=== PATIENT | female | born 1955 | race Caucasian/White ===

== ENCOUNTER 2020-01-18 09:20 | Outpatient (REF) | payer OTHER, SELFPAY ==
[2020-01-18 12:29] LABS: Erythrocyte Sedimentation Rate 10 MM/HR (0-20)
== END 2020-01-18 09:21 | disposition home or self-care (01) ==
LOC: HO.LAB 09:20
PROVIDERS: PCP Internal Medicine; Visit Provider Student in an Organized Health Care Education/Training Program
DX: M31.6 Other giant cell arteritis (principal); Z79.52 Long term (current) use of systemic steroids
CPT/HCPCS: 36415; 85652; 86140

== ENCOUNTER → 2020-02-25 08:02 | Outpatient (BNVA) | payer OTHER, SELFPAY | PROVIDERS: PCP Internal Medicine; Referring Provider Internal Medicine; Visit Provider Student in an Organized Health Care Education/Training Program | DX: Z76.89 Persons encountering health services in other specified circumstances (principal) ==

== ENCOUNTER 2020-04-27 12:30 | Outpatient (REF) | payer OTHER, SELFPAY ==
[2020-04-27 14:35] LABS: C Reactive Protein 0.29 mg/dL (< or = 0.50)
[2020-04-27 14:40] LABS: Erythrocyte Sedimentation Rate 8 MM/HR (0-20)
== END 2020-04-27 12:31 | disposition home or self-care (01) ==
LOC: HO.LAB 12:30
PROVIDERS: PCP Internal Medicine; Visit Provider Student in an Organized Health Care Education/Training Program
DX: M35.3 Polymyalgia rheumatica (principal)
CPT/HCPCS: 36415; 85652; 86140

== ENCOUNTER → 2020-05-04 08:18 | Outpatient (BNVA) | payer OTHER, SELFPAY | PROVIDERS: PCP Internal Medicine; Referring Provider Internal Medicine; Visit Provider Student in an Organized Health Care Education/Training Program ==

== ENCOUNTER 2020-06-30 08:06 | Outpatient (REF) | payer OTHER, SELFPAY ==
[2020-06-30 09:31] LABS: C Reactive Protein 0.24 mg/dL (< or = 0.50)
[2020-06-30 10:02] LABS: Erythrocyte Sedimentation Rate 14 MM/HR (0-20)
== END 2020-06-30 08:07 | disposition home or self-care (01) ==
LOC: HO.LAB 08:06
PROVIDERS: PCP Internal Medicine; Visit Provider Student in an Organized Health Care Education/Training Program
DX: M35.3 Polymyalgia rheumatica (principal)
CPT/HCPCS: 36415; 85652; 86140

== ENCOUNTER 2020-07-07 08:40 | Outpatient (REF) | payer OTHER, SELFPAY ==
--- NOTE | ~2020-07-07 | XR_ITS ---
EXAMINATION: XR SHOULDER , BILATERAL CLINICAL INFORMATION: Polymyalgia COMPARISON: Prior study 2019 TECHNIQUE: AP external rotation, Grashey, scapular Y, and axillary views of the shoulder. FINDINGS: BONES: There is no fracture or dislocation, no osteolytic or osteoblastic lesion. JOINTS: Glenohumeral joint is properly positioned. There is mild degenerative osteoarthritis of the acromioclavicular joint. SOFT TISSUE AND INCLUDED LUNG: There are surgical clips in the left axilla. Otherwise unremarkable. XR/XR shoulder LT min 2V IMPRESSION: Mild degenerative osteoarthritic changes of AC joints bilaterally. No fracture or dislocation. No destructive bone lesion. No soft tissue calcifications.
--- NOTE | ~2020-07-07 | XR_ITS ---
EXAMINATION: XR SHOULDER , BILATERAL CLINICAL INFORMATION: Polymyalgia COMPARISON: Prior study 2019 TECHNIQUE: AP external rotation, Grashey, scapular Y, and axillary views of the shoulder. FINDINGS: BONES: There is no fracture or dislocation, no osteolytic or osteoblastic lesion. JOINTS: Glenohumeral joint is properly positioned. There is mild degenerative osteoarthritis of the acromioclavicular joint. SOFT TISSUE AND INCLUDED LUNG: There are surgical clips in the left axilla. Otherwise unremarkable. XR/XR shoulder RT min 2V IMPRESSION: Mild degenerative osteoarthritic changes of AC joints bilaterally. No fracture or dislocation. No destructive bone lesion. No soft tissue calcifications.
== END 2020-07-07 08:41 | disposition home or self-care (01) ==
LOC: HO.XRAY 08:40
PROVIDERS: PCP Internal Medicine; Visit Provider Student in an Organized Health Care Education/Training Program
DX: M35.3 Polymyalgia rheumatica (principal); Z79.52 Long term (current) use of systemic steroids
CPT/HCPCS: 73030

== ENCOUNTER 2020-09-06 09:34 | Outpatient (REF) | payer OTHER, SELFPAY ==
[2020-09-06 10:59] LABS: C Reactive Protein 1.11 mg/dL (< or = 0.50)
[2020-09-06 11:23] LABS: Erythrocyte Sedimentation Rate 27 MM/HR (0-20)
== END 2020-09-06 09:35 | disposition home or self-care (01) ==
LOC: HO.LAB 09:34
PROVIDERS: PCP Internal Medicine; Visit Provider Student in an Organized Health Care Education/Training Program
DX: M35.3 Polymyalgia rheumatica (principal)
CPT/HCPCS: 36415; 85652; 86140

== ENCOUNTER → 2020-09-14 09:41 | Outpatient (BNVA) | payer OTHER, SELFPAY | PROVIDERS: Visit Provider Student in an Organized Health Care Education/Training Program ==

== ENCOUNTER 2020-10-18 10:54 | Outpatient (REF) | payer OTHER, SELFPAY ==
[2020-10-18 13:14] LABS: Alanine Aminotransferase < 6 U/L (0-31); Albumin Level 3.9 g/dL (3.5-5.0); Alkaline Phosphatase 51 U/L (39-117); Anion Gap 11 (12-20); Aspartate Amino Transferase 21 U/L (5-31); Bilirubin Total 0.6 mg/dL (0.0-1.0); Blood Urea Nitrogen 14 mg/dL (9-16); Calcium 9.3 mg/dL (8.4-10.2); Carbon Dioxide 28 mmol/L (22-29); Chloride 105 mmol/L (96-108); Estimated Glomerular Filt Rate > 60; Glucose Random 98 mg/dL (60-115); Potassium 4.6 mmol/L (3.3-5.1); Sodium 139 mmol/L (135-145); Total Protein 6.8 g/dL (6.5-8.0)
[2020-10-18 13:46] LABS: Erythrocyte Sedimentation Rate 14 MM/HR (0-20)
== END 2020-10-18 10:55 | disposition home or self-care (01) ==
LOC: HO.LAB 10:54
PROVIDERS: PCP Internal Medicine; Visit Provider Student in an Organized Health Care Education/Training Program
DX: M35.3 Polymyalgia rheumatica (principal)
CPT/HCPCS: 36415; 80053; 85652; 86140

== ENCOUNTER → 2020-10-27 12:32 | Outpatient (BNVA) | payer OTHER, SELFPAY | PROVIDERS: PCP Internal Medicine; Visit Provider Nurse Practitioner Family ==

== ENCOUNTER 2020-11-30 15:11 | Outpatient (REF) | payer OTHER, SELFPAY ==
[2020-11-30 16:57] LABS: Erythrocyte Sedimentation Rate 14 MM/HR (0-20)
== END 2020-11-30 15:12 | disposition home or self-care (01) ==
LOC: HO.LAB 15:11
PROVIDERS: PCP Internal Medicine; Visit Provider Nurse Practitioner Family
DX: M35.3 Polymyalgia rheumatica (principal)
CPT/HCPCS: 36415; 85652; 86140

== ENCOUNTER → 2020-12-07 08:05 | Outpatient (BNVA) | payer OTHER, SELFPAY | PROVIDERS: PCP Internal Medicine; Visit Provider Nurse Practitioner Family ==

== ENCOUNTER 2020-12-22 10:46 | Outpatient (REF) | payer OTHER, SELFPAY ==
[2020-12-22 11:01] LABS: MANUAL DIFF FLAG NO
[2020-12-22 11:17] LABS: Basophils Percent Auto 0.3 % (0-2); Eosinophils Percent Auto 0.2 % (0-4); Hemoglobin 13.6 g/dl (12.0-16.0); Imm Gran Abs Auto 0.02 X10*3/uL (0.00-0.03); Imm Gran Pct Auto 0.3 % (0.0-0.4); Lymphocytes Absolute Auto 0.9 X10*3/uL (1.2-4.9); Lymphocytes Percent Auto 15.3 % (20-40); Mean Corpuscular HGB Conc 33.2 g/dl (31.0-35.0); Mean Corpuscular Hemoglobin 31.1 pg (27.0-33.0); Mean Corpuscular Volume 93.6 fL (80-98); Mean Platelet Volume 10.3 fL (9.4-12.3); Monocytes Absolute Auto 0.3 X10*3/uL (0.1-1.2); Monocytes Percent Auto 5.5 % (2-11); Neutrophils Absolute Auto 4.7 X10*3/uL (2.0-8.3); Neutrophils Percent Auto 78.4 % (45-73); Platelet Count 238 X10*3/uL (160-400); Red Blood Count 4.38 X10*6/uL (4.20-5.50); Red Cell Distribution Width 13.2 % (11.0-16.0)
[2020-12-22 11:50] LABS: Alanine Aminotransferase 8 U/L (0-31); Alkaline Phosphatase 58 U/L (39-117); Anion Gap 12 (12-20); Aspartate Amino Transferase 23 U/L (5-31); Bilirubin Total 0.7 mg/dL (0.0-1.0); Blood Urea Nitrogen 16 mg/dL (9-16); Calcium 9.7 mg/dL (8.4-10.2); Carbon Dioxide 27 mmol/L (22-29); Chloride 105 mmol/L (96-108); Estimated Glomerular Filt Rate > 60; Glucose Random 104 mg/dL (60-115); Potassium 4.8 mmol/L (3.3-5.1); Sodium 139 mmol/L (135-145); Total Protein 6.9 g/dL (6.5-8.0)
[2020-12-22 12:07] LABS: HBS Num1 0.28 mIU/mL (0-7.99); HBc Num1 0.06 S/CO (0.00-0.79); Hepatitis B Core Antibody Nonreactive (Nonreactive); ~Hepatitis B Surface Antibody NONREACTIVE (Nonreactive); ~Hepatitis C Antibody Nonreactive (Nonreactive)
[2020-12-22 12:28] LABS: HBsAGNum1 0.15 S/CO (0.00-0.99); Hepatitis A Antibody IgM 0.29 Index (0-0.79); Hepatitis B Surface Antigen Negative (Negative); ~Hepatitis A Antibody IgM Nonreactive (Nonreactive)
[2020-12-25 11:46] LABS: TS Negative Control Passed; TS Panel A 0; TS Panel B 0; TS Positive Control Passed; TSpotTB Negative (SeeBelow)
== END 2020-12-22 10:47 | disposition home or self-care (01) ==
LOC: HO.LAB 10:46
PROVIDERS: PCP Internal Medicine; Visit Provider Nurse Practitioner Family
DX: M35.3 Polymyalgia rheumatica (principal)
CPT/HCPCS: 36415; 80053; 85025; 86481; 86704; 86706; 86709; 86803; 87340

== ENCOUNTER 2021-01-17 12:43 | Outpatient (REF) | payer OTHER, SELFPAY ==
[2021-01-17 12:50] LABS: MANUAL DIFF FLAG NO
[2021-01-17 13:35] LABS: Basophils Percent Auto 0.3 % (0-2); Eosinophils Percent Auto 0.2 % (0-4); Hemoglobin 13.8 g/dl (12.0-16.0); Imm Gran Abs Auto 0.03 X10*3/uL (0.00-0.03); Imm Gran Pct Auto 0.5 % (0.0-0.4); Lymphocytes Absolute Auto 1.2 X10*3/uL (1.2-4.9); Lymphocytes Percent Auto 18.1 % (20-40); Mean Corpuscular HGB Conc 32.9 g/dl (31.0-35.0); Mean Corpuscular Volume 94.4 fL (80-98); Mean Platelet Volume 10.9 fL (9.4-12.3); Monocytes Absolute Auto 0.4 X10*3/uL (0.1-1.2); Monocytes Percent Auto 5.6 % (2-11); Neutrophils Percent Auto 75.3 % (45-73); Platelet Count 233 X10*3/uL (160-400); Red Blood Count 4.45 X10*6/uL (4.20-5.50); Red Cell Distribution Width 13.1 % (11.0-16.0); White Blood Count 6.6 X10*3/uL (4.8-10.8)
[2021-01-17 13:58] LABS: Alanine Aminotransferase 6 U/L (0-31); Albumin Level 4.1 g/dL (3.5-5.0); Alkaline Phosphatase 54 U/L (39-117); Anion Gap 14 (12-20); Aspartate Amino Transferase 24 U/L (5-31); Bilirubin Total 0.6 mg/dL (0.0-1.0); Blood Urea Nitrogen 12 mg/dL (9-16); C Reactive Protein 0.25 mg/dL (< or = 0.50); Calcium 9.6 mg/dL (8.4-10.2); Carbon Dioxide 28 mmol/L (22-29); Chloride 103 mmol/L (96-108); Estimated Glomerular Filt Rate > 60; Glucose Random 106 mg/dL (60-115); Potassium 4.9 mmol/L (3.3-5.1); Sodium 140 mmol/L (135-145)
[2021-01-17 14:27] LABS: Erythrocyte Sedimentation Rate 16 MM/HR (0-20)
== END 2021-01-17 12:44 | disposition home or self-care (01) ==
LOC: HO.LAB 12:43
PROVIDERS: PCP Internal Medicine; Visit Provider Nurse Practitioner Family
DX: M35.3 Polymyalgia rheumatica (principal); Z79.52 Long term (current) use of systemic steroids
CPT/HCPCS: 36415; 80053; 85025; 85652; 86140

== ENCOUNTER → 2021-01-18 09:09 | Outpatient (BNVA) | payer OTHER, SELFPAY | PROVIDERS: PCP Internal Medicine; Visit Provider Nurse Practitioner Family ==

== ENCOUNTER 2021-02-26 08:56 | Outpatient (REF) | payer OTHER, SELFPAY ==
[2021-02-26 10:20] LABS: C Reactive Protein 0.19 mg/dL (< or = 0.50)
[2021-02-26 10:47] LABS: Erythrocyte Sedimentation Rate 13 MM/HR (0-20)
== END 2021-02-26 08:57 | disposition home or self-care (01) ==
LOC: HO.LAB 08:56
PROVIDERS: PCP Internal Medicine; Visit Provider Nurse Practitioner Family
DX: M35.3 Polymyalgia rheumatica (principal)
CPT/HCPCS: 36415; 85652; 86140

== ENCOUNTER → 2021-03-02 08:03 | Outpatient (BNVA) | payer OTHER, SELFPAY | PROVIDERS: PCP Internal Medicine; Visit Provider Nurse Practitioner Family ==

== ENCOUNTER 2021-05-08 08:03 | Outpatient (REF) | payer OTHER, SELFPAY ==
[2021-05-08 09:43] LABS: Erythrocyte Sedimentation Rate 25 MM/HR (0-20)
[2021-05-08 10:06] LABS: C Reactive Protein 0.89 mg/dL (< or = 0.50)
== END 2021-05-08 08:04 | disposition home or self-care (01) ==
LOC: HO.LAB 08:03
PROVIDERS: PCP Internal Medicine; Visit Provider Nurse Practitioner Family
DX: M35.3 Polymyalgia rheumatica (principal)
CPT/HCPCS: 36415; 85652; 86140

== ENCOUNTER → 2021-05-09 09:09 | Outpatient (BNVA) | payer OTHER, SELFPAY | PROVIDERS: PCP Internal Medicine; Visit Provider Nurse Practitioner Family ==

== ENCOUNTER 2021-05-24 09:09 | Outpatient (REF) | payer OTHER, SELFPAY ==
[2021-05-24 12:49] LABS: C Reactive Protein 0.44 mg/dL (< or = 0.50)
[2021-05-24 14:42] LABS: Erythrocyte Sedimentation Rate 25 MM/HR (0-20)
== END 2021-05-24 09:10 | disposition home or self-care (01) ==
LOC: HO.LAB 09:09
PROVIDERS: PCP Internal Medicine; Visit Provider Nurse Practitioner Family
DX: M35.3 Polymyalgia rheumatica (principal)
CPT/HCPCS: 36415; 85652; 86140

== ENCOUNTER 2021-07-12 08:50 | Outpatient (REF) | payer OTHER, SELFPAY ==
[2021-07-12 10:07] LABS: C Reactive Protein 0.84 mg/dL (< or = 0.50)
[2021-07-12 11:34] LABS: Erythrocyte Sedimentation Rate 25 MM/HR (0-20)
== END 2021-07-12 08:51 | disposition home or self-care (01) ==
LOC: HO.LAB 08:50
PROVIDERS: PCP Internal Medicine; Visit Provider Nurse Practitioner Family
DX: M35.3 Polymyalgia rheumatica (principal)
CPT/HCPCS: 36415; 85652; 86140

== ENCOUNTER 2021-07-16 08:37 | Outpatient (REF) | payer OTHER, SELFPAY ==
[2021-07-16 09:41] LABS: MANUAL DIFF FLAG NO
[2021-07-16 11:07] LABS: Basophils Percent Auto 0.3 % (0-2); Eosinophils Absolute Auto 0.1 X10*3/uL (0.0-0.4); Eosinophils Percent Auto 0.9 % (0-4); Hematocrit 39.8 % (37.0-47.0); Imm Gran Abs Auto 0.03 X10*3/uL (0.00-0.03); Imm Gran Pct Auto 0.3 % (0.0-0.4); Lymphocytes Absolute Auto 1.4 X10*3/uL (1.2-4.9); Mean Corpuscular HGB Conc 32.7 g/dl (31.0-35.0); Mean Corpuscular Hemoglobin 30.2 pg (27.0-33.0); Mean Corpuscular Volume 92.3 fL (80.0-98.0); Mean Platelet Volume 10.7 fL (9.4-12.3); Monocytes Absolute Auto 0.8 X10*3/uL (0.1-1.2); Neutrophils Absolute Auto 7.1 x10*3/uL (2.0-8.3); Neutrophils Percent Auto 75.5 % (45-73); Platelet Count 286 X10*3/uL (160-400); Red Blood Count 4.31 X10*6/uL (4.20-5.50); Red Cell Distribution Width 13.6 % (11.0-16.0); White Blood Count 9.4 X10*3/uL (4.8-10.8)
[2021-07-16 11:47] LABS: Alanine Aminotransferase 6 U/L (0-31); Albumin Level 3.9 g/dL (3.5-5.0); Alkaline Phosphatase 58 U/L (39-117); Anion Gap 11 (12-20); Aspartate Amino Transferase 22 U/L (5-31); Bilirubin Total 0.7 mg/dL (0.0-1.0); Blood Urea Nitrogen 15 mg/dL (9-16); C Reactive Protein 0.45 mg/dL (< or = 0.50); Calcium 9.7 mg/dL (8.4-10.2); Carbon Dioxide 31 mmol/L (22-29); Chloride 104 mmol/L (96-108); Estimated Glomerular Filt Rate > 60; Glucose Random 79 mg/dL (60-115); Potassium 4.8 mmol/L (3.3-5.1); Sodium 141 mmol/L (135-145); Total Protein 6.8 g/dL (6.5-8.0)
[2021-07-16 12:11] LABS: Erythrocyte Sedimentation Rate 23 MM/HR (0-20)
== END 2021-07-16 08:38 | disposition home or self-care (01) ==
LOC: HO.LAB 08:37
PROVIDERS: PCP Internal Medicine; Visit Provider Nurse Practitioner Family
DX: M35.3 Polymyalgia rheumatica (principal); Z79.52 Long term (current) use of systemic steroids
CPT/HCPCS: 36415; 80053; 85025; 85652; 86140

== ENCOUNTER 2021-09-11 08:04 | Outpatient (REF) | payer OTHER, SELFPAY ==
--- NOTE | ~2021-09-11 | MM_ITS ---
EXAMINATION: BONE DENSITOMETRY CLINICAL INDICATION: Polymyalgia rheumatica. COMPARISON: Baseline BD dated 09/10/2019. TECHNIQUE: Using a [employer] DXA System (software version: 13.1) manufactured by [employer], dual-energy x-ray absorptiometry was performed of the lumbar spine and left hip. The images are of good technical quality. Summary results are attached. FINDINGS: AP SPINE L1-L4: Current: BMD 1.264 g/cm2, Z-score 2.1, T-score 0.7, normal, 3.8% increase from baseline (<5% change is not significant). Baseline: BMD 1.218 g/cm2. LEFT FEMUR, NECK: Current: BMD 0.902 g/cm2, Z-score 0.5, T-score -1.0, normal. Baseline: BMD 0.883 g/cm2. LEFT FEMUR, TOTAL: Current: BMD 1.009 g/cm2, Z-score 1.2, T-score 0.0, normal, 4.3% increase from baseline (<5% change is not significant). Baseline: BMD 0.967 g/cm2. IDENTIFIED RISK FACTORS: Menopause, hysterectomy, bilateral oophorectomy, glucocorticoids (chronic). HISTORY OF FRACTURE: None listed. MEDICATIONS: Calcium supplements or multivitamin, vitamin D, bisphosphonates. MM/XR DEXA axial skeleton IMPRESSION: 1. DIAGNOSIS: Normal bone density based on the lowest T-score value of -1.0 in the femoral neck applying World Health Organization criteria. 2. 10-YEAR FRACTURE RISK PREDICTION, FRAX: According to the guidelines, FRAX calculation should only be performed on patients in the osteopenia bone density category. Therefore, FRAX was not performed on this patient. 3. Treatment Recommendations: NOF guidelines recommend consideration for treatment in postmenopausal women and men age 50 and older presenting with the following: -A hip or vertebral (clinical or morphometric) fracture. -T-score less than or equal to -2.5 at the femoral neck or spine after appropriate evaluation to exclude secondary causes. -Low bone mass at the hip or spine and a 10-year fracture probability by FRAX of greater than or equal to 3% for hip fracture or greater than or equal to 20% for major osteoporotic fracture based on the [place] adapted WHO algorithm. 4. Other Recommendations: All treatment decisions require clinical judgment and consideration of individual patient factors, including patient preferences, comorbidities, previous drug use, risk factors not captured in the FRAX model (e.g. frailty, falls, vitamin D deficiency, increased bone turnover, interval significant decline in bone density) and possible under or overestimation of fracture risk by FRAX. FUTURE SCAN RECOMMENDATION: People with diagnosed cases of osteoporosis or at high risk for fracture should have regular bone mineral density tests. For patients eligible for Medicare, routine testing is allowed once every 2 years. The testing frequency can be increased to one year for patients who have rapidly progressing disease, those who are receiving or discontinuing medical therapy to restore bone mass, or have additional risk factors.
== END 2021-09-11 08:05 | disposition home or self-care (01) ==
LOC: HO.MAMMO 08:04
PROVIDERS: PCP Internal Medicine; Visit Provider Nurse Practitioner Family
DX: Z13.820 Encounter for screening for osteoporosis (principal); M35.3 Polymyalgia rheumatica; Z78.0 Asymptomatic menopausal state
CPT/HCPCS: 77080

== ENCOUNTER 2021-09-11 08:28 | Outpatient (REF) | payer OTHER, SELFPAY ==
[2021-09-11 10:09] LABS: Erythrocyte Sedimentation Rate 20 MM/HR (0-20)
== END 2021-09-11 08:29 | disposition home or self-care (01) ==
LOC: HO.LAB 08:28
PROVIDERS: PCP Internal Medicine; Visit Provider Nurse Practitioner Family
DX: M35.3 Polymyalgia rheumatica (principal)
CPT/HCPCS: 36415; 85652; 86140

== ENCOUNTER 2021-10-03 10:09 | Outpatient (REF) | payer OTHER, SELFPAY ==
[2021-10-03 11:07] LABS: Alanine Aminotransferase 7 U/L (0-31); Alkaline Phosphatase 60 U/L (39-117); Anion Gap 12 (12-20); Aspartate Amino Transferase 23 U/L (5-31); Bilirubin Total 0.5 mg/dL (0.0-1.0); Blood Urea Nitrogen 14 mg/dL (9-16); C Reactive Protein 0.34 mg/dL (< or = 0.50); Calcium 9.2 mg/dL (8.4-10.2); Carbon Dioxide 27 mmol/L (22-29); Chloride 106 mmol/L (96-108); Estimated Glomerular Filt Rate > 60; Glucose Random 98 mg/dL (60-115); Potassium 4.7 mmol/L (3.3-5.1); Sodium 140 mmol/L (135-145); Total Protein 6.9 g/dL (6.5-8.0)
[2021-10-03 11:24] LABS: Erythrocyte Sedimentation Rate 23 MM/HR (0-20)
[2021-10-03 11:54] LABS: MANUAL DIFF FLAG NO
[2021-10-03 11:57] LABS: Basophils Percent Auto 0.5 % (0-2); Eosinophils Percent Auto 0.5 % (0-4); Hematocrit 39.3 % (37.0-47.0); Hemoglobin 13.1 g/dl (12.0-16.0); Imm Gran Abs Auto 0.02 X10*3/uL (0.00-0.03); Imm Gran Pct Auto 0.3 % (0.0-0.4); Lymphocytes Absolute Auto 1.2 X10*3/uL (1.2-4.9); Lymphocytes Percent Auto 17.9 % (20-40); Mean Corpuscular HGB Conc 33.3 g/dl (31.0-35.0); Mean Corpuscular Hemoglobin 30.6 pg (27.0-33.0); Mean Corpuscular Volume 91.8 fL (80.0-98.0); Mean Platelet Volume 11.2 fL (9.4-12.3); Monocytes Absolute Auto 0.5 X10*3/uL (0.1-1.2); Monocytes Percent Auto 8.4 % (2-11); Neutrophils Absolute Auto 4.7 x10*3/uL (2.0-8.3); Neutrophils Percent Auto 72.4 % (45-73); Platelet Count 282 X10*3/uL (160-400); Red Blood Count 4.28 X10*6/uL (4.20-5.50); Red Cell Distribution Width 13.8 % (11.0-16.0); White Blood Count 6.4 X10*3/uL (4.8-10.8)
== END 2021-10-03 10:10 | disposition home or self-care (01) ==
LOC: HO.LAB 10:09
PROVIDERS: PCP Internal Medicine; Visit Provider Nurse Practitioner Family
DX: M35.3 Polymyalgia rheumatica (principal)
CPT/HCPCS: 36415; 80053; 85025; 85652; 86140

== ENCOUNTER 2021-12-06 09:17 | Outpatient (REF) | payer OTHER, SELFPAY ==
[2021-12-06 10:48] LABS: MANUAL DIFF FLAG NO
[2021-12-06 11:02] LABS: Basophils Absolute Auto 0.1 X10*3/uL (0.0-0.2); Basophils Percent Auto 0.9 % (0-2); Eosinophils Absolute Auto 0.1 X10*3/uL (0.0-0.4); Eosinophils Percent Auto 1.8 % (0-4); Hematocrit 39.5 % (37.0-47.0); Hemoglobin 12.9 g/dl (12.0-16.0); Imm Gran Abs Auto 0.01 X10*3/uL (0.00-0.03); Imm Gran Pct Auto 0.2 % (0.0-0.4); Lymphocytes Absolute Auto 1.1 X10*3/uL (1.2-4.9); Lymphocytes Percent Auto 19.6 % (20-40); Mean Corpuscular HGB Conc 32.7 g/dl (31.0-35.0); Mean Corpuscular Hemoglobin 29.8 pg (27.0-33.0); Mean Corpuscular Volume 91.2 fL (80.0-98.0); Mean Platelet Volume 11.5 fL (9.4-12.3); Monocytes Absolute Auto 0.6 X10*3/uL (0.1-1.2); Monocytes Percent Auto 9.8 % (2-11); Neutrophils Absolute Auto 3.9 x10*3/uL (2.0-8.3); Neutrophils Percent Auto 67.7 % (45-73); Platelet Count 283 X10*3/uL (160-400); Red Blood Count 4.33 X10*6/uL (4.20-5.50); Red Cell Distribution Width 13.3 % (11.0-16.0); White Blood Count 5.7 X10*3/uL (4.8-10.8)
[2021-12-06 11:21] LABS: Alanine Aminotransferase 6 U/L (0-31); Aspartate Amino Transferase 20 U/L (5-31); C Reactive Protein 0.77 mg/dL (< or = 0.50); Estimated Glomerular Filt Rate > 60
[2021-12-06 12:56] LABS: Erythrocyte Sedimentation Rate 38 MM/HR (0-20)
== END 2021-12-06 09:18 | disposition home or self-care (01) ==
LOC: HO.10HDL 09:17
PROVIDERS: Visit Provider Nurse Practitioner Family
DX: M35.3 Polymyalgia rheumatica (principal); Z79.899 Other long term (current) drug therapy
CPT/HCPCS: 36415; 82565; 84450; 84460; 85025; 85652; 86140

== ENCOUNTER 2022-01-07 09:03 | Outpatient (REF) | payer OTHER, SELFPAY ==
[2022-01-07 10:49] LABS: Erythrocyte Sedimentation Rate 28 MM/HR (0-20)
[2022-01-07 11:51] LABS: C Reactive Protein 1.12 mg/dL (< or = 0.50)
== END 2022-01-07 09:04 | disposition home or self-care (01) ==
LOC: HO.LAB 09:03
PROVIDERS: PCP Internal Medicine; Visit Provider Nurse Practitioner Family
DX: M35.3 Polymyalgia rheumatica (principal)
CPT/HCPCS: 36415; 85652; 86140

== ENCOUNTER 2022-01-22 14:31 | Outpatient (REF) | payer OTHER, SELFPAY ==
[2022-01-22 15:55] LABS: C Reactive Protein 1.08 mg/dL (< or = 0.50)
[2022-01-22 16:12] LABS: Erythrocyte Sedimentation Rate 40 MM/HR (0-20)
== END 2022-01-22 14:32 | disposition home or self-care (01) ==
LOC: HO.LAB 14:31
PROVIDERS: PCP Nurse Practitioner Family; Visit Provider Internal Medicine
DX: M35.3 Polymyalgia rheumatica (principal)
CPT/HCPCS: 36415; 85652; 86140

== ENCOUNTER 2022-03-15 15:14 | Outpatient (REF) | payer OTHER, SELFPAY ==
[2022-03-15 15:28] LABS: MANUAL DIFF FLAG NO
[2022-03-15 16:01] LABS: Basophils Percent Auto 0.6 % (0-2); Eosinophils Percent Auto 0.2 % (0-4); Hematocrit 42.7 % (37.0-47.0); Hemoglobin 13.8 g/dl (12.0-16.0); Imm Gran Abs Auto 0.01 X10*3/uL (0.00-0.03); Imm Gran Pct Auto 0.2 % (0.0-0.4); Lymphocytes Absolute Auto 1.3 X10*3/uL (1.2-4.9); Lymphocytes Percent Auto 24.4 % (20-40); Mean Corpuscular HGB Conc 32.3 g/dl (31.0-35.0); Mean Corpuscular Volume 89.7 fL (80.0-98.0); Mean Platelet Volume 10.4 fL (9.4-12.3); Monocytes Absolute Auto 0.5 X10*3/uL (0.1-1.2); Monocytes Percent Auto 8.5 % (2-11); Neutrophils Absolute Auto 3.6 x10*3/uL (2.0-8.3); Neutrophils Percent Auto 66.1 % (45-73); Platelet Count 254 X10*3/uL (160-400); Red Blood Count 4.76 X10*6/uL (4.20-5.50); Red Cell Distribution Width 14.6 % (11.0-16.0); White Blood Count 5.4 X10*3/uL (4.8-10.8)
[2022-03-15 16:22] LABS: Alanine Aminotransferase < 6 U/L (0-31); Albumin Level 4.1 g/dL (3.5-5.0); Alkaline Phosphatase 65 U/L (39-117); Anion Gap 12 (12-20); Aspartate Amino Transferase 22 U/L (5-31); Bilirubin Total 0.4 mg/dL (0.0-1.0); Blood Urea Nitrogen 18 mg/dL (9-16); C Reactive Protein < 0.10 mg/dL (< or = 0.50); Calcium 10.1 mg/dL (8.4-10.2); Carbon Dioxide 30 mmol/L (22-29); Chloride 105 mmol/L (96-108); Estimated Glomerular Filt Rate > 60; Glucose Random 105 mg/dL (60-115); Potassium 4.7 mmol/L (3.3-5.1); Sodium 142 mmol/L (135-145)
[2022-03-15 16:39] LABS: Erythrocyte Sedimentation Rate 12 MM/HR (0-20)
== END 2022-03-15 15:15 | disposition home or self-care (01) ==
LOC: HO.LAB 15:14
PROVIDERS: PCP Internal Medicine; Visit Provider Nurse Practitioner Family
DX: M35.3 Polymyalgia rheumatica (principal)
CPT/HCPCS: 36415; 80053; 85025; 85652; 86140

== ENCOUNTER 2022-04-26 08:13 | Outpatient (REF) | payer OTHER, SELFPAY ==
[2022-04-26 08:40] LABS: MANUAL DIFF FLAG NO
[2022-04-26 09:24] LABS: Basophils Percent Auto 0.6 % (0-2); Eosinophils Absolute Auto 0.1 X10*3/uL (0.0-0.4); Eosinophils Percent Auto 1.7 % (0-4); Hematocrit 43.5 % (37.0-47.0); Hemoglobin 14.4 g/dl (12.0-16.0); Imm Gran Abs Auto 0.02 X10*3/uL (0.00-0.03); Imm Gran Pct Auto 0.3 % (0.0-0.4); Lymphocytes Absolute Auto 1.5 X10*3/uL (1.2-4.9); Lymphocytes Percent Auto 22.7 % (20-40); Mean Corpuscular HGB Conc 33.1 g/dl (31.0-35.0); Mean Corpuscular Hemoglobin 30.2 pg (27.0-33.0); Mean Corpuscular Volume 91.2 fL (80.0-98.0); Mean Platelet Volume 10.7 fL (9.4-12.3); Monocytes Absolute Auto 0.5 X10*3/uL (0.1-1.2); Monocytes Percent Auto 8.4 % (2-11); Neutrophils Absolute Auto 4.2 x10*3/uL (2.0-8.3); Neutrophils Percent Auto 66.3 % (45-73); Platelet Count 259 X10*3/uL (160-400); Red Blood Count 4.77 X10*6/uL (4.20-5.50); Red Cell Distribution Width 14.4 % (11.0-16.0); White Blood Count 6.4 X10*3/uL (4.8-10.8)
[2022-04-26 09:47] LABS: Alanine Aminotransferase 7 U/L (0-31); Aspartate Amino Transferase 22 U/L (5-31); C Reactive Protein 0.23 mg/dL (< or = 0.50); Estimated Glomerular Filt Rate > 60
[2022-04-26 10:06] LABS: Erythrocyte Sedimentation Rate 16 MM/HR (0-20)
== END 2022-04-26 08:14 | disposition home or self-care (01) ==
LOC: HO.LAB 08:13
PROVIDERS: PCP Internal Medicine; Visit Provider Nurse Practitioner Family
DX: M35.3 Polymyalgia rheumatica (principal); Z79.899 Other long term (current) drug therapy
CPT/HCPCS: 36415; 82565; 84450; 84460; 85025; 85652; 86140

== ENCOUNTER → 2022-04-30 07:56 | Outpatient (BNVA) | payer OTHER, SELFPAY | PROVIDERS: PCP Internal Medicine; Visit Provider Nurse Practitioner Family | DX: Z13.89 Encounter for screening for other disorder (principal) ==

== ENCOUNTER 2022-05-29 15:30 | Outpatient (REF) | payer OTHER, SELFPAY ==
[2022-05-29 17:08] LABS: C Reactive Protein 0.34 mg/dL (< or = 0.50); Erythrocyte Sedimentation Rate 22 MM/HR (0-20)
== END 2022-05-29 15:31 | disposition home or self-care (01) ==
LOC: HO.LAB 15:30
PROVIDERS: PCP Internal Medicine; Visit Provider Nurse Practitioner Family
DX: M35.3 Polymyalgia rheumatica (principal)
CPT/HCPCS: 36415; 85652; 86140

== ENCOUNTER → 2022-06-05 07:34 | Outpatient (BNVA) | payer OTHER, SELFPAY | PROVIDERS: PCP Internal Medicine; Visit Provider Nurse Practitioner Family | DX: Z13.89 Encounter for screening for other disorder (principal) ==

== ENCOUNTER 2022-07-04 16:09 | Outpatient (REF) | payer OTHER, SELFPAY ==
[2022-07-04 16:24] LABS: MANUAL DIFF FLAG NO
[2022-07-04 17:48] LABS: Basophils Percent Auto 0.4 % (0-2); Eosinophils Absolute Auto 0.1 X10*3/uL (0.0-0.4); Eosinophils Percent Auto 1.5 % (0-4); Hemoglobin 13.3 g/dl (12.0-16.0); Imm Gran Abs Auto 0.02 X10*3/uL (0.00-0.03); Imm Gran Pct Auto 0.4 % (0.0-0.4); Lymphocytes Absolute Auto 1.6 X10*3/uL (1.2-4.9); Lymphocytes Percent Auto 34.5 % (20-40); Mean Corpuscular HGB Conc 33.3 g/dl (31.0-35.0); Mean Corpuscular Hemoglobin 30.3 pg (27.0-33.0); Mean Corpuscular Volume 91.1 fL (80.0-98.0); Monocytes Absolute Auto 0.6 X10*3/uL (0.1-1.2); Monocytes Percent Auto 12.1 % (2-11); Neutrophils Absolute Auto 2.4 x10*3/uL (2.0-8.3); Neutrophils Percent Auto 51.1 % (45-73); Platelet Count 265 X10*3/uL (160-400); Red Blood Count 4.39 X10*6/uL (4.20-5.50); Red Cell Distribution Width 13.2 % (11.0-16.0); White Blood Count 4.6 X10*3/uL (4.8-10.8)
[2022-07-04 18:14] LABS: Alanine Aminotransferase 6 U/L (0-31); Alkaline Phosphatase 66 U/L (39-117); Anion Gap 13 (12-20); Aspartate Amino Transferase 20 U/L (5-31); Bilirubin Total 0.5 mg/dL (0.0-1.0); Blood Urea Nitrogen 12 mg/dL (9-16); C Reactive Protein 0.49 mg/dL (< or = 0.50); Calcium 9.3 mg/dL (8.4-10.2); Carbon Dioxide 27 mmol/L (22-29); Chloride 105 mmol/L (96-108); Estimated Glomerular Filt Rate > 60; Glucose Random 78 mg/dL (60-115); Potassium 4.4 mmol/L (3.3-5.1); Sodium 141 mmol/L (135-145); Total Protein 6.7 g/dL (6.5-8.0)
[2022-07-04 18:34] LABS: Erythrocyte Sedimentation Rate 32 MM/HR (0-20)
== END 2022-07-04 16:10 | disposition home or self-care (01) ==
LOC: HO.LAB 16:09
PROVIDERS: Visit Provider Nurse Practitioner Family
DX: M35.3 Polymyalgia rheumatica (principal)
CPT/HCPCS: 36415; 80053; 85025; 85652; 86140

== ENCOUNTER → 2022-07-17 07:31 | Outpatient (BNVA) | payer OTHER, SELFPAY | PROVIDERS: Visit Provider Nurse Practitioner Family | DX: M35.3 Polymyalgia rheumatica (principal) ==

== ENCOUNTER 2022-08-12 08:23 | Outpatient (REF) | payer OTHER, SELFPAY ==
[2022-08-12 09:33] LABS: C Reactive Protein 0.35 mg/dL (< or = 0.50)
[2022-08-12 09:44] LABS: Erythrocyte Sedimentation Rate 25 MM/HR (0-20)
== END 2022-08-12 08:24 | disposition home or self-care (01) ==
LOC: HO.LAB 08:23
PROVIDERS: Visit Provider Nurse Practitioner Family
DX: M35.3 Polymyalgia rheumatica (principal)
CPT/HCPCS: 36415; 85652; 86140

== ENCOUNTER → 2022-08-15 08:03 | Outpatient (BNVA) | payer OTHER, SELFPAY | PROVIDERS: Visit Provider Nurse Practitioner Family ==

== ENCOUNTER 2022-09-09 09:25 | Outpatient (REF) | payer OTHER, SELFPAY ==
[2022-09-09 09:36] LABS: MANUAL DIFF FLAG NO
[2022-09-09 10:02] LABS: Basophils Percent Auto 0.7 % (0-2); Eosinophils Absolute Auto 0.1 X10*3/uL (0.0-0.4); Eosinophils Percent Auto 1.9 % (0-4); Hematocrit 40.8 % (37.0-47.0); Hemoglobin 13.5 g/dl (12.0-16.0); Imm Gran Abs Auto 0.01 X10*3/uL (0.00-0.03); Imm Gran Pct Auto 0.2 % (0.0-0.4); Lymphocytes Absolute Auto 1.2 X10*3/uL (1.2-4.9); Lymphocytes Percent Auto 28.4 % (20-40); Mean Corpuscular HGB Conc 33.1 g/dl (31.0-35.0); Mean Corpuscular Volume 90.7 fL (80.0-98.0); Mean Platelet Volume 10.4 fL (9.4-12.3); Monocytes Absolute Auto 0.5 X10*3/uL (0.1-1.2); Neutrophils Absolute Auto 2.5 x10*3/uL (2.0-8.3); Neutrophils Percent Auto 57.8 % (45-73); Platelet Count 246 X10*3/uL (160-400); Red Cell Distribution Width 13.6 % (11.0-16.0); White Blood Count 4.3 X10*3/uL (4.8-10.8)
[2022-09-09 10:41] LABS: Erythrocyte Sedimentation Rate 23 MM/HR (0-20)
[2022-09-09 10:43] LABS: Alanine Aminotransferase < 5 U/L (0-31); Aspartate Amino Transferase 22 U/L (5-31); Estimated Glomerular Filt Rate > 60
== END 2022-09-09 09:26 | disposition home or self-care (01) ==
LOC: HO.LAB 09:25
PROVIDERS: PCP Internal Medicine; Visit Provider Nurse Practitioner Family
DX: M35.3 Polymyalgia rheumatica (principal); Z79.899 Other long term (current) drug therapy
CPT/HCPCS: 36415; 82565; 84450; 84460; 85025; 85652; 86140

== ENCOUNTER → 2022-09-11 08:21 | Outpatient (BNVA) | payer OTHER, SELFPAY | PROVIDERS: PCP Internal Medicine; Visit Provider Internal Medicine Rheumatology ==

== ENCOUNTER 2022-11-19 07:58 | Outpatient (REF) | payer OTHER, SELFPAY ==
--- NOTE | ~2022-11-19 | XR_ITS ---
EXAMINATION: XR KNEE, RIGHT CLINICAL INFORMATION: Polymyalgia rheumatica COMPARISON: None available. TECHNIQUE: Three views of the right knee. FINDINGS: No fracture or joint effusion. Alignment is anatomic. Joint spaces are maintained. There is mild subchondral sclerosis and marginal spurring in the lateral patellofemoral compartment. No bony erosive changes are seen. No abnormal soft tissue calcification. XR/XR knee RT 3V IMPRESSION: Mild osteoarthritis in the patellofemoral compartment.
--- NOTE | ~2022-11-19 | XR_ITS ---
EXAMINATION: XR HAND, RIGHT CLINICAL INFORMATION: Polymyalgia rheumatica COMPARISON: None available. TECHNIQUE: PA, lateral, and oblique views of the right hand. FINDINGS: Mineralization is normal. There is no fracture or dislocation. There is moderate narrowing of the DIP joints with mild marginal osteophyte consistent with osteoarthritis. The other joint spaces are preserved. No bony erosive changes are seen. There is no soft tissue swelling. XR/XR hand RT min 3V IMPRESSION: Mild osteoarthritis in the distal interphalangeal joints.
--- NOTE | ~2022-11-19 | XR_ITS ---
EXAMINATION: XR HAND, LEFT CLINICAL INFORMATION: Polymyalgia rheumatica COMPARISON: None available. TECHNIQUE: PA, lateral, and oblique views of the left hand. FINDINGS: Mineralization is normal. There is no fracture or dislocation. There is moderate narrowing of the DIP joints with mild marginal osteophyte consistent with osteoarthritis. The other joint spaces are preserved. No bony erosive changes are seen. There is no soft tissue swelling. XR/XR hand LT min 3V IMPRESSION: Mild osteoarthritis in the distal interphalangeal joints.
[2022-11-19 08:24] LABS: MANUAL DIFF FLAG NO
[2022-11-19 08:56] LABS: Basophils Percent Auto 0.8 % (0-2); Eosinophils Absolute Auto 0.1 X10*3/uL (0.0-0.4); Eosinophils Percent Auto 2.1 % (0-4); Hematocrit 40.4 % (37.0-47.0); Hemoglobin 13.4 g/dl (12.0-16.0); Imm Gran Abs Auto 0.02 X10*3/uL (0.00-0.03); Imm Gran Pct Auto 0.4 % (0.0-0.4); Lymphocytes Absolute Auto 1.2 X10*3/uL (1.2-4.9); Lymphocytes Percent Auto 23.8 % (20-40); Mean Corpuscular HGB Conc 33.2 g/dl (31.0-35.0); Mean Corpuscular Hemoglobin 30.6 pg (27.0-33.0); Mean Corpuscular Volume 92.2 fL (80.0-98.0); Mean Platelet Volume 10.5 fL (9.4-12.3); Monocytes Absolute Auto 0.5 X10*3/uL (0.1-1.2); Monocytes Percent Auto 9.2 % (2-11); Neutrophils Absolute Auto 3.3 x10*3/uL (2.0-8.3); Neutrophils Percent Auto 63.7 % (45-73); Platelet Count 260 X10*3/uL (160-400); Red Blood Count 4.38 X10*6/uL (4.20-5.50); Red Cell Distribution Width 13.9 % (11.0-16.0); White Blood Count 5.2 X10*3/uL (4.8-10.8)
[2022-11-19 09:32] LABS: Alanine Aminotransferase 5 U/L (0-31); Aspartate Amino Transferase 25 U/L (5-31); Estimated Glomerular Filt Rate > 60
[2022-11-19 09:37] LABS: Erythrocyte Sedimentation Rate 21 MM/HR (0-20)
== END 2022-11-19 07:59 | disposition home or self-care (01) ==
LOC: HO.LAB 07:58
PROVIDERS: PCP Internal Medicine; Visit Provider Internal Medicine Rheumatology
DX: M35.3 Polymyalgia rheumatica (principal); M17.11 Unilateral primary osteoarthritis, right knee; Z79.899 Other long term (current) drug therapy
CPT/HCPCS: 36415; 73130; 73562; 82565; 84450; 84460; 85025; 85652; 86140

== ENCOUNTER 2023-01-14 08:20 | Outpatient (REF) | payer OTHER, SELFPAY ==
[2023-01-14 08:43] LABS: MANUAL DIFF FLAG NO
[2023-01-14 09:02] LABS: Basophils Percent Auto 0.5 % (0-2); Eosinophils Absolute Auto 0.1 X10*3/uL (0.0-0.4); Eosinophils Percent Auto 2.1 % (0-4); Hematocrit 41.9 % (37.0-47.0); Hemoglobin 13.7 g/dl (12.0-16.0); Lymphocytes Absolute Auto 1.4 X10*3/uL (1.2-4.9); Lymphocytes Percent Auto 31.4 % (20-40); Mean Corpuscular HGB Conc 32.7 g/dl (31.0-35.0); Mean Corpuscular Hemoglobin 30.1 pg (27.0-33.0); Mean Corpuscular Volume 92.1 fL (80.0-98.0); Mean Platelet Volume 10.8 fL (9.4-12.3); Monocytes Absolute Auto 0.4 X10*3/uL (0.1-1.2); Neutrophils Absolute Auto 2.4 x10*3/uL (2.0-8.3); Platelet Count 272 X10*3/uL (160-400); Red Blood Count 4.55 X10*6/uL (4.20-5.50); Red Cell Distribution Width 12.9 % (11.0-16.0); White Blood Count 4.3 X10*3/uL (4.8-10.8)
[2023-01-14 09:41] LABS: Alanine Aminotransferase 6 U/L (0-31); Aspartate Amino Transferase 23 U/L (5-31); C Reactive Protein 0.38 mg/dL (< or = 0.50); Erythrocyte Sedimentation Rate 33 MM/HR (0-20); Estimated Glomerular Filt Rate > 60
== END 2023-01-14 08:21 | disposition home or self-care (01) ==
LOC: HO.LAB 08:20
PROVIDERS: PCP Internal Medicine; Visit Provider Internal Medicine Rheumatology
DX: M35.3 Polymyalgia rheumatica (principal); Z79.899 Other long term (current) drug therapy
CPT/HCPCS: 36415; 82565; 84450; 84460; 85025; 85652; 86140

== ENCOUNTER 2023-01-15 07:51 | Outpatient (AMB) | payer OTHER, SELFPAY ==
--- NOTE | 2023-01-15 08:00 | A.OFFVIS_ITS ---
Intake Vital Signs 01/15/23 08:12 Height 5 ft 3 in Weight 162 lb 14.746 oz BMI 28.9 BP 116/70 Blood Pressure Location Rt brachial Position Sitting Pulse 82 Pulse Source Pulse Oximeter Temp 97.1 F Temp Source Skin Pulse Oximetry (%) 97 Oxygen Delivery Method Room Air Intake Visit Reasons: pmr Intake Note: Patient presents today to follow up on PMR. 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 She remains on leflunomide 10 mg daily and prednisone 1 mg every other day. She gets occasional discomfort in the lateral hips at night. This does not seem to bother her with walking. There is occasional discomfort in the right knee with prolonged standing or walking. She did have x-rays of the right knee and hands done. She does not seem to have any side effects with her medications so far as she can tell. There is no headache, jaw claudication or visual disturbance. [facility] Medical History Actinic keratosis Constipation History of left breast cancer Polymyalgia rheumatica Family History Father Stroke Mother Arthritis COPD (chronic obstructive pulmonary disease) Social History Alcohol intake: current Alcohol intake frequency: a few times a week Alcohol type: wine Patient Tobacco Use Status: Never used Tobacco e-Cigarette/Vaping Use: Never Used Review of Systems Const Details: Negative for appetite change, weight change, fever, chills, malaise and fatigue Eyes Details: Negative for vision change, dry eyes,headaches and dizziness ENT Details: Negative for hearing change, tinnitus, oral ulcer, nose bleeds and oral dryness. Card Details: Negative chest pain, edema and syncope Resp Details: Negative for SOB, cough and wheezing GI Details: Negative indigestion/heartburn, nausea, abdominal pain, bowel changes, diarrhea, constipation and bloody stool. Endo Details: Negative for polyuria and polydypsia Santosh/Lymph Details: Negative for excessive bruising or bleeding. Physical Exam Vital Signs: Last Vital Signs Temp 97.1 F 01/15/23 08:12 Pulse 82 01/15/23 08:12 BP 116/70 01/15/23 08:12 Pulse Ox 97 01/15/23 08:12 Oxygen Delivery Method Room Air 01/15/23 08:12 BMI result Body Mass Index 28.9 APPEARANCE: Patient in no acute distress EYES no redness, pupils equal and reactive to light, eyelids normal no temporal artery tenderness, redness or swelling. Cervical Spine: Full range of motion without pain; no tenderness. Thoracic Spine:?No tenderness on palpation. Lumbar Spine:? Alignment normal.? Full range of motion without pain, no tenderness. Hands:? LEFT: Normal pain-free range of motion. There is no swelling or tenderness in the MCP or PIP joints. There is some nontender thickening in the palm of the hand consistent with a Dupuytren's contracture but range of motion in the fingers seems to be preserved. There is some minimal nontender bony enlargement at the 2nd and 3rd D IP joints. No thenar atrophy, triggering or sensory loss. ? RIGHT:? Normal pain-free range of motion. There is no MCP swelling or tenderness. There is some slight thickening at the 3rd PIP where she has a little bit of flexion deformity. On the palm of the hand or some nodular thickening of some tissues in the palm consistent with Dupuytren's contractures. These are not tender. There is slight nontender bony enlargement at the 2nd and 3rd PIP joints. There is no sensory loss or thenar atrophy. Wrists:? Normal pain-free range of motion without tenderness, swelling, increased warmth or erythema. Elbows: Normal pain-free range of motion without tenderness, swelling, increased warmth or erythema. Shoulders:?? LEFT: Full range of motion with slight pain at the extremes. There is no adenopathy, tenderness, weakness, swelling, increased warmth or erythema. ? RIGHT: Full range of motion with slight pain. No tenderness, weakness, swelling, increased warmth or erythema. Hips:? Full range of motion without pain. Hip bursa:? No tenderness. Knees:??Right: She lacks about 10 degrees of full extension. There is some slight medial tenderness with no effusion and some mild patellofemoral crepitus. Minimal discomfort with attempts at full extension. No popliteal swelling or tenderness. Left: Normal pain-free range of motion with mild patellofemoral crepitus but no effusion, tenderness, swelling, increased warmth or erythema.? There is no effusion or crepitation Ankles:? Normal pain-free range of motion without tenderness, swelling, increased warmth or erythema. Feet: No tenderness or swelling. Results Reviewed Results Reviewed: Laboratory Tests 01/14/23 08:41 WBC 4.3 L Hct 41.9 ESR 33 H Creatinine 0.72 AST 23 ALT 6 C-Reactive Protein 0.38 [place] [address] XRay Report Signed Patient: Michelle Thapa MR#: [id number] : 1955 Acct:[id number] Age/Sex: 66 / F ADM Date: 11/19/[address]: Carlos Alberto Diaz MD Ordering Physician: Carlos Alberto Diaz MD Date of Service: 11/19/22 Procedure(s): XR knee RT 3V Accession Number(s): [id number] cc: Carlos Alberto Diaz MD~ EXAMINATION: XR KNEE, RIGHT CLINICAL INFORMATION: Polymyalgia rheumatica COMPARISON: None available. TECHNIQUE: Three views of the right knee. FINDINGS: No fracture or joint effusion. Alignment is anatomic. Joint spaces are maintained. There is mild subchondral sclerosis and marginal spurring in the lateral patellofemoral compartment. No bony erosive changes are seen. No abnormal soft tissue calcification. XR/XR knee RT 3V IMPRESSION: Mild osteoarthritis in the patellofemoral compartment. Dictated By: Luc Shah MD [address] [address] XRay Report Signed Patient: Michelle Thapa MR#: [id number] : 1955 Acct:[id number] Age/Sex: 66 / F ADM Date: 11/19/[address]: Carlos Alberto Diaz MD Ordering Physician: Carlos Alberto Diaz MD Date of Service: 11/19/22 Procedure(s): XR hand LT min 3V Accession Number(s): [id number] cc: Carlos Alberto Diaz MD~ EXAMINATION: XR HAND, LEFT CLINICAL INFORMATION: Polymyalgia rheumatica COMPARISON: None available. TECHNIQUE: PA, lateral, and oblique views of the left hand. FINDINGS: Mineralization is normal. There is no fracture or dislocation. There is moderate narrowing of the DIP joints with mild marginal osteophyte consistent with osteoarthritis. The other joint spaces are preserved. No bony erosive changes are seen. There is no soft tissue swelling. XR/XR hand LT min 3V IMPRESSION: Mild osteoarthritis in the distal interphalangeal joints. Dictated By: Luc Shah MD [place] [address] XRay Report Signed Patient: Michelle Thapa MR#: [id number] : 1955 Acct:[id number] Age/Sex: 66 / F ADM Date: 11/19/[address]: Carlos Alberto Diaz MD Ordering Physician: Carlos Alberto Diaz MD Date of Service: 11/19/22 Procedure(s): XR hand RT min 3V Accession Number(s): [id number] cc: Carlos Alberto Diaz MD~ EXAMINATION: XR HAND, RIGHT CLINICAL INFORMATION: Polymyalgia rheumatica COMPARISON: None available. TECHNIQUE: PA, lateral, and oblique views of the right hand. FINDINGS: Mineralization is normal. There is no fracture or dislocation. There is moderate narrowing of the DIP joints with mild marginal osteophyte consistent with osteoarthritis. The other joint spaces are preserved. No bony erosive changes are seen. There is no soft tissue swelling. XR/XR hand RT min 3V IMPRESSION: Mild osteoarthritis in the distal interphalangeal joints. Dictated By: Luc Shah MD Assessment & Plan Assessment & Plan (1) Osteoarthritis of right knee: Code(s): M17.11 - Unilateral primary osteoarthritis, right knee (2) Osteoarthritis of hands, bilateral: Code(s): M19.041 - Primary osteoarthritis, right hand; M19.042 - Primary osteoarthritis, left hand (3) intermediate designer current use of immunosuppressive drug: Code(s): Z79.899 - Other intermediate designer (current) drug therapy (4) Polymyalgia rheumatica: Comment: Prednisone: 2016-November 2021 Leflunomide: 2020 - present started in September 2020 as patient was symptomatic with PMR on 9mg of prednsione daily. Previously had bilateral temporal artery biopsies for GCA which were negative. Has been on prednisone since 2016, then off for 1 month in December with recurrence of pain in bilateral shoulders and hips and elevated inflammatory markers in January 2022. Continues to taper prednisone. Code(s): M35.3 - Polymyalgia rheumatica Plan She has occasional lateral hip pain at night suggesting either bursitis or bienvenido mbar degenerative disease. I do not see any soft tissue swelling in the hands to suggest active synovitis. There is some mild changes of osteoarthritis in the hands and the right knee radiographically. We will stop the prednisone at this point. She will continue with the 10 mg daily leflunomide. We will check lab work again in 2 months and 4 months. She will make an appointment again to return at 4 months Orders: Orders Erythrocyte Sedimentation Rate 1 Month M35.3 - Polymyalgia rheumatica Aspartate Amino Transferase Today M35.3 - Polymyalgia rheumatica, Z79.899 - Other intermediate designer (current) drug therapy C Reactive Protein 1 Month M35.3 - Polymyalgia rheumatica Alanine Aminotransferase Today M35.3 - Polymyalgia rheumatica, Z79.899 - Other intermediate designer (current) drug therapy Complete Blood Count Auto Diff 1 Month M35.3 - Polymyalgia rheumatica, Z79.899 - Other shelter (current) drug therapy Creatinine Today M35.3 - Polymyalgia rheumatica, Z79.899 - Other shelter (current) drug therapy Coding Level of Care Code Est Pt Level 3 (42959) Diagnoses Osteoarthritis of right knee M17.11 Osteoarthritis of hands, bilateral M19.041; M19.042 intermediate designer current use of immunosuppressive drug Z79.899 Polymyalgia rheumatica M35.3
[2023-01-15 08:12] VITALS: BP 116/70; PULSE 82; TEMP 36.2; O2SAT 97; BMI 28.9
== END 2023-01-15 08:47 | disposition home or self-care (01) ==
PROVIDERS: PCP Internal Medicine; Referring Provider Internal Medicine; Visit Provider Internal Medicine Rheumatology
DX: M17.11 Unilateral primary osteoarthritis, right knee (principal); M19.041 Primary osteoarthritis, right hand; M19.042 Primary osteoarthritis, left hand; Z79.899 Other long term (current) drug therapy; M35.3 Polymyalgia rheumatica
CPT/HCPCS: 99213

== ENCOUNTER → 2023-01-15 07:51 | Outpatient (BNVA) | payer OTHER, SELFPAY | PROVIDERS: PCP Internal Medicine; Referring Provider Internal Medicine; Visit Provider Internal Medicine Rheumatology ==

== ENCOUNTER 2023-03-01 10:39 | Outpatient (REF) | payer OTHER, SELFPAY ==
[2023-03-01 10:51] LABS: MANUAL DIFF FLAG NO
[2023-03-01 11:12] LABS: Basophils Percent Auto 0.6 % (0-2); Eosinophils Absolute Auto 0.1 X10*3/uL (0.0-0.4); Eosinophils Percent Auto 1.5 % (0-4); Hematocrit 41.5 % (37.0-47.0); Hemoglobin 13.8 g/dl (12.0-16.0); Imm Gran Abs Auto 0.01 X10*3/uL (0.00-0.03); Imm Gran Pct Auto 0.2 % (0.0-0.4); Lymphocytes Absolute Auto 1.2 X10*3/uL (1.2-4.9); Lymphocytes Percent Auto 25.9 % (20-40); Mean Corpuscular HGB Conc 33.3 g/dl (31.0-35.0); Mean Corpuscular Hemoglobin 30.3 pg (27.0-33.0); Mean Corpuscular Volume 91.2 fL (80.0-98.0); Mean Platelet Volume 10.3 fL (9.4-12.3); Monocytes Absolute Auto 0.4 X10*3/uL (0.1-1.2); Monocytes Percent Auto 8.4 % (2-11); Neutrophils Percent Auto 63.4 % (45-73); Platelet Count 271 X10*3/uL (160-400); Red Blood Count 4.55 X10*6/uL (4.20-5.50); Red Cell Distribution Width 13.1 % (11.0-16.0); White Blood Count 4.8 X10*3/uL (4.8-10.8)
[2023-03-01 11:35] LABS: Alanine Aminotransferase 6 U/L (0-31); Aspartate Amino Transferase 23 U/L (5-31); C Reactive Protein 0.18 mg/dL (< or = 0.50); Estimated Glomerular Filt Rate > 60
[2023-03-01 12:27] LABS: Erythrocyte Sedimentation Rate 29 MM/HR (0-20)
== END 2023-03-01 10:40 | disposition home or self-care (01) ==
LOC: HO.LAB 10:39
PROVIDERS: Visit Provider Internal Medicine Rheumatology
DX: M35.3 Polymyalgia rheumatica (principal); Z79.899 Other long term (current) drug therapy
CPT/HCPCS: 36415; 82565; 84450; 84460; 85025; 85652; 86140

== ENCOUNTER 2023-05-13 14:52 | Outpatient (REF) | payer OTHER, SELFPAY ==
[2023-05-13 15:00] LABS: MANUAL DIFF FLAG NO
[2023-05-13 15:12] LABS: Basophils Percent Auto 0.3 % (0-2); Eosinophils Absolute Auto 0.1 X10*3/uL (0.0-0.4); Eosinophils Percent Auto 1.3 % (0-4); Hematocrit 39.9 % (37.0-47.0); Imm Gran Abs Auto 0.02 X10*3/uL (0.00-0.03); Imm Gran Pct Auto 0.3 % (0.0-0.4); Lymphocytes Absolute Auto 1.7 X10*3/uL (1.2-4.9); Lymphocytes Percent Auto 26.5 % (20-40); Mean Corpuscular HGB Conc 32.6 g/dl (31.0-35.0); Mean Corpuscular Hemoglobin 28.6 pg (27.0-33.0); Mean Corpuscular Volume 87.7 fL (80.0-98.0); Mean Platelet Volume 9.6 fL (9.4-12.3); Monocytes Absolute Auto 0.5 X10*3/uL (0.1-1.2); Monocytes Percent Auto 7.7 % (2-11); Neutrophils Absolute Auto 4.1 x10*3/uL (2.0-8.3); Neutrophils Percent Auto 63.9 % (45-73); Platelet Count 299 X10*3/uL (160-400); Red Blood Count 4.55 X10*6/uL (4.20-5.50); Red Cell Distribution Width 13.8 % (11.0-16.0); White Blood Count 6.4 X10*3/uL (4.8-10.8)
[2023-05-13 15:42] LABS: Alanine Aminotransferase 7 U/L (0-31); Aspartate Amino Transferase 19 U/L (5-31); C Reactive Protein 2.97 mg/dL (< or = 0.50); Estimated Glomerular Filt Rate > 60
[2023-05-13 15:53] LABS: Erythrocyte Sedimentation Rate 63 MM/HR (0-20)
== END 2023-05-13 14:53 | disposition home or self-care (01) ==
LOC: HO.LAB 14:52
PROVIDERS: PCP Internal Medicine; Visit Provider Internal Medicine Rheumatology
DX: M35.3 Polymyalgia rheumatica (principal); Z79.899 Other long term (current) drug therapy
CPT/HCPCS: 36415; 82565; 84450; 84460; 85025; 85652; 86140

== ENCOUNTER 2023-05-26 08:39 | Outpatient (AMB) | payer OTHER, SELFPAY ==
--- NOTE | 2023-05-26 08:46 | MHC.OFFVIS ---
Intake Vital Signs 05/26/23 08:47 Height 5 ft 3 in Weight 161 lb 13.109 oz BMI 28.7 BP 128/90 H Blood Pressure Location Rt brachial Position Sitting Pulse 84 Pulse Source Pulse Oximeter Temp 97.8 F Temp Source Skin Pulse Oximetry (%) 97 Oxygen Delivery Method Room Air Intake Visit Reasons: PMR Intake Note: Patient last seen 01/15/[address] Diaz, presents today for PMR follow up and test results. Refills on Leflunomide requested today. 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 Martinez 67-year-old female return for follow-up her PMR. She remains on leflunomide 10 mg daily and completed prednisone in January 2023. She she reports today that she is feeling increase soreness to thighs and upper arms. She is also reporting that she saw the portal that her ESR and CRP have increased and she is afraid that the PMR is coming back. In late March 2023 she had swelling to her left knee and calf while she was traveling and was treated at [facility] in [facility]. An ultrasound was done to checked for clots but was negative. She also had done an x-ray and was told she had osteoarthritis to the knee. The knee was aspirated and she also received a corticosteroid injection. The patient is not sure if the aspirate was tested. The swelling has resolved and there is no more pain currently. [facility] Medical History (Updated 05/28/23 @ 15:35 by JEROME Chaney-RUBEN) Swelling of right middle finger Seropositive rheumatoid arthritis Constipation Actinic keratosis History of left breast cancer Polymyalgia rheumatica Family History Father Stroke Mother Arthritis COPD (chronic obstructive pulmonary disease) Social History Alcohol intake: current Alcohol intake frequency: a few times a week Alcohol type: wine Patient Tobacco Use Status: Never used Tobacco e-Cigarette/Vaping Use: Never Used Review of Systems Const All systems reviewed & are unremarkable except as noted in HPI and below Physical Exam Vital Signs: Last Vital Signs Temp 97.8 F 05/26/23 08:47 Pulse 84 05/26/23 08:47 BP 128/90 H 05/26/23 08:47 Pulse Ox 97 05/26/23 08:47 Oxygen Delivery Method Room Air 05/26/23 08:47 BMI result Body Mass Index 28.7 APPEARANCE: Patient in no acute distress, nourished, groomed EYES no redness, eyelids normal, no temporal artery tenderness, redness or swelling. HEART:? Regular rhythm, S1-S2 heard, no murmurs, rubs or gallops. LUNG:? Clear to percussion and auscultation Cervical Spine: Full range of motion without pain; no tenderness. Thoracic Spine:?No tenderness on palpation. Lumbar Spine:? Alignment normal.? Full range of motion without pain, no tenderness. Hands:? LEFT: Normal pain-free range of motion. There is no swelling or tenderness in the MCP or PIP joints. There is some nontender thickening in the palm of the hand consistent with a Dupuytren's contracture but range of motion in the fingers seems to be preserved. There is some minimal nontender bony enlargement at the 2nd and 3rd DIP joints. No thenar atrophy, triggering or sensory loss. ? RIGHT:? Normal pain-free range of motion. There is no MCP swelling or tenderness. There is some thickening and synovitis, with tenderness at the 3rd PIP where she has a bit of flexion deformity (mild contracture). On the palm of the hand or some nodular thickening of tissues in the palm consistent with Dupuytren's contractures. These are not tender. There is slight nontender bony enlargement at the 2nd and 3rd PIP joints. There is no sensory loss or thenar atrophy. Wrists:? Normal pain-free range of motion without tenderness, swelling, increased warmth or erythema. Elbows: Normal pain-free range of motion without tenderness, swelling, increased warmth or erythema. Shoulders:?? LEFT: Full range of motion with slight pain at the extremes. There is no adenopathy, tenderness, weakness, swelling, increased warmth or erythema. ? RIGHT: Full range of motion with slight pain. No tenderness, weakness, swelling, increased warmth or erythema. Hips:? Full range of motion without pain. Gets up off the chair with some slowly Hip bursa:? No tenderness. Knees:??Right: She lacks about 10 degrees of full extension. There is some slight medial tenderness with no effusion and some mild patellofemoral crepitus. Minimal discomfort with attempts at full extension. No popliteal swelling or tenderness. Left: Normal pain-free range of motion with mild patellofemoral crepitus but no effusion, tenderness, swelling, increased warmth or erythema.? There is no effusion or crepitation Ankles:? Normal pain-free range of motion without tenderness, swelling, increased warmth or erythema. Feet: No tenderness or swelling. Results Reviewed Results Reviewed: Laboratory Tests 05/13/23 14:59 WBC 6.4 RBC 4.55 Hgb 13.0 Hct 39.9 ESR 63 H Creatinine 0.69 Estimated GFR > 60 AST 19 ALT 7 C-Reactive Protein 2.97 H Patient: Michelle Thapa MR#: [id number] : 1955 Acct:[id number] Age/Sex: 66 / F ADM Date: 11/19/[address]: Carlos Alberto Diaz MD Ordering Physician: Carlos Alberto Diaz MD Date of Service: 11/19/22 Procedure(s): XR knee RT 3V Accession Number(s): [id number] cc: Carlos Alberto Diaz MD~ EXAMINATION: XR KNEE, RIGHT CLINICAL INFORMATION: Polymyalgia rheumatica COMPARISON: None available. TECHNIQUE: Three views of the right knee. FINDINGS: No fracture or joint effusion. Alignment is anatomic. Joint spaces are maintained. There is mild subchondral sclerosis and marginal spurring in the lateral patellofemoral compartment. No bony erosive changes are seen. No abnormal soft tissue calcification. XR/XR knee RT 3V IMPRESSION: Mild osteoarthritis in the patellofemoral compartment. Dictated By: Luc Sahh MD [address] [address] XRay Report SignedPatient: Michelle Thapa MR#: [id number] : 1955 Acct:[id number] Age/Sex: 66 / F ADM Date: 11/19/[address]: Carlos Alberto Diaz MD Ordering Physician: Carlos Alberto Diaz MD Date of Service: 11/19/22 Procedure(s): XR hand LT min 3V Accession Number(s): [id number] cc: Carlos Alberto Diaz MD~ EXAMINATION: XR HAND, LEFT CLINICAL INFORMATION: Polymyalgia rheumatica COMPARISON: None available. TECHNIQUE: PA, lateral, and oblique views of the left hand. FINDINGS: Mineralization is normal. There is no fracture or dislocation. There is moderate narrowing of the DIP joints with mild marginal osteophyte consistent with osteoarthritis. The other joint spaces are preserved. No bony erosive changes are seen. There is no soft tissue swelling. XR/XR hand LT min 3V IMPRESSION: Mild osteoarthritis in the distal interphalangeal joints. Dictated By: Luc Shah MD [place] [id number] XRay Report SignedPatient: Michelle Thapa MR#: [id number] : 1955 Acct:[id number] Age/Sex: 66 / F ADM Date: 11/19/[address]: Carlos Alberto Diaz MD Ordering Physician: Carlos Alberto Diaz MD Date of Service: 11/19/22 Procedure(s): XR hand RT min 3V Accession Number(s): [id number] cc: Carlos Alberto Diaz MD~ EXAMINATION: XR HAND, RIGHT CLINICAL INFORMATION: Polymyalgia rheumatica COMPARISON: None available. TECHNIQUE: PA, lateral, and oblique views of the right hand. FINDINGS: Mineralization is normal. There is no fracture or dislocation. There is moderate narrowing of the DIP joints with mild marginal osteophyte consistent with osteoarthritis. The other joint spaces are preserved. No bony erosive changes are seen. There is no soft tissue swelling. XR/XR hand RT min 3V IMPRESSION: Mild osteoarthritis in the distal interphalangeal joints. 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 Previously had bilateral temporal artery biopsies for GCA which were negative. Has been on prednisone since 2016, then off for 1 month in December with recurrence of pain in bilateral shoulders and hips and elevated inflammatory markers in January 2022. Continues to taper prednisone. Apr 2022 patient has been off Prednisone: Start treating as +CCP RA: Increase LEF to 20mg QD Code(s): M05.9 - Rheumatoid arthritis with rheumatoid factor, unspecified (5) Swelling of right middle finger: Code(s): M79.89 - Other specified soft tissue disorders Plan #SeroPos RA vs PMR: The patient has had return of symptoms plus increased ESR and CRP since last visit December 2022. I think at this time the patient has rheumatoid arthritis and so I will increase her leflunomide 20 mg q.d.. I will also bridge her on a 1 month course of prednisone for the acute treatment of the soreness and swelling while the increase in leflunomide on board. In reviewing the patient's records I came across a positive CCP (168) dated 02/27/2017. Over the years for treatment of her PMR it has been a challenge to taper off prednisone and at 1 point the leflunomide was added back in 2021 when she had return of symptoms at 9 mg of prednisone. If the leflunomide 20 mg is not sufficient to adjust the rheumatoid arthritis we will consider to a bio DMARD such as Actemra. I think Actemra is appropriate given her original PMR-like RA presentation of more shoulder and hip involvement. There is soft tissue swelling to the right 3rd PIP on PE today also indicating active RA. #Alf Use: Continue to monitor CBC, CMP on Leflunomide. Will obtain TB and Hep panel to consider BioDMARD such as Actemra. Patient knows to hold LEF in the event of fevers, infections, surgery or non-healing wound. Follow-up in 4 months Orders: Orders Erythrocyte Sedimentation Rate 05/26/23 M05.9 - Rheumatoid arthritis with rheumatoid factor, unspecified, Z79.899 - Other remote computer terminal operator (current) drug therapy Complete Blood Count Auto Diff 05/26/23 M05.9 - Rheumatoid arthritis with rheumatoid factor, unspecified, Z79.899 - Other remote computer terminal operator (current) drug therapy Cyclic Citrullinated Peptide 05/26/23 M79.89 - Other specified soft tissue disorders C Reactive Protein 05/26/23 M05.9 - Rheumatoid arthritis with rheumatoid factor, unspecified, Z79.899 - Other remote computer terminal operator (current) drug therapy Comprehensive Met. Panel 05/26/23 M05.9 - Rheumatoid arthritis with rheumatoid factor, unspecified, Z79.899 - Other chcf (current) drug therapy Uric Acid 05/26/23 M05.9 - Rheumatoid arthritis with rheumatoid factor, unspecified, Z79.899 - Other chcf (current) drug therapy Rheumatoid Factor 05/26/23 M79.89 - Other specified soft tissue disorders Medications: New leflunomide 20 mg PO DAILY 90 tabs 0RF M05.9 - Rheumatoid arthritis with rheumatoid factor, unspecified prednisone take 4 tablets per day for 7 days take 3 tablets per day for 7 days take 2 tablets per day for 7 days take 1 tablets per day for 7 days 2.5 mg PO DAILY 70 tabs 0RF M05.9 - Rheumatoid arthritis with rheumatoid factor, unspecified Discontinued leflunomide Discontinued Reason: Doctor's Order 10 mg PO DAILY 90 tabs 0RF M35.3 - Polymyalgia rheumatica Coding Level of Care Code Est Pt Level 4 (94824) Diagnoses Primary osteoarthritis of right knee M17.11 Osteoarthritis type: primary Primary osteoarthritis of both hands M19.041; M19.042 Osteoarthritis type: primary 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
[2023-05-26 08:47] VITALS: BP 128/90; PULSE 84; TEMP 36.6; O2SAT 97; BMI 28.7
== END 2023-05-26 09:29 | disposition home or self-care (01) ==
PROVIDERS: PCP Internal Medicine; Visit Provider Nurse Practitioner Family
DX: M05.79 Rheumatoid arthritis with rheumatoid factor of multiple sites without organ or systems involvement (principal); M79.89 Other specified soft tissue disorders; M17.11 Unilateral primary osteoarthritis, right knee; M19.041 Primary osteoarthritis, right hand; M19.042 Primary osteoarthritis, left hand; Z79.899 Other long term (current) drug therapy
CPT/HCPCS: 99214

== ENCOUNTER → 2023-05-26 08:39 | Outpatient (BNVA) | payer OTHER, SELFPAY | PROVIDERS: PCP Internal Medicine; Visit Provider Nurse Practitioner Family ==

== ENCOUNTER 2023-08-21 09:08 | Outpatient (REF) | payer OTHER, SELFPAY ==
[2023-08-21 09:30] LABS: MANUAL DIFF FLAG NO
[2023-08-21 10:47] LABS: Basophils Percent Auto 0.4 % (0-2); Eosinophils Absolute Auto 0.1 X10*3/uL (0.0-0.4); Eosinophils Percent Auto 1.4 % (0-4); Hematocrit 39.8 % (37.0-47.0); Hemoglobin 13.1 g/dl (12.0-16.0); Imm Gran Abs Auto 0.01 X10*3/uL (0.00-0.03); Imm Gran Pct Auto 0.2 % (0.0-0.4); Lymphocytes Absolute Auto 1.2 X10*3/uL (1.2-4.9); Lymphocytes Percent Auto 23.5 % (20-40); Mean Corpuscular HGB Conc 32.9 g/dl (31.0-35.0); Mean Corpuscular Hemoglobin 29.2 pg (27.0-33.0); Mean Corpuscular Volume 88.8 fL (80.0-98.0); Mean Platelet Volume 10.4 fL (9.4-12.3); Monocytes Absolute Auto 0.7 X10*3/uL (0.1-1.2); Monocytes Percent Auto 14.5 % (2-11); Neutrophils Absolute Auto 2.9 x10*3/uL (2.0-8.3); Platelet Count 302 X10*3/uL (160-400); Red Blood Count 4.48 X10*6/uL (4.20-5.50); Red Cell Distribution Width 13.6 % (11.0-16.0); White Blood Count 4.9 X10*3/uL (4.8-10.8)
[2023-08-21 11:10] LABS: Rheumatoid Factor < 13.0 IU/mL (<15.0)
[2023-08-21 11:20] LABS: Erythrocyte Sedimentation Rate 50 MM/HR (0-20)
[2023-08-21 11:31] LABS: Alanine Aminotransferase < 5 U/L (0-31); Albumin Level 3.8 g/dL (3.5-5.0); Alkaline Phosphatase 81 U/L (39-117); Anion Gap 13 (12-20); Aspartate Amino Transferase 19 U/L (5-31); Bilirubin Total 0.4 mg/dL (0.0-1.0); Blood Urea Nitrogen 18 mg/dL (9-16); C Reactive Protein 1.89 mg/dL (< or = 0.50); Calcium 9.7 mg/dL (8.4-10.2); Carbon Dioxide 27 mmol/L (22-29); Chloride 106 mmol/L (96-108); Estimated Glomerular Filt Rate > 60; Glucose Random 84 mg/dL (60-115); Potassium 4.6 mmol/L (3.3-5.1); Sodium 141 mmol/L (135-145); Total Protein 7.3 g/dL (6.5-8.0); Uric Acid 2.7 mg/dL (2.4-5.7)
[2023-08-25 16:33] LABS: Cyclic Citrullinated Peptide 20 UNITS
== END 2023-08-21 09:09 | disposition home or self-care (01) ==
LOC: HO.LAB 09:08
PROVIDERS: PCP Internal Medicine; Visit Provider Nurse Practitioner Family
DX: M05.9 Rheumatoid arthritis with rheumatoid factor, unspecified (principal); Z79.899 Other long term (current) drug therapy; M79.89 Other specified soft tissue disorders
CPT/HCPCS: 36415; 80053; 84550; 85025; 85652; 86140; 86200; 86431

== ENCOUNTER 2023-08-27 08:33 | Outpatient (AMB) | payer OTHER, SELFPAY ==
--- NOTE | 2023-08-27 08:37 | A.OFFVIS_ITS ---
Vital Signs 08/27/23 08:38 Height 5 ft 3 in Weight 161 lb 9.581 oz BMI 28.6 BP 126/80 Blood Pressure Location Rt brachial Position Sitting Pulse 86 Pulse Source Pulse Oximeter Pulse Oximetry (%) 97 Oxygen Delivery Method Room Air Intake Visit Reasons: RA/PMR Leflunomide Intake Note: Patient last seen 05/26/23 by Amber, presents today for RA/PMR follow up and test results. Patient reports Leflunomide. 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 Martinez 67-year-old female return for follow-up her PMR. She remains on leflunomide 10 mg daily and completed prednisone in January 2023. She reports today that she is feeling increase soreness to thighs and upper arms. She is also reporting that she saw on the portal that her ESR and CRP have increased and she is afraid that the PMR is coming back. In late March 2023 she had swelling to her left knee and calf while she was traveling [facility]. An ultrasound was done to checked for clots but was negative. She also had done an x-ray and was told she had osteoarthritis to the knee. The knee was aspirated and she also received a corticosteroid injection. The patient is not sure if the aspirate was tested. The swelling has resolved and there is no more pain currently. 05/26/2023 Ms. Martinez 67-year-old female return for follow-up her PMR. She remains on leflunomide 10 mg daily and completed prednisone in January 2023. She reports today that she is feeling increase soreness to thighs and upper arms. She is also reporting that she saw on the portal that her ESR and CRP have increased and she is afraid that the PMR is coming back. In late March 2023 she had swelling to her left knee and calf while she was traveling and was treated at [facility]. An ultrasound was done to checked for clots but was negative. She also had done an x-ray and was told she had osteoart hritis to the knee. The knee was aspirated and she also received a corticosteroid injection. The patient is not sure if the aspirate was tested. The swelling has resolved and there is no more pain currently. [facility] Medical History (Updated 08/21/23 @ 13:13 by JOSH Chaney) Screening examination for infectious disease Swelling of right middle finger Seropositive rheumatoid arthritis Constipation Actinic keratosis History of left breast cancer Polymyalgia rheumatica Family History Father Stroke Mother Arthritis COPD (chronic obstructive pulmonary disease) Social History Alcohol intake: current Alcohol intake frequency: a few times a week Alcohol type: wine Patient Tobacco Use Status: Never used Tobacco e-Cigarette/Vaping Use: Never Used Review of Systems Const All systems reviewed & are unremarkable except as noted in HPI and below Physical Exam Vital Signs: Last Vital Signs Pulse 86 08/27/23 08:38 BP 126/80 08/27/23 08:38 Pulse Ox 97 08/27/23 08:38 Oxygen Delivery Method Room Air 08/27/23 08:38 BMI result Body Mass Index 28.6 APPEARANCE: Patient in no acute distress, nourished, groomed EYES no redness, eyelids normal, no temporal artery tenderness, redness or swelling. HEART:? Regular rhythm, S1-S2 heard, no murmurs, rubs or gallops. LUNG:? Clear to percussion and auscultation Cervical Spine: Full range of motion without pain; no tenderness. Thoracic Spine:?No tenderness on palpation. Lumbar Spine:? Alignment normal.? Full range of motion without pain, no tenderness. Hands:? LEFT: Normal pain-free range of motion. There is no swelling or tenderness in the MCP or PIP joints. There is some nontender thickening in the palm of the hand consistent with a Dupuytren's contracture but range of motion in the fingers seems to be preserved. There is some minimal nontender bony enlargement at the 2nd and 3rd DIP joints. No thenar atrophy, triggering or sensory loss. ? RIGHT:? Normal pain-free range of motion. There is no MCP swelling or tenderness. There is some thickening and synovitis, with tenderness at the 3rd PIP where she has a bit of flexion deformity (mild contracture). On the palm of the hand or some nodular thickening of tissues in the palm consistent with Dupuytren's contractures. These are not tender. There is slight nontender bony enlargement at the 2nd and 3rd PIP joints. There is no sensory loss or thenar atrophy. Wrists:? Normal pain-free range of motion without tenderness, swelling, increased warmth or erythema. Elbows: Normal pain-free range of motion without tenderness, swelling, increased warmth or erythema. Shoulders:?? LEFT: Full range of motion with slight pain at the extremes. There is no adenopathy, tenderness, weakness, swelling, increased warmth or erythema. ? RIGHT: Full range of motion with slight pain. No tenderness, weakness, swelling, increased warmth or erythema. Hips:? Full range of motion without pain. Gets up off the chair with some slowly Hip bursa:? No tenderness. Knees:??Right: She lacks about 10 degrees of full extension. There is some slight medial tenderness with no effusion and some mild patellofemoral crepitus. Minimal discomfort with attempts at full extension. No popliteal swelling or tenderness. Left: Normal pain-free range of motion with mild patellofemoral crepitus but no effusion, tenderness, swelling, increased warmth or erythema.? There is no effusion or crepitation Ankles:? Normal pain-free range of motion without tenderness, swelling, increased warmth or erythema. Feet: No tenderness or swelling. Results Reviewed Results Reviewed: Laboratory Tests 08/21/23 09:28 ESR 50 H Creatinine 0.67 C-Reactive Protein 1.89 H Cycl Citrul Peptide IgG 20 H Assessment & Plan Assessment & Plan (1) Osteoarthritis of right knee: Code(s): M17.11 - Unilateral primary osteoarthritis, right knee Category: Medical Qualifiers: Osteoarthritis type: primary Qualified Code(s): M17.11 - Unilateral primary osteoarthritis, right knee (2) Osteoarthritis of hands, bilateral: Code(s): M19.041 - Primary osteoarthritis, right hand; M19.042 - Primary osteoarthritis, left hand Category: Medical Qualifiers: Osteoarthritis type: primary Qualified Code(s): M19.041 - Primary osteoarthritis, right hand; M19.042 - Primary osteoarthritis, left hand (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 Previously had bilateral temporal artery biopsies for GCA which were negative. Has been on prednisone since 2016, then off for 1 month in December with recurrence of pain in bilateral shoulders and hips and elevated inflammatory markers in January 2022. Continues to taper prednisone. Apr 2022 patient has been off Prednisone: Start treating as +CCP RA: Increase LEF to 20mg QD Code(s): M05.9 - Rheumatoid arthritis with rheumatoid factor, unspecified Category: Medical (5) Swelling of right middle finger: Code(s): M79.89 - Other specified soft tissue disorders Category: Medical Plan #SeroPos RA vs PMR: The patient has had return of symptoms plus increased ESR and CRP since last visit December 2022. I think at this time the patient has rheumatoid arthritis and so we had increase her leflunomide 20 mg q.d. at 05/26/2023 visit, and bridged her on a one month course of prednisone for the acute treatment of the soreness and swelling while the increase in leflunomide onboards. Today, she reports improvement and there is decrease in the ESR/CRP but they remain elevated. We will continue LEF 20 mg QD for now with the hopes to continue to see a decrease in her ESR/CRP. In addition, there is still mild soft tissue swelling to the right 3rd PIP on PE. Today there is improvement - she can make a fist, hold better to the steering wheel and the soreness has decreased. If the Leflunomide 20 mg is not sufficient to address the rheumatoid arthritis we will consider to a bio DMARD such as Actemra. I think Actemra is appropriate given her original PMR-like RA presentation of more shoulder and hip involvement. I discussed with the patient that if she has ROS like PMR, as she knows it, she should call in and we will treat as PMR and do a taper and stop the LEF. the patient agrees with this plan (Excerpt visit Note 05/25/2022)In reviewing the patient's records I came across a positive CCP (168) dated 02/27/2017. Over the years for treatment of her PMR it has been a challenge to taper off prednisone and at one point the leflunomide was added back in 2021 when she had return of symptoms at 9 mg of prednisone. #Nursing Home Use: Continue to monitor CBC, CMP on Leflunomide. Will obtain TB and Hep panel to consider BioDMARD such as Actemra. Patient knows to hold LEF in the event of fevers, infections, surgery or non-healing wound. Follow-up in 3 months I spent 25 minutes reviewing chart, evaluating patient and documenting Orders: Orders Erythrocyte Sedimentation Rate Today M05.9 - Rheumatoid arthritis with rheumatoid factor, unspecified, Z79.899 - Other long term care administrator (current) drug therapy C Reactive Protein Today M05.9 - Rheumatoid arthritis with rheumatoid factor, unspecified, Z79.899 - Other long term care administrator (current) drug therapy Comprehensive Met. Panel Today M05.9 - Rheumatoid arthritis with rheumatoid factor, unspecified, Z79.899 - Other long term care administrator (current) drug therapy Complete Blood Count Auto Diff Today M05.9 - Rheumatoid arthritis with rheumatoid factor, unspecified, Z79.899 - Other long term care administrator (current) drug therapy Coding Level of Care Code Est Pt Level 3 (10107) Complex EM visit Add On G2211 Diagnoses Primary osteoarthritis of right knee M17.11 Osteoarthritis type: primary Primary osteoarthritis of both hands M19.041; M19.042 Osteoarthritis type: primary long term care administrator current use of immunosuppressive drug Z79.899 Seropositive rheumatoid arthritis M05.9 Swelling of right middle finger M79.89
[2023-08-27 08:38] VITALS: BP 126/80; PULSE 86; O2SAT 97; BMI 28.6
== END 2023-08-27 09:04 | disposition home or self-care (01) ==
PROVIDERS: PCP Internal Medicine; Visit Provider Nurse Practitioner Family
DX: M05.79 Rheumatoid arthritis with rheumatoid factor of multiple sites without organ or systems involvement (principal); M17.11 Unilateral primary osteoarthritis, right knee; M19.041 Primary osteoarthritis, right hand; M19.042 Primary osteoarthritis, left hand; Z79.899 Other long term (current) drug therapy; M79.89 Other specified soft tissue disorders
CPT/HCPCS: 99214; G2211

== ENCOUNTER → 2023-08-27 08:33 | Outpatient (BNVA) | payer OTHER, SELFPAY | PROVIDERS: PCP Internal Medicine; Visit Provider Nurse Practitioner Family ==

== ENCOUNTER 2023-12-29 09:39 | Outpatient (REF) | payer OTHER, SELFPAY ==
[2023-12-29 09:49] LABS: MANUAL DIFF FLAG NO
[2023-12-29 10:13] LABS: Basophils Percent Auto 0.4 % (0-2); Eosinophils Absolute Auto 0.1 X10*3/uL (0.0-0.4); Eosinophils Percent Auto 1.6 % (0-4); Hematocrit 38.3 % (37.0-47.0); Hemoglobin 12.4 g/dl (12.0-16.0); Imm Gran Abs Auto 0.03 X10*3/uL (0.00-0.03); Imm Gran Pct Auto 0.5 % (0.0-0.4); Lymphocytes Absolute Auto 1.2 X10*3/uL (1.2-4.9); Lymphocytes Percent Auto 21.6 % (20-40); Mean Corpuscular HGB Conc 32.4 g/dl (31.0-35.0); Mean Corpuscular Hemoglobin 28.7 pg (27.0-33.0); Mean Corpuscular Volume 88.7 fL (80.0-98.0); Mean Platelet Volume 9.9 fL (9.4-12.3); Monocytes Absolute Auto 0.7 X10*3/uL (0.1-1.2); Monocytes Percent Auto 11.9 % (2-11); Neutrophils Absolute Auto 3.7 x10*3/uL (2.0-8.3); Platelet Count 370 X10*3/uL (160-400); Red Blood Count 4.32 X10*6/uL (4.20-5.50); Red Cell Distribution Width 14.8 % (11.0-16.0); White Blood Count 5.7 X10*3/uL (4.8-10.8)
[2023-12-29 10:44] LABS: Erythrocyte Sedimentation Rate 53 MM/HR (0-20)
[2023-12-29 10:47] LABS: Alanine Aminotransferase 5 U/L (0-31); Albumin Level 3.7 g/dL (3.5-5.0); Alkaline Phosphatase 86 U/L (39-117); Anion Gap 12 (12-20); Aspartate Amino Transferase 18 U/L (5-31); Bilirubin Total 0.6 mg/dL (0.0-1.0); Blood Urea Nitrogen 13 mg/dL (9-16); C Reactive Protein 2.15 mg/dL (< or = 0.50); Calcium 10.7 mg/dL (8.4-10.2); Carbon Dioxide 29 mmol/L (22-29); Chloride 105 mmol/L (96-108); Estimated Glomerular Filt Rate > 60; Glucose Random 81 mg/dL (60-115); Potassium 4.4 mmol/L (3.3-5.1); Sodium 142 mmol/L (135-145); Total Protein 7.1 g/dL (6.5-8.0)
[2023-12-29 11:02] LABS: HBS Num1 0.27 mIU/mL (0-7.99); HBsAGNum1 0.29 S/CO (0.00-0.99); Hepatitis A Antibody IgM 0.28 Index (0-0.79); Hepatitis B Core Antibody Nonreactive (Nonreactive); Hepatitis B Surface Antigen Negative (Negative); ~Hepatitis A Antibody IgM Nonreactive (Nonreactive); ~Hepatitis B Surface Antibody NONREACTIVE (Nonreactive); ~Hepatitis C Antibody Nonreactive (Nonreactive)
[2024-01-01 00:59] LABS: TS Negative Control Passed; TS Panel A 0; TS Panel B 0; TS Positive Control Passed; TSpotTB Negative (Negative)
== END 2023-12-29 09:40 | disposition home or self-care (01) ==
LOC: HO.LAB 09:39
PROVIDERS: PCP Internal Medicine; Visit Provider Student in an Organized Health Care Education/Training Program
DX: Z11.9 Encounter for screening for infectious and parasitic diseases, unspecified (principal); M05.9 Rheumatoid arthritis with rheumatoid factor, unspecified; Z79.899 Other long term (current) drug therapy
CPT/HCPCS: 36415; 80053; 85025; 85652; 86140; 86481; 86704; 86706; 86709; 86803; 87340

== ENCOUNTER 2024-01-21 10:38 | Outpatient (AMB) | payer OTHER, SELFPAY ==
--- NOTE | 2024-01-21 10:42 | A.OFFVIS_ITS ---
Vital Signs 3 01/21/24 10:45 Height 5 ft 3 in Weight 162 lb 7.691 oz BMI 28.8 BP 132/74 Blood Pressure Location Rt brachial Position Sitting Pulse 86 Pulse Source Pulse Oximeter Pulse Oximetry (%) 96 Oxygen Delivery Method Room Air Intake Visit Reasons: RA/PMR Leflunomide/lm Intake Note: Patient presents for RA/PMR Leflunomide. Allergies Taxol Allergy (Severe, Uncoded 08/27/23 08:44) Vomiting Medication List - Last Reconciled 01/21/24 by John Marmolejo MD cholecalciferol (vitamin D3) 25 mcg PO DAILY leflunomide 20 mg PO DAILY multivitamin 1 tab PO DAILY sennosides (senna) 8.6 mg PO DAILY HPI Comments Details: This is a 68-year-old female with seropositive RA/PMR who presents for follow- up. Over the last month , she has been feeling much worse. She has been having more joint pain and stiffness especially of her shoulders, hips, buttocks, knees. She had left knee arthrocentesis followed by injection by a sports medicine physician about 2 months ago with relief but the knee pain and swelling has recurred. It is not as severe. [facility] Medical History Screening examination for infectious disease Swelling of right middle finger Seropositive rheumatoid arthritis Constipation Actinic keratosis History of left breast cancer Polymyalgia rheumatica Family History Father Stroke Mother Arthritis COPD (chronic obstructive pulmonary disease) Social History Alcohol intake: current Alcohol intake frequency: a few times a week Alcohol type: wine Patient Tobacco Use Status: Never used Tobacco e-Cigarette/Vaping Use: Never Used Review of Systems [facility] Reports arthralgias, Reports joint swelling and Reports stiffness Physical Exam Vital Signs: Last Vital Signs Pulse 86 01/21/24 10:45 BP 132/74 01/21/24 10:45 Pulse Ox 96 01/21/24 10:45 Oxygen Delivery Method Room Air 01/21/24 10:45 BMI result Body Mass Index 28.8 Const General: cooperative, healthy appearing and comfortable Nutritional Appearance: overweight Orientation/consciousness: patient oriented x3 Limitations: no limitations HEENT Head: Yes normocephalic and Yes atraumatic Mouth: moist mucous membranes Resp Effort & Inspection: normal respiratory effort and able to speak in complete sentences Auscultation: clear to auscultation bilaterally Cardio Palpation: normal PMI Rate: regular rate Skin General skin exam: no rashes or lesions noted Neuro General: patient oriented x3 Extrem Other: Able to fully abduct both shoulders but she gets shoulder pain with that Positive empty can test and Speed's test on the left Positive lift-off test on the left Very subtle swelling of her right 3rd finger but not tender to palpation Very subtle swelling of left 3rd finger, not tender to palpation No wrist swelling or tenderness bilaterally Bilateral trochanteric bursa area tenderness Left knee swelling warmth and pain with range of motion Assessment & Plan Assessment & Plan (1) Polymyalgia rheumatica: Comment: Initially diagnosed as PMR: Prednisone: 2016-November 2021 for PMR Leflunomide: 2020 - present started in September 2020 as patient was symptomatic with PMR on 9mg of prednsione daily. Previously had bilateral temporal artery biopsies for GCA which were negative. Has been on prednisone since 2016, then off for 1 month in December with recurrence of pain in bilateral shoulders and hips and elevated inflammatory markers in January 2022. Continues to taper prednisone. Apr 2022 patient has been off Prednisone: Start treating as +CCP RA: Increase LEF to 20mg QD Code(s): M35.3 - Polymyalgia rheumatica Category: Medical Plan: This is a 68-year-old female with PMR who presents for follow-up. Patient was initially diagnosed as PMR and was treated with prednisone. Leflunomide was added in 2020. Starting 2022 patient's diagnosis was changed into seropositive RA based on positive CCP antibody. Upon evaluation patient's predominant symptoms are due to PMR, with only minimal peripheral involvement. Her inflammatory markers are significantly elevated. At this time, patient has failed prednisone, leflunomide was only modestly effective, we will need to add DMARDs. Discussed risks and benefits of Kevzara. Patient agreed to proceed. Will start prior authorization for Kevzara Continue with leflunomide 20 mg daily Labs before next visit in 3 months (2) long-term current use of immunosuppressive drug: Code(s): Z79.899 - Other longterm (current) drug therapy Category: Medical Plan: Monitor safety labs for leflunomide Side effects of Kevzara were discussed with the patient in detail including increased risk of infection, diverticulitis, demyelinating disease, reactivation of latent TB, possible increased risk of solid and skin tumors. Patient fully aware. Advised patient to seek medical care TIFFANY if patient has an infection and advised patient to stop the medication until the infection is resolved. Plan I spent 35 minutes reviewing patient's chart, evaluating patient, ordering diagnostic workup, counseling patient and documenting in the chart Orders: Orders 2 Comprehensive Met. Panel 3 Months M35.3 - Polymyalgia rheumatica Erythrocyte Sedimentation Rate 3 Months M35.3 - Polymyalgia rheumatica Complete Blood Count Auto Diff 3 Months M35.3 - Polymyalgia rheumatica C Reactive Protein 3 Months M35.3 - Polymyalgia rheumatica Medications: New 2 Kevzara (sarilumab) 200 mg (1.14 mL) subcut Q2W 2.28 mL 2RF NS Refilled 2 leflunomide 20 mg PO DAILY 90 tabs 0RF M05.9 - Rheumatoid arthritis with rheumatoid factor, unspecified Coding Level of Care Code Est Pt Level 4 (09361) Complex EM visit Add On G2211 Diagnoses Polymyalgia rheumatica M35.3 buttermaker continuous churn current use of immunosuppressive drug Z79.899
[2024-01-21 10:45] VITALS: BP 132/74; PULSE 86; O2SAT 96; BMI 28.8
== END 2024-01-21 11:57 | disposition home or self-care (01) ==
LOC: HO.RHE 10:39
PROVIDERS: PCP Internal Medicine; Visit Provider Student in an Organized Health Care Education/Training Program
DX: M35.3 Polymyalgia rheumatica (principal); Z79.899 Other long term (current) drug therapy
CPT/HCPCS: 99214; G2211

== ENCOUNTER → 2024-01-21 10:38 | Outpatient (BNVA) | payer OTHER, SELFPAY | PROVIDERS: PCP Internal Medicine; Visit Provider Student in an Organized Health Care Education/Training Program ==

== ENCOUNTER 2024-04-19 16:51 | Outpatient (REF) | payer OTHER, SELFPAY ==
[2024-04-19 17:07] LABS: MANUAL DIFF FLAG NO
[2024-04-19 17:58] LABS: Basophils Percent Auto 0.6 % (0-2); Eosinophils Absolute Auto 0.1 X10*3/uL (0.0-0.4); Eosinophils Percent Auto 1.8 % (0-4); Hematocrit 41.1 % (37.0-47.0); Hemoglobin 13.4 g/dl (12.0-16.0); Imm Gran Abs Auto 0.01 X10*3/uL (0.00-0.03); Imm Gran Pct Auto 0.3 % (0.0-0.4); Lymphocytes Absolute Auto 1.4 X10*3/uL (1.2-4.9); Lymphocytes Percent Auto 42.7 % (20-40); Mean Corpuscular HGB Conc 32.6 g/dl (31.0-35.0); Mean Corpuscular Hemoglobin 29.2 pg (27.0-33.0); Mean Corpuscular Volume 89.5 fL (80.0-98.0); Mean Platelet Volume 10.5 fL (9.4-12.3); Monocytes Absolute Auto 0.4 X10*3/uL (0.1-1.2); Monocytes Percent Auto 12.5 % (2-11); Neutrophils Absolute Auto 1.4 x10*3/uL (2.0-8.3); Neutrophils Percent Auto 42.1 % (45-73); Platelet Count 219 X10*3/uL (160-400); Red Blood Count 4.59 X10*6/uL (4.20-5.50); Red Cell Distribution Width 17.7 % (11.0-16.0); White Blood Count 3.3 X10*3/uL (4.8-10.8)
[2024-04-19 18:23] LABS: Alanine Aminotransferase 10 U/L (0-31); Albumin Level 4.2 g/dL (3.5-5.0); Alkaline Phosphatase 52 U/L (39-117); Anion Gap 10 (12-20); Aspartate Amino Transferase 30 U/L (5-31); Bilirubin Total 0.6 mg/dL (0.0-1.0); Blood Urea Nitrogen 18 mg/dL (9-16); C Reactive Protein < 0.04 mg/dL (< or = 0.50); Calcium 9.1 mg/dL (8.4-10.2); Carbon Dioxide 26 mmol/L (22-29); Chloride 109 mmol/L (96-108); Estimated Glomerular Filt Rate > 60; Glucose Random 88 mg/dL (60-115); Potassium 4.4 mmol/L (3.3-5.1); Sodium 141 mmol/L (135-145); Total Protein 7.3 g/dL (6.5-8.0)
[2024-04-19 18:41] LABS: Erythrocyte Sedimentation Rate 3 MM/HR (0-20)
--- OUTSIDE RECORDS SUMMARY | 2024-04-19 20:05 | XMS_ITS | Encounter Summary ---
Author Organization [facility] Address [phone] [facility] [place] [address] Care Team Providers Care Director Of Security Name Role Phone Cady Chino SYRUP MAKER Unavailable Markos Martin MD Unavailable Maddy Kan MD Unavailable [phone] Anabel Evans ESTATE MANAGER Unavailable Lillian Duran MD Unavailable Lis Zhang MD Unavailable Vanessa Pena PAINTER HAND Unavailable [phone] Umair Elizabeth SYRUP MAKER Unavailable Selma Duran MD Unavailable Maddy Kan MD Primary Care Provider Encounter Details Date Type Department Care Team (Late st Contact Info) Description 10/10/2017 Procedure Pass OR Admitting Dept - Virtual Department [address] [place] [address] Social History Tobacco Use Types Packs/Day Years Used Date Smoking Tobacco: Never Smokeless Tobacco: Never Alcohol Use Standard Drinks/Week Comments Yes 7 (1 standard drink = 0.6 oz pur e alcohol) Sex and Gender Information Value Date Recorded Sex Assigned at Female 08/02/2022 9:03 AM EDT Gender Identity Female 08/02/2022 9:03 AM EDT Sexual Orientation Lesbian or Cervantes 08/02/2022 9: 03 AM EDT documented as of this encounter Plan of Treatment Not on file documented as of this encounter Visit Diagnoses Not on filedocumented in this encounter Additional Health Concerns Infection Onset Date Last Indicated Resolved Time CoV-Presumed 08/11/2021 08/11/2021 09/01/2021 1:21 AM EDT documented as of this encounter Care Teams Director Of Security Relationship Specialty Start Date End Date Maddy Kan MD [address] [place] [address], [address] [place] [address] PCP - General Internal Medicine 06/11/17 Cady Chino CNP [address], [address] [place] [address] Historical LMR Provider 01/06/17 03/31/21 Markos Martin MD [address] [place] [address], [address] [place] [address] Historical LMR Provider 01/06/17 03/31/21 Maddy Kan MD [address] [place] [address] Historical LMR Provider 01/06/17 Anabel Evans FNP [address], [address] [place] [address] Historical LMR Provider 01/06/17 03/31/21 Lillian Duran MD [address], [address] [place] [address] Historical LMR Provider 01/06/17 03/31/21 Lis Zhang MD [address] [address] Historical LMR Provider 01/06/17 Vanessa Pena, PAINTER HAND [address] [place] [address] Historical LMR Provider 01/06/17 03/31/21 Umair Elizabeth, SYRUP MAKER [address] [address] Historical LMR Provider 01/06/17 Selma Duran MD [address] [place] [address] [facility], [place] [address] Historical LMR Provider 01/06/17 documented as of this encounter Additional Source Comments The information contained in this document represents components of the legal health record. It is not the complete legal health record.[facility]
--- OUTSIDE RECORDS SUMMARY | 2024-04-19 20:05 | XMS_ITS | Data Portability ---
Author Organization [place] [facility], , [facility] Address [address] [place] [address] Assessment No assessment recorded. Plan of Treatment Reminders Order Date Submit Date Provider Last Modified By Organization Details Last Modified Time Details Appointments None record ed. Lab None record ed. Referral None record ed. Procedures None record ed. Surgeries None record ed. Imaging None record ed. Medication Orders None record ed. Patient TargetsNo targets recorded. Patient InstructionsNo instructions recorded. Reason for Referral None Reported. Results Created Date Observation Date Name Description Value Unit Range Abnormal Flag Note LastModifiedBy Organization Detail LastModifiedTime 07/29/19 07 07/29/2006 CBC WBC 6.6 K/??? L 4.6-10 .2 Not Available [address], [address], 04/17/2008 20:15:01 07/29/19 07 07/29/2006 CBC lymph # 2.3 K/??? L 0.6-3. 4 Not Available [address], [address], 04/17/2008 20:15:01 07/29/19 07 07/29/2006 CBC mid # 0.4 K/??? L 0.0-1. 8 Not Available [address], [address], 04/17/2008 20:15:01 07/29/19 07 07/29/2006 CBC gran # 4.0 K/??? L 2.0-6. 9 Not Available [address], [address], 04/17/2008 20:15:01 07/29/19 07 07/29/2006 CBC lymph % 34.2 % 10.0-5 0.0 Not Available [address], [address], 04/17/2008 20:15:01 07/29/19 07 07/29/2006 CBC mid % 5.4 % 0.1-24 .0 Not Available [address], [address], 04/17/2008 20:15:01 07/29/19 07 07/29/2006 CBC gran % 60.4 % 37.0-8 0.0 Not Available [address], [address], 04/17/2008 20:15:01 07/29/19 07 07/29/2006 CBC RBC 4.60 M/??? L 4.04-5 .48 Not Available [address], [address], 04/17/2008 20:15:01 07/29/19 07 07/29/2006 CBC HGB 14.0 g/dL 12.2-1 6.2 Not Available [address], [address], 04/17/2008 20:15:01 07/29/19 07 07/29/2006 CBC HCT 40.6 % 37.7-4 7.9 Not Available [address], [address], 04/17/2008 20:15:01 07/29/19 07 07/29/2006 CBC MCV 88.2 ???L 80.0-9 7.0 Not Available [address], [address], 04/17/2008 20:15:01 07/29/19 07 07/29/2006 CBC MCH 30.4 pg 27.0-3 1.2 Not Available [address], [address], 04/17/2008 20:15:01 07/29/19 07 07/29/2006 CBC MCHC 34.5 g/dL 31.8-3 5.4 Not Available [address], [address], 04/17/2008 20:15:01 07/29/19 07 07/29/2006 CBC plt 284.0 K/??? L 142.0- 424.0 Not Available [address], [address], 04/17/2008 20:15:01 07/29/19 07 07/29/2006 CBC RDW 13.9 % 11.6-1 4.8 Not Available [address], [address], 04/17/2008 20:15:01 07/29/19 07 07/29/2006 CBC _MPV 0.0 Not Available [address], [address], 04/17/2008 20:15:01 Result Notes None recorded. Problems Name Problem SNOMED Code Status Onset Date Resolution Date Notes Provider Name and Address Organization Details Recorded Time Nervous system symptoms Completed 200302/10/2013 Not Available [facility] 3 02:03:49 Anorectal abscess 62434866 Completed 200402/10/2013 Not Available [facility] 3 02:04:24 Uterine leiomyoma 01232190 Active 2001 Not Available [facility] 3 03:09:34 Cellulitis and abscess of face 678099557 Completed 200002/10/2013 Not Available [facility] 3 02:03:46 Submucous leiomyoma of uterus 07680939 Active 2001 Not Available [facility] 3 03:09:34 Postmenopa usal bleeding 94980095 Active 2001 Not Available [facility] 3 03:09:34 Inflammato ry disorder of breast 957579258 Active 2002 Not Available [facility] 3 03:09:34 Lymphadeno analia 18854392 Completed 200602/10/2013 Not Available [facility] 3 02:03:13 Primary malignant neoplasm of female breast 53460447 Active 2002 Not Available [facility] 3 03:09:34 Insect bite, nonvenomou s, of face 601135100 Active 2000 Not Available [facility] 3 03:09:34 Disorder of intestine 44812021 Active 2007 Not Available [facility] 3 03:09:34 Pure hyperchole sterolemia 427722373 Active 2003 Not Available [facility] 3 03:09:34 Finding by method 488470885 Completed 200202/10/2013 Not Available [facility] 3 02:01:54 Breathing painful 14844380 Completed 200202/10/2013 Not Available [facility] 3 02:02:56 Neoplasm of uncertain behavior of skin 55140236 Completed 200402/10/2013 Not Available [facility] 3 02:01:51 Common cold 82621421 Completed 200202/10/2013 Not Available [facility] 3 02:00:26 Cardiovasc ular system problem 590819926 Active 2006 Not Available [facility] 3 03:09:34 Benign neoplasm of large intestine 78622620 Active 2004 Not Available [facility] 3 03:09:34 Inflamed seborrheic keratosis 549648303 Completed 200002/10/2013 Not Available [facility] 3 02:03:38 Menopausal symptom 41497163 Completed 200302/10/2013 Not Available [facility] 3 02:01:29 Problem Notes None recorded. Procedures Surgical History Date Name Laterality Status Provider Name and Address Organization Details Recorded Time 03/05/20 21 Janice - Colonoscopy completed Dangelo Camacho MD [address] [place] [address], [phone], [facility] 03/05/2021 11:22:33 12/14/19 16 Janice - Colonoscopy completed Dangelo Camacho MD [address] [place] [address], [phone], [facility] 12/14/2015 11:19:57 08/10/19 08 completed Not Available [facility] 06:05:52 08/10/19 08 completed Not Available [facility] 06:05:52 05/04/19 05 Lesion removal colonoscopy completed Not Available [facility] 02/07/2011 06:05:52 Imaging Results None recorded. Procedure Notes None recorded. Medical Equipment None Reported. Allergies Allergen ID Allergen Name Allergen Category Reaction Reaction Severity Criticality Documentation Date Start Date Code Code System Note Provider Name and Address Organization Details Recorded Time 276011 Taxol medicatio n hives Not available Not available 03/05/2021 6 RxNorm Liliya Gonzalez RN [facility], [facility] 10:10:59 Medications Name Sig Start Date Stop Date Status Note LastModified by Organization Details LastModified Time Femara 2.5 mg tablet 007 active Take 1.00 tabs daily Not Available Not Available Not Available Fosamax active Not Available Not Avail able Not Available prednisone active Not Available Not Av ailable Not Available Tylenol active Not Available Not Avail able Not Available leflunomide active Not Available Not A vailable Not Available Vitamin D-3 with Aloe active Not Available Not Available No t Available Vitals None Recorded Social History None recorded. Functional Status None recorded. Mental Status None recorded. Family History Nothing Reported. Medical History No medical history recorded. Gynecological HistoryNo gynecological history recorded. Obstetrics History GPAL:G 0 P 0 0 0 0 Past Encounters Encounter ID Performer Location Encounter Start Date Encounter Closed Date Diagnosis/Indication Diagnosis SNOMED-CT Code Diagnosis ICD10 Code Diagnosis Note [id number] [facility], OFFICE [address] [place] [address] 07/30/2000 16:45:00 04/13/2008 02:02:29 [id number] [facility], OFFICE [address] [place] [address] 12/12/2000 08:30:00 04/13/2008 02:02:29 [id number] [facility], OFFICE [address] [place] [address] 12/25/2000 08:00:00 04/13/2008 02:02:29 [id number] FP, [facility], [address] [place] [address] 09/01/2001 10:15:25 04/13/2008 02:02:29 [id number] Radiology , [facility] [address] [place] [address] 09/04/2001 07:20:07 04/13/2008 02:02:29 [id number] FP, [facility], [address] [place] [address] 06/16/2002 10:50:39 04/13/2008 02:02:29 [id number] Radiology , [facility] [address] [place] [address] 06/16/2002 11:30:59 04/13/2008 02:02:29 [id number] Radiology , [facility] [address] [place] [address] 06/16/2002 00:00:00 04/13/2008 02:02:29 [id number] FP, [facility], [address] [place] [address] 08/12/2002 08:44:07 04/13/2008 02:02:29 [id number] FP, [facility], [address] [place] [address] 12/20/2002 10:02:49 12/21/2002 16:35:21 [id number] FP, [facility], [address] [place] [address] 02/20/2003 09:56:09 02/21/2003 08:07:34 [id number] FP, [facility], [address] [place] [address] 02/23/2003 15:19:09 02/24/2003 10:11:13 [id number] FP, [facility], [address] [place] [address] 02/24/2003 16:50:44 02/25/2003 11:08:10 [id number] FP, [facility], [address] [place] [address] 02/25/2003 14:36:49 02/26/2003 13:20:43 [id number] FP, [facility], [address] [place] [address] 03/01/2003 15:16:50 03/02/2003 11:40:57 [id number] FP, [facility], [address] [place] [address] 03/09/2003 15:07:34 03/10/2003 15:14:05 [id number] FP, [facility], OFFICE [address] [place] [address] 11/23/2003 08:59:28 11/24/2003 08:20:00 [id number] LAB - [facility] [address] [place] [address] 11/23/2003 09:31:17 11/23/2003 09:31:46 [id number] LAB - [facility] [address] [place] [address] 03/02/2004 09:11:11 03/02/2004 09:11:31 [id number] FP, [facility], OFFICE [address] [place] [address] 03/02/2004 08:31:09 03/05/2004 08:57:08 [id number] Radiology , [facility] [address] [place] [address] 03/19/2004 07:50:09 03/20/2004 09:25:00 [id number] [facility], OFFICE [address] [place] [address] 04/20/2004 13:54:37 04/21/2004 11:27:08 [id number] [facility], [facility] [address] [place] [address] 05/04/2004 12:37:15 05/07/2004 16:25:47 [id number] , [facility], OFFICE [address] [facility] [place] [address] 07/25/2004 15:47:57 07/25/2004 17:49:15 [id number] , [facility], OFFICE [address] [place] [address] 06/19/2005 09:00:31 06/20/2005 09:02:43 [id number] Radiology , [facility] [address] [facility] [place] [address] 06/19/2005 09:37:26 04/13/2008 02:02:29 [id number] FP, [facility], OFFICE [address] [facility] [place] [address] 07/28/2006 11:28:43 07/29/2006 09:27:39 [id number] [facility] - [facility] [address] [place] [address] 07/28/2006 12:11:30 07/28/2006 12:11:39 [id number] [facility], [address]ICE [address] [place] [address] 08/11/2006 08:12:10 08/13/2006 12:21:28 [id number] [facility], [address] [address] 08/10/2007 11:19:46 08/11/2007 08:32:25 [id number] Dangelo Camacho MD [facility], [address] [address] 12/14/2015 09:31:50 12/14/2015 12:30:24 [id number] Sandra Lilly RN [facility], [address] [address] 03/05/2021 09:50:27 03/05/2021 12:56:23 Health Concerns Section Related Observation LastModified by Organization Detai ls LastModified Time None Recorded Concern Status LastModified by Organization Details LastModified Time None Recorded Advance Directives Directive None Recorded Payers Encounter Date Sequence Insurance Name Policy Number Policy Kelley Covered Member ID Kelley Member ID Guarantor Name 07/28/2006 1 [facility] [id number] Michelle Thapa [id number] Michelle Thapa 08/11/2006 1 [facility] [id number] Michelle Thapa [id number] 1 Michelle Thapa 08/10/2007 1 [id number] Michelle Thapa [id number] 1 Michelle Thapa 12/14/2015 1 [facility] [id number] Michelle Thapa [id number] Michelle Thapa 03/05/2021 1 [facility] [id number] Michelle Thapa [id number] Michelle Thapa OBGyn Episode No OBEpisode recorded.
--- OUTSIDE RECORDS SUMMARY | 2024-04-19 20:05 | XMS_ITS | Clinical Summary ---
Author Organization [facility] Address [phone] [facility] [place] [address] Care Team Providers Care Sweater Operator Name Role Phone Maddy Kan MD Unavailable [phone] Umair Elizabeth CNP Unavailable [phone] Maddy Kan MD Primary Care Provider Allergies Active Allergy Reactions Criticality Noted Date Comments Paclitaxel Rash Low 08/06/2017 Medications Medication Sig Dispensed Refills Start Date End Date Status multivitamin per tablet Orally Once a day Active Medication-Free Text Senna 374 MG Tablet, Sig: Orally PRN Active cholecalciferol (VITAMIN D3) 1,000 unit tablet Take 1,000 Units by mouth daily. Active calcium carbonate (CALCIUM 500 ORAL) Take by mouth. Ac tive leflunomide (ARAVA) 20 MG tablet Take 1 tablet by mouth every morning. 12/04/2023 Active Hospital, Clinic, or Other Facility Administered Medication Ordered Dose Route Frequency Start Date End Date Status lidocaine (XYLOCAINE) 1% injection 2 mLIndications:Primary localized osteoarthritis of left knee 2 mL Infil Once 03/22/2024 06/20/2024 Active BUPivacaine HCl (MARCAINE) 0.5% injection 2 mLIndications:Primary localized osteoarthritis of left knee 2 mL See Adm Inst Once 03/22/2024 06/20/2024 Active triamcinolone acetonide (KENALOG-40) 40 mg/mL injection 40 mgIndications:Primary localized osteoarthritis of left knee 40 mg IM Once 03/22/2024 06/20/2024 Active Active Problems Problem Noted Date Diagnosed Date Ruptured Bakers cyst 04/02/2023 Assessment & Plan (04/02/2023 1:04 PM EST): Doppler of the left calf neg for DVT but instead revealed a fluid collection in the popliteal fossa measuring 6.4 x 1.7 x 3.9 cm. Fluid dissects into the upper posterior calf. Suspected ruptured popliteal cyst. Known mild OA on the contralateral side but has not had xray imaging of this knee, ordered. Fluid is likely to be gradually re-absorbed, calf already 3cm smaller in circumference compared to last week, less warm and much softer. No current evidence of infection, red flags/ED precautions discussed. At high risk for recurrence of cyst. Will send for orthopedic consult re: ongoing management. Pt is not interested in joint replacement but may benefit from steroid injection or other tx in the future. Continue supportive measures including elevation, compression and rest. F/u PRN. Localized edema 04/02/2023 Assessment & Plan (04/02/2023 12:58 PM EST): LLE edema, only trace edema on other side. No orthopnea, sleeps flat with one firm pillow. No new activity intolerance, discussed overall low suspicion re: heart failure but reasonable to r/o which is pt's preference. Non-urgent echocardiogram ordered. Localized swelling of left lower leg 03/27/2023 Assessment & Plan (04/02/2023 12:56 PM EST): Gradual improvement, u/s neg for DVT. Calf now softer and normal temp. Continue supportive measures. Assessment & Plan (04/02/2023 9:19 AM EST): Significant unilateral LLE edema. Posterior calf warm and firm, not red or bruised. Negative alma's. Discussed risk for DVT, will send for venous doppler r/o. Red flags discussed. Continue supportive measures, rest and elevate leg, ice. F/u if sx worse or no improvement. Polymyalgia rheumatica 08/10/2017 Assessment & Plan (04/02/2023 1:03 PM EST): [place] [facility] [place] most recent note reviewed (01/15/23). Has now tapered off of prednisone without recurrence. Continues on 10mg daily leflunomide. Assessment & Plan (08/08/2022 11:10 PM EDT): She is slowly weaning off prednisone and doing well. Constipation 08/05/2017 History of breast cancer 08/05/2017 History of colon polyps 08/05/2017 Obesity 08/05/2017 Chronic pain of right knee 08/05/2017 Primary osteoarthritis of right knee 08/05/2017 Assessment & Plan (12/25/2023 9:35 PM EDT): Rheumatology is now trying to treat her osteoarthritis. She has not seen any response to leflunomide. She will follow up with rheumatology to discuss. Assessment & Plan (04/02/2023 1:02 PM EST): Historically the right knee has been more problematic, known OA. Had R knee x- ray done through rheumatology. R knee xray 11/19/22: Mild subchondral sclerosis and marginal spurring in the lateral patellofemoral compartment. No bony erosive changes or soft tissue calcification. Resolved Problems Problem Noted Date Diagnosed Date Resolved Date Chronic neck pain 08/05/2017 01/04/2022 Malignant neoplasm of breast 04/25/1999 01/06/2022 Encounters Date Type Department Care Team Description 03/22/2024 8:30 AM EST Office Visit [facility] [address] [place] [address] Selma Duran MD Primary localized osteoarthritis of left knee (Primary Dx); Trochanteric bursitis of left hip; Primary localized osteoarthritis of right knee; Effusion of left knee 02/06/2024 Orders Only [facility] [address] [place] [address] Malika Abel NP 01/19/2024 Orders Only [facility] [address] [place] [address] Provider, MD [place] from Last 3 Months Immunizations Name Administration Dates Next Due Hepatitis A, Adult 05/05/2017 Hepatitis A, ped/adol, 2 dose 07/04/2016 Influenza High-Dose Quadriva lent Preservative Free IM 12/22/2022 Influenza High-Dose Trivalen t Preservative Free IM 11/26/2023,01/11/2019 Influenza Quadrivalent Adjuv anted Preservative Free IM 01/05/2021 Influenza Quadrivalent Preservative Free IM 11/23,12/30/2017 Influenza Recombinant Kaycee valent Preservative Free IM 12/25/2021 Influenza Trivalent Preservative Free IM 017,01/02/2016 Influenza Trivalent w/ Preservative IM 5,01/30/2015,01/10/2014 Pneumococcal conjugate PCV13 09/08/2019,02/28/20 17 Pneumococcal polysaccharide PPSV23 01/15/2021 Td (adult),2 Lf Tetanus Toxo id, PF, Adsorbed 12/24/2023 Tdap 08/18/2013 Typhoid, ViCPs 05/05/2017 Varicella 08/03/2015,03/01/2015 Zoster recombinant 09/08/2019 Family History Medical History Relation Comments No Known Problems Brother Stroke Father Cancer Maternal Grandmother Lung disease Mother ?early COPD, smo ker Osteoarthritis Mother Stroke Paternal Grandmother 70s Relation Status Comments Brother Father Alive Maternal Grandfather Maternal Grandmother Mother Paternal Grandfather Paternal Grandmother Social History Tobacco Use Types Packs/Day Years Used Date Smoking Tobacco: Never Smokeless Tobacco: Never Tobacco Cessation:Counseling Given: Not Answered Alcohol Use Standard Drinks/Week Comments Yes 7 (1 standard drink = 0.6 oz pur e alcohol) Child or Family Care Answer Date Record ed Do you have problems with on e of the following making it difficult for you to work, study, or receive health care? No 12/24/2023 Education Answer Date Recorded Are you interested in more education? Not on kaity e 01/06/2024 Are you concerned about learning? Not on file 01/06/2024 No 01/06/2024 No 01/06/2024 Food Answer Date Recorded Within the past 6 months we worried whether our food would run out before we got money to buy more. Never True 12/24/2023 Within the past 6 months the food we bought just didn't last and we didn't have enough money to get more. Never True Residential Stability Answer Date Recor ded What is your housing situation today? I have [place] 12/24/2023 How many times have you move d in the past 12 months? Zero (I did not move) 12/24/2023 Paying for Meds Answer Date Recorded Do you have trouble paying for medicines? No 12/24/2023 Paying Utility Bills Answer Date Record ed Do you have trouble paying your heating or elect ricity bill? No 12/24/2023 Transportation Answer Date Recorded Has the lack of transportati on kept you from medical appointments or from getting medications? No 12/24/2023 Unemployment Answer Date Recorded Are you currently unemployed or working on a part-time or temporary basis, and looking for work? No 01/03/2022 Digital Access Answer Date Recorded No 12/24/2023 Yes 12/24/2023 Do you have reliable internet access at home? Ye s 12/24/2023 Do you have a device (e.g., phone, tablet, computer) with a working camera? Yes 12/24/2023 Intimate Partner Violence Answer Date R ecorded Denied Basic Needs Not on file 12/24/2023 In the past 12 months have y ou been in a relationship with a person who hurts, threatens, or tries to control you? No 12/24/2023 Worried food would run out Not on file 12/23 In the past 12 months have y ou been in a relationship with a person who hurts, threatens, or tries to control you? No 12/24/2023 Sex and Gender Information Value Date Recorded Sex Assigned at Female 08/02/2022 9:03 AM EDT Gender Identity Female 08/02/2022 9:03 AM EDT Sexual Orientation Lesbian or Cervantes 08/02/2022 9: 03 AM EDT Last Filed Vital Signs Vital Sign Reading Time Taken Comments Blood Pressure 130/90 12/24/2023 11:56 AM EDT Pulse 85 12/24/2023 11:56 AM EDT Temperature 35.9 ??C (96.7 ??F) 12/24/2023 11:56 AM E DT Respiratory Rate 20 01/04/2022 9:16 AM EDT Oxygen Saturation 96% 12/24/2023 11:56 AM EDT Inhaled Oxygen Concentration - - Weight 72 kg (158 lb 12.8 oz) 12/24/2023 11:56 A M EDT Height 158.5 cm (5' 2.4 ) 12/24/2023 11:56 AM ED T Body Mass Index 28.67 12/24/2023 11:56 AM EDT Plan of Treatment Health Maintenance Due Date Last Done Comments HEPATITIS B SCREENING 11/29/1971 COLOGUARD 1998 FIT TEST 1998 FOBT 1998 SIGMOIDOSCOPY 1998 VIRTUAL COLONOSCOPY 1998 RSV VACCINE (1 - Risk 60-74 years 1-dose series) 2013 ZOSTER VACCINES (2 of 2) 11/03/2019 09/08/2019 COLONOSCOPY 03/05/2024 03/05/2021, 11/23, 05/04/2004, Additional history exists COLORECTAL CANCER SCREENING 03/05/2024 DEPRESSION SCREENING 12/23/2024 12/24/2023 MAMMOGRAM 02/05/2026 02/06/2024, 01/22, 11/03/2019, Additional history exists LIPID PANEL 12/23/2028 12/24/2023, 08/22, 09/19/2014 Adult Td,Tdap Booster 12/23/2033 12/24/2023, 014 HEPATITIS A VACCINES Aged Out 05/05/2017, 07/05/19 17 No longer eligible based on patient's age to complete this topic OSTEOPOROSIS SCREENING INITIAL (ONE-TIME) Completed 05/21/2017 PNEUMOCOCCAL VACCINES (50+ years) Completed 01/15/2021, 09/08/2019, 02/27/2017 COVID-19 VACCINE Completed 11/26/2023, 03/2022, 12/25/2021, Additional history exists INFLUENZA VACCINE Completed 11/26/2023, , 12/25/2021, Additional history exists SMOKING STATUS SCREENING (Once After 26 Yrs) Completed 03/22/2024 HEPATITIS B VACCINES Aged Out No long er eligible based on patient's age to complete this topic HIB VACCINES Aged Out No longer eligi ble based on patient's age to complete this topic MENINGOCOCCAL VACCINES (ACWY) Aged Out No longer eligible based on patient's age to complete this topic Medical Devices Not on file Procedures Procedure Name Priority Date/Time Associated Diagnosis Comments HM MAMMOGRAPHY Routine 02/06/2024 2:28 PM EST LIPID PANEL Routine 12/24/2023 12:45 PM EDT Encounter for general adult medical examination with abnormal findings HM COLONOSCOPY FOR RESULT ENTRY ONLY Routine 03/05/2021 BD DXA AXIAL (SPINE) WITH HIP Routine 05/21/2017 8:44 AM EST On corticosteroid therapy from Last 3 Months or Most Recently Relevant to Health Maintenance Results * HM MAMMOGRAPHY FOR RESULT ENTRY ONLY (02/06/2024 2:28 PM EST) Malika Abel NP HEALTH MAINTENANCE * (ABNORMAL) Lipid panel (12/24/2023 12:45 PM EDT) HDL 80 mg/dL [facility] Comment: ? Interpretation <40 mg/dL: Low HDL cholesterol (major risk factor for CHD) Greater than or equal to 60 mg/dL: High HDL cholesterol ( negative risk factor for CHD) HDL - cholesterol is affected by a number of factors, e.g. smoking, excerise, hormones, sex and age. CHOLESTEROL 210 0 - 240 mg/dL [facility] TRIGLYCERIDES 104 30 - 160 mg/dL [facility] LDL 109 50 - 129 mg/dL [facility] Comment: LDL levels in terms of risk for coronary heart disease: <100 mg/dL: Optimal 100-129 mg/dL: Near or above optimal 130-159 mg/dL: Borderline high 160-189 mg/dL: High >190 mg/dL: Very High CARDIAC RISK RATIO 2.6(L) 3.3 - 4.4 C [facility] Blood 12/24/2023 12:4 5 PM EDT 12/24/2023 12:50 PM EDT Maddy Kan MD LAB BLOOD ORDERABLE S [facility] [address] [place] [address] * HM COLONOSCOPY FOR RESULT ENTRY ONLY (03/05/2021) Historical Provider MD WILSON JIMENEZ DXA AXIAL (SPINE) WITH HIP (05/21/2017 8:44 AM EST) Anatomical Region Laterality Modality Bone Density Bone Density 05/21/2017 8:53 AM EST Impressions 05/21/2017 8:57 AM EST Normal bone mineral density at all 3 sites assessed. ?? Statistically significant loss of bone mineral density in the hips since prior exams. ?? Increased bone mineral density in the spine since the baseline exam may be artifactual secondary to progressive endplate sclerotic changes. POS - [id number] Narrative 05/21/2017 8:57 AM EST COMPARISON: 09/22/2013, 03/02/2008 FINDINGS: ??This is a 61-year-old postmenopausal white female with a history of breast cancer. Evaluation of the lumbar spine and hips was performed and felt to be technically adequate. Total bone mineral density in the L1-L4 vertebral bodies was calculated at 1.099 gm/cm2 with a T-score of 0.5 falling within the WHO classification of normal. ??Z-score of ??2.1. ??3.4% increase in bone mineral density since the baseline exam which is statistically significant at the 95% confidence level. ??Progressive endplate sclerotic changes of the prior examination; therefore, the increase in bone mineral density may be artifactual. ??1.8% loss of bone mineral density since the previous exam which is not statistically significant. Total bone mineral density in the right hip was calculated at 0.974 gm/cm2 with a T-score of 0.3 falling within the WHO classification of normal. ??Z-score of 1.4. ??4.3% loss of bone mineral density since the baseline exam and 3.0% loss since the previous exam, both of which are statistically significant at the 95% confidence level. Total bone mineral density in the left hip was calculated at 1.009 gm/cm2 with a T-score of ??0.5 falling within the WHO classification of normal. ??Z-score of ??1.7. ??4.7% loss of bone mineral density since the baseline exam and 3.9% loss since the previous exam, both of which are statistically significant at the 95% confidence level. Procedure Note Pawel Escobar MD - 05/21/2017 COMPARISON: 09/22/2013, 03/02/2008 FINDINGS: This is a 61-year-old postmenopausal white female with ahistory of breast cancer. Evaluation of the lumbar spine and hips was performed and felt to betechnically adequate. Total bone mineral density in the L1-L4 vertebral bodies was calculated at1.099 gm/cm2 with a T-score of 0.5 falling within the WHO classificationof normal. Z- score of 2.1. 3.4% increase in bone mineral density sincethe baseline exam which is statistically significant at the 95% confidencelevel. Progressive endplate sclerotic changes of the prior examination;therefore, the increase in bone mineral density may be artifactual. 1.8%loss of bone mineral density since the previous exam which is notstatistically significant. Total bone mineral density in the right hip was calculated at 0.974 gm/cl5odjj a T-score of 0.3 falling within the WHO classification of normal.Z-score of 1.4. 4.3% loss of bone mineral density since the baseline examand 3.0% loss since the previous exam, both of which are statisticallysignificant at the 95% confidence level. Total bone mineral density in the left hip was calculated at 1.009 gm/ff5vbpu a T-score of 0.5 falling within the WHO classification of normal.Z-score of 1.7. 4.7% loss of bone mineral density since the baselineexam and 3.9% loss since the previous exam, both of which arestatistically significant at the 95% confidence level. IMPRESSION: Normal bone mineral density at all 3 sites assessed. Statistically significant loss of bone mineral density in the hips sinceprior exams. Increased bone mineral density in the spine since the baseline exam may beartifactual secondary to progressive endplate sclerotic changes. POS - [id number] Vanessa L Oilton EDITOR GREETING CARD IMG BD BONE DENSITY DEXA from Last 3 Months or Most Recently Relevant to Health Maintenance Advance Directives * Full Code (Presumed) (Latest Code Status on File) Date Activated Date Inactivated Comments 10/10/2017 8:21 AM 10/10/2017 5:50 PM Care Teams Sweater Operator Relationship Specialty Start Date End Date Maddy Kan MD [address] [place] [id number] PCP - General Internal Medicine 06/11/17 Maddy Kan MD [address] [place] [id number] Historical LMR Provider 01/06/17 Umair Elizabeth CNP [address] [address] Historical LMR Provider 01/06/17 Additional Source Comments The information contained in this document represents components of the legal health record. It is not the complete legal health record.[facility]
--- OUTSIDE RECORDS SUMMARY | 2024-04-19 20:05 | XMS_ITS | Encounter Summary ---
Author Organization [facility] Address [phone] [facility] [place] [address] Care Team Providers Care Business Analytics Specialist Name Role Phone Maddy Kan MD Unavailable [phone] Umair Elizabeth BRANCH SERVICE ASSOCIATE Unavailable [phone] Maddy Kan MD Primary Care Provider [phone] Encounter Details Date Type Department Care Team (Late st Contact Info) Description 04/02/2023 Procedure Pass [facility] [address] [place] [address] Social History Tobacco Use Types Packs/Day Years Used Date Smoking Tobacco: Never Smokeless Tobacco: Never Alcohol Use Standard Drinks/Week Comments Yes 7 (1 standard drink = 0.6 oz pur e alcohol) Child or Family Care Answer Date Record ed Do you have problems with on e of the following making it difficult for you to work, study, or receive health care? No 08/02/2022 Education Answer Date Recorded Are you interested in help w ith more adult education (for example, completing high school, GED, job training, learning the [place] language, technical skills, or developing parenting skills)? No 01/03/2022 Food Answer Date Recorded Within the past 6 months we worried whether our food would run out before we got money to buy more. Never True 08/02/2022 Within the past 6 months the food we bought just didn't last and we didn't have enough money to get more. Never True Residential Stability Answer Date Recor ded What is your housing situation today? [place] have [place] 08/02/2022 How many times have you move d in the past 12 months? Zero (I did not move) 08/02/2022 Paying for Meds Answer Date Recorded Do you have trouble paying for medicines? No 08/02/2022 Paying Utility Bills Answer Date Record ed Do you have trouble paying your heating or elect ricity bill? No 08/02/2022 Transportation Answer Date Recorded Has the lack of transportati on kept you from medical appointments or from getting medications? No 08/02/2022 Unemployment Answer Date Recorded Are you currently unemployed or working on a part-time or temporary basis, and looking for work? No 01/03/2022 Digital Access Answer Date Recorded No 08/02/2022 Yes 08/02/2022 Do you have reliable internet access at home? Ye s 08/02/2022 Do you have a device (e.g., phone, tablet, computer) with a working camera? Yes 08/02/2022 Sex and Gender Information Value Date Recorded Sex Assigned at Female 08/02/2022 9:03 AM EDT Gender Identity Female 08/02/2022 9:03 AM EDT Sexual Orientation Lesbian or Cervantes 08/02/2022 9: 03 AM EDT documented as of this encounter Plan of Treatment Not on file documented as of this encounter Visit Diagnoses Not on filedocumented in this encounter Additional Health Concerns Assessment Noted Time PHQ-2 Depression Total Score: 0 08/03/19 23 9:07 AM EDT documented as of this encounter Care Teams Business Analytics Specialist Relationship Specialty Start Date End Date Maddy Kan MD [address] [place] [id number] PCP - General Internal Medicine 06/11/17 Maddy Kan MD [address] [place] [id number] Historical LMR Provider 01/06/17 Umair Elizabeth CNP [address] [address] [email or web address] Historical LMR Provider 01/06/17 documented as of this encounter Additional Source Comments The information contained in this document represents components of the legal health record. It is not the complete legal health record[facility]
== END 2024-04-19 16:52 | disposition home or self-care (01) ==
LOC: HO.LAB 16:51
PROVIDERS: PCP Internal Medicine; Visit Provider Student in an Organized Health Care Education/Training Program
DX: M35.3 Polymyalgia rheumatica (principal)
CPT/HCPCS: 36415; 80053; 85025; 85652; 86140

== ENCOUNTER 2024-04-22 10:41 | Outpatient (AMB) | payer OTHER, SELFPAY ==
--- NOTE | 2024-04-22 10:44 | A.OFFVIS_ITS ---
Vital Signs 04/22/24 10:48 Height 5 ft 3 in Weight 160 lb 4.417 oz BMI 28.4 BP 132/90 H Blood Pressure Location Rt brachial Position Sitting Pulse 83 Pulse Source Pulse Oximeter Pulse Oximetry (%) 99 Oxygen Delivery Method Room Air Intake Visit Reasons: RA Intake Note: Patient presents for RA. Allergies Taxol Allergy (Severe, Uncoded 08/27/23 08:44) Vomiting Medication List - Last Reconciled 04/22/24 by Celia Weiss MD cholecalciferol (vitamin D3) 25 mcg PO DAILY Kevzara (sarilumab) 200 mg (1.14 mL) subcut Q2W NS leflunomide 20 mg PO DAILY multivitamin 1 tab PO DAILY sennosides (senna) 8.6 mg PO DAILY HPI Comments Details: Patient is a 68-year-old female with seropositive rheumatoid arthritis, polymyalgia rheumatica and polyarticular osteoarthritis (involving hands and knees) who is here today for follow up Interval History: Patient last seen 01/21/[address] Marmolejo. At that time she noted feeling much worse having more joint pain and stiffness involving her shoulders, hips, buttocks and knees. Exam at that time showed swelling of the right 3rd finger and left 3rd finger. Her left knee was also swollen with warmth and pain with range of motion. She was started on Kevzara in addition to her leflunomide Today, Patient reports she feels 100% better. Followed up with Orthopedics in February and received another left knee injection for her osteoarthritis. And states that she is doing better Rheumatologic History: Initially diagnosed with PMR: Prednisone: [id number] Relapse in 2019 Leflunomide (2020 - ): started in September 2020 as patient was symptomatic with PMR on 9mg of prednsione daily. Previously had bilateral temporal artery biopsies for GCA which were negative. Tapered prednisone January patient has been off Prednisone: Start treating as +CCP RA: Increase LEF to 20mg QD Kevzara 12/2023 due to persistent RA and PMR sx. (Now in remission) Current Rheumatology Medication(s): Leflunomide 20 mg daily Kevzara 200 mg SC every 2 weeks [facility] Medical History (Updated 04/22/24 @ 12:19 by Celia Weiss MD) Encounter for monitoring leflunomide therapy Screening examination for infectious disease Swelling of right middle finger Seropositive rheumatoid arthritis Constipation Actinic keratosis History of left breast cancer Polymyalgia rheumatica Family History Father Stroke Mother Arthritis COPD (chronic obstructive pulmonary disease) Social History Alcohol intake: current Alcohol intake frequency: a few times a week Alcohol type: wine Patient Tobacco Use Status: Never used Tobacco e-Cigarette/Vaping Use: Never Used Review of Systems Const Details: Review of Systems Constitutional: Denies fever, chills, weight loss ENT: Denies vision changes, eye pain or eye redness, dental caries, dry mouth GI: Denies nausea, vomiting, diarrhea, abdominal pain, change in BM Pulm: Denies SOB, JARAMILLO, hemoptysis, wheezing Cards: Denies chest pain, palpitations Skin: Denies Raynaud's, rash, nail changes, photosensitivity, HEAD MEN'S GOLF COACH: Denies headaches, weakness, paresthesias, recurrent falls MSK: as per HPI All other systems reviewed and are unremarkable except noted above Physical Exam Vital Signs: Last Vital Signs Pulse 83 04/22/24 10:48 BP 132/90 H 04/22/24 10:48 Pulse Ox 99 04/22/24 10:48 Oxygen Delivery Method Room Air 04/22/24 10:48 BMI result Body Mass Index 28.4 Vital signs reviewed Physical Examination CONSTITUITIONAL Patient alert and cooperative. Well appearing and in no apparent painful distress HEENT Conjunctiva and sclera clear. ?Pupils equal round and reactive to light. ?No lymphadenopathy. ? CHEST/RESPIRATORY SYSTEM Normal respiratory effort and able to speak in complete sentences. ?Clear to auscultation bilaterally. ?No crackles, rales, rhonchi, wheezes heard. CARDIAC SYSTEM Regular rate and rhythm. ?S1 and S2 heard no murmurs. ?Radial pulses intact bilaterally MSK Hands: ?Good elementary science teacher strength bilaterally. No deformities noted. ?No synovitis noted to the MCPs, PIPs or DIPs. ?No tenderness to palpation of these joints. Resolution of the swelling to the bilateral 3rd PIPs Wrists: ?Full range of motion at the wrists without pain. ?No tenderness to palpation or synovitis noted to the wrists. Elbows: Full range of motion without pain. No tenderness, weakness, swelling, increased warmth or erythema. Shoulders: Full range of motion without pain. No tenderness, weakness, swelling, increased warmth or erythema. Hips: Full range of motion without pain. Hip bursa: No tenderness to palpation Knees: ?Full range of motion. ?No tenderness, swelling, increased warmth or erythema.?No effusion or crepitations Ankles: Full range of motion. ?No tenderness, swelling, increased warmth or erythema.? Feet: ?Negative squeeze test. ?No tenderness to palpation or swelling of the MTPs. Tender points:?No tenderness to palpation of the bilateral trapezius, supraspinatus, greater trochanters, anterior costochondral junctions, bilateral gluteal areas, bilateral suboccipital muscle insertions SKIN Skin intact without rashes. Results Reviewed Results Reviewed: Laboratory Tests 08/21/23 12/29/23 04/19/24 09:28 09:48 17:05 WBC 3.3 L RBC 4.59 Hgb 13.4 Hct 41.1 Plt Count 219 D ESR 3 Sodium 141 Potassium 4.4 Chloride 109 H Carbon Dioxide 26 BUN 18 H Creatinine 0.78 Calcium 9.1 D Total Bilirubin 0.6 AST 30 ALT 10 Alkaline Phosphatase 52 C-Reactive Protein < 0.04 Rheumatoid Factor < 13.0 Cycl Citrul Peptide IgG 20 H Hepatitis A IgM Ab Nonreactive Hep Bs Antigen Negative Hep Bs Antibody NONREACTIVE Hep B Core Total Ab Nonreactive Hepatitis C Ab (EIA) Nonreactive TB Test (T-Spot) Com Negative XR Right Knee 10/2022 FINDINGS: No fracture or joint effusion. Alignment is anatomic. Joint spaces are maintained. There is mild subchondral sclerosis and marginal spurring in the lateral patellofemoral compartment. No bony erosive changes are seen. No abnormal soft tissue calcification. XR Bilateral Hands 10/2022 FINDINGS (right hand): Mineralization is normal. There is no fracture or dislocation. There is moderate narrowing of the DIP joints with mild marginal osteophyte consistent with osteoarthritis. The other joint spaces are preserved. No bony erosive changes are seen. There is no soft tissue swelling. FINDINGS (left hand): Mineralization is normal. There is no fracture or dislocation. There is moderate narrowing of the DIP joints with mild marginal osteophyte consistent with osteoarthritis. The other joint spaces are preserved. No bony erosive changes are seen. There is no soft tissue swelling. DEXA 08/2021 INDINGS: AP SPINE L1-L4: Current: BMD 1.264 g/cm2, Z-score 2.1, T-score 0.7, normal, 3.8% increase from baseline (<5% change is not significant). Baseline: BMD 1.218 g/cm2. LEFT FEMUR, NECK: Current: BMD 0.902 g/cm2, Z-score 0.5, T-score -1.0, normal. Baseline: BMD 0.883 g/cm2. LEFT FEMUR, TOTAL: Current: BMD 1.009 g/cm2, Z-score 1.2, T-score 0.0, normal, 4.3% increase from baseline (<5% change is not significant). Baseline: BMD 0.967 g/cm2. Assessment & Plan Assessment & Plan (1) Seropositive rheumatoid arthritis: Comment: -RF, +CCP Leflunomide since 2020 Kevzara since 03/2024 Code(s): M05.9 - Rheumatoid arthritis with rheumatoid factor, unspecified Category: Medical Plan: #Seropositive rheumatoid arthritis Currently in remission Doing well Plan - Leflunomide 20mg daily, plan to decrease to 10mg at next visit if continue to do well - Kevzara 200mg SC every other week - RTC 4 months - Labs prior to visit: CBC, CMP, ESR, CRP, Lipid panel (2) Polymyalgia rheumatica: Comment: Initially diagnosed as PMR: Prednisone: 2016-November 2021 for PMR Leflunomide: 2020 - present started in September 2020 as patient was symptomatic with PMR on 9mg of prednsione daily. Previously had bilateral temporal artery biopsies for GCA which were negative. H as been on prednisone since 2016, then off for 1 month in December with recurrence of pain in bilateral shoulders and hips and elevated inflammatory markers in January 2022. Continues to taper prednisone. Apr 2022 patient has been off Prednisone: Start treating as +CCP RA: Increase LEF to 20mg QD Code(s): M35.3 - Polymyalgia rheumatica Category: Medical Plan: #PMR Currently in remission on Kevzara Off prednisone Plan - Kevzara 200mg SC every other week - Continue Kevzara (3) Screening for osteoporosis: Code(s): Z13.820 - Encounter for screening for osteoporosis Plan: #Osteoporosis screening Patient with a history of prolonged prednisone use Last DEXA scan 08/2021 Due for a repeat Plan - DEXA Scan - Continue Vitamin D - Check Vitamin D levels prior to next visit (4) technician terminal and repeater current use of immunosuppressive drug: Code(s): Z79.899 - Other senior living (current) drug therapy Category: Medical Plan: #Long-term Use of Sarilumab Discussed the risks and benefits of Sarilumab with the management of this patient's rheumatic condition. ? Benefits include decreased pain, improved mortality, improved quality of life Risks include LFT abnormalities, elevated triglycerides, GI perforations Contraindicated in a patient with history of diverticulitis Monitoring: ?CBC, CMP, triglycerides (5) Encounter for monitoring leflunomide therapy: Code(s): Z51.81 - Encounter for therapeutic drug level monitoring; Z79.69 - technician terminal and repeater (current) use of other immunomodulators and immunosuppressants Category: Medical Plan: #Long-term leflunomide Discussed with patient the benefits and risks of leflunomide for managing the rheumatic condition Benefits include: - Reduced pain, maintenance of remission and reduction of flares Risks include: - GI upset especially diarrhea, skin rash, cytopenias, hepatotoxicity, weight loss, neuropathy Monitoring: ?CBC, BMP, LFTs, hepatitis B and C serologies Plan I spent 32 minutes reviewing the record and labs, taking a history, examining the patient, discussing the treatment plan and documenting in the medical record Orders: Orders XR DEXA axial skeleton Today M81.0 - Age-related osteoporosis without current pathological fracture Complete Blood Count Auto Diff 4 Months E55.9 - Vitamin D deficiency, unspecified, M05.9 - Rheumatoid arthritis with rheumatoid factor, unspecified, Z79.899 - Other senior living (current) drug therapy Comprehensive Met. Panel 4 Months E55.9 - Vitamin D deficiency, unspecified, M05.9 - Rheumatoid arthritis with rheumatoid factor, unspecified, Z79.899 - Other senior living (current) drug therapy C Reactive Protein 4 Months E55.9 - Vitamin D deficiency, unspecified, M05.9 - Rheumatoid arthritis with rheumatoid factor, unspecified, Z79.899 - Other intermediate manager (current) drug therapy Lipid Panel 4 Months E55.9 - Vitamin D deficiency, unspecified, M05.9 - Rheumatoid arthritis with rheumatoid factor, unspecified, Z79.899 - Other senior living (current) drug therapy Vitamin D 25-OH (D2 and D3) 4 Months E55.9 - Vitamin D deficiency, unspecified, M05.9 - Rheumatoid arthritis with rheumatoid factor, unspecified, Z79.899 - Other intermediate manager (current) drug therapy Erythrocyte Sedimentation Rate 4 Months E55.9 - Vitamin D deficiency, unspecified, M05.9 - Rheumatoid arthritis with rheumatoid factor, unspecified, Z79.899 - Other intermediate manager (current) drug therapy Medications: New cholecalciferol (vitamin D3) 25 mcg PO DAILY 90 caps 1RF E55.9 - Vitamin D deficiency, unspecified Refilled Kevzara (sarilumab) 200 mg (1.14 mL) subcut Q2W 2 mL 5RF NS M35.3 - Polymyalgia rheumatica leflunomide 20 mg PO DAILY 90 tabs 1RF M05.9 - Rheumatoid arthritis with rheumatoid factor, unspecified Coding Level of Care Code Est Pt Level 4 (00413) Complex EM visit Add On G2211 Diagnoses Seropositive rheumatoid arthritis M05.9 Polymyalgia rheumatica M35.3 Screening for osteoporosis Z13.820 technician terminal and repeater current use of immunosuppressive drug Z79.899 Encounter for monitoring leflunomide therapy Z51.81; Z79.69
[2024-04-22 10:48] VITALS: BP 132/90; PULSE 83; O2SAT 99; BMI 28.4
--- OUTSIDE RECORDS SUMMARY | 2024-04-22 14:25 | XMS_ITS | Data Portability ---
Author Organization [place] - [facility], , [facility] Address [address] [place] [address] Assessment No assessment recorded. Plan of Treatment [...] 6.6 K/??? L 4.6-10 .2 Not Available [address], [address], 04/17/2008 20:15:01 07/29/19 07 07/29/2006 CBC lymph # 2.3 K/??? L 0.6-3. 4 Not Available [address], [address], 04/17/2008 20:15:01 07/29/19 07 07/29/2006 CBC mid # 0.4 K/??? L 0.0-1. 8 Not Available [address], [address], 04/17/2008 20:15:01 07/29/19 07 07/29/2006 CBC gran # 4.0 K/??? L 2.0-6. 9 Not Available [address], [address], 04/17/2008 20:15:01 07/29/19 07 07/29/2006 CBC lymph % 34.2 % 10.0-5 0.0 Not Available [address], [address], 04/17/2008 20:15:01 07/29/19 07 07/29/2006 CBC mid % 5.4 % 0.1-24 .0 Not Available [address], [address], 04/17/2008 20:15:01 07/29/19 07 07/29/2006 CBC gran % 60.4 % 37.0-8 0.0 Not Available [address], [address], 04/17/2008 20:15:01 07/29/19 07 07/29/2006 CBC RBC 4.60 M/??? L 4.04-5 .48 Not Available [address], [address], 04/17/2008 20:15:01 07/29/19 07 07/29/2006 CBC HGB 14.0 g/dL 12.2-1 6.2 Not Available [address], [address], 04/17/2008 20:15:01 07/29/19 07 07/29/2006 CBC HCT 40.6 % 37.7-4 7.9 Not Available [address], [address], 04/17/2008 20:15:01 07/29/19 07 07/29/2006 CBC MCV 88.2 ???L 80.0-9 7.0 Not Available [address], [address], 04/17/2008 20:15:01 07/29/19 07 07/29/2006 CBC MCH 30.4 pg 27.0-3 1.2 Not Available [address], [address], 04/17/2008 20:15:01 07/29/19 07 07/29/2006 CBC MCHC 34.5 g/dL 31.8-3 5.4 Not Available [address], [address], 04/17/2008 20:15:01 07/29/19 07 07/29/2006 CBC plt 284.0 K/??? L 142.0- 424.0 Not Available [address], [address], 04/17/2008 20:15:01 07/29/19 07 07/29/2006 CBC RDW 13.9 % 11.6-1 4.8 Not Available [address], [address], 04/17/2008 20:15:01 07/29/19 07 07/29/2006 CBC _MPV 0.0 Not Available [address], [address], 04/17/2008 20:15:01 Result Notes None recorded. Problems Name Problem SNOMED Code Status Onset Date Resolution Date Notes Provider Name and Address Organization Details Recorded Time Nervous system symptoms Completed 200302/10/2013 Not Available [facility] 3 02:03:49 Anorectal abscess 65091715 Completed 200402/10/2013 Not Available [facility] 3 02:04:24 Uterine leiomyoma 19343749 Active 2001 Not Available [facility] 3 03:09:34 Cellulitis and abscess of face 057232514 Completed 200002/10/2013 Not Available [facility] 3 02:03:46 Submucous leiomyoma of uterus 34575487 Active 2001 Not Available [facility] 3 03:09:34 Postmenopa usal bleeding 76304851 Active 2001 Not Available [facility] 3 03:09:34 Inflammato ry disorder of breast 459565443 Active 2002 Not Available [facility] 3 03:09:34 Lymphadeno analia 98812764 Completed 200602/10/2013 Not Available [facility] 3 02:03:13 Primary malignant neoplasm of female breast 51077906 Active 2002 Not Available [facility] 3 03:09:34 Insect bite, nonvenomou s, of face 782266343 Active 2000 Not Available [facility] 3 03:09:34 Disorder of intestine 07944101 Active 2007 Not Available [facility] 3 03:09:34 Pure hyperchole sterolemia 494957821 Active 2003 Not Available [facility] 3 03:09:34 Finding by method 955811786 Completed 200202/10/2013 Not Available [facility] 3 02:01:54 Breathing painful 62827618 Completed 200202/10/2013 Not Available [facility] 3 02:02:56 Neoplasm of uncertain behavior of skin 66800761 Completed 200402/10/2013 Not Available [facility] 3 02:01:51 Common cold 53314633 Completed 200202/10/2013 Not Available [facility] 3 02:00:26 Cardiovasc ular system problem 125487881 Active 2006 Not Available [facility] 3 03:09:34 Benign neoplasm of large intestine 06627729 Active 2004 Not Available [facility] 3 03:09:34 Inflamed seborrheic keratosis 251368320 Completed 200002/10/2013 Not Available [facility] 3 02:03:38 Menopausal symptom 97254239 Completed 200302/10/2013 Not Available [facility] 3 02:01:29 Problem Notes None recorded. Procedures Surgical History Date Name Laterality Status Provider Name and Address Organization Details Recorded Time 03/05/20 21 Janice - Colonoscopy completed Dangelo Camacho MD [address] [place] [address], [phone], [facility] 03/05/2021 11:22:33 12/14/19 16 Jaince - Colonoscopy completed Dangelo Camacho MD [address] [place] [address], [phone], [facility] 12/14/2015 11:19:57 08/10/19 08 completed Not Available [facility] 06:05:52 08/10/19 08 completed Not Available [facility] 06:05:52 05/04/19 05 Lesion removal colonoscopy completed Not Available [facility] 02/07/2011 06:05:52 Imaging Results None recorded. Procedure Notes None recorded. Medical Equipment None Reported. Allergies Allergen ID Allergen Name Allergen Category Reaction Reaction Severity Criticality Documentation Date Start Date Code Code System Note Provider Name and Address Organization Details Recorded Time 575154 Taxol medicatio n hives Not available Not available 03/05/2021 6 RxNorm Liliya Gonzalez RN [facility], [facility] 10:10:59 Medications Name Sig Start [...] SNOMED-CT Code Diagnosis ICD10 Code Diagnosis Note [id number] [facility], [address] [place] [address] 07/30/2000 16:45:00 04/13/2008 02:02:29 [id number] [facility], [address] [place] [address] 12/12/2000 08:30:00 04/13/2008 02:02:29 [id number] [facility], [address] [place] [address] 12/25/2000 08:00:00 04/13/2008 02:02:29 [id number] FP, [facility], [address] [place] [address] 09/01/2001 10:15:25 04/13/2008 02:02:29 [id number] [place] , [facility] [address] [place] [address] 09/04/2001 07:20:07 04/13/2008 02:02:29 [id number] FP, [facility], [address] [place] [address] 06/16/2002 10:50:39 04/13/2008 02:02:29 [id number] Radiology , [facility] [address] [place] [address] 06/16/2002 11:30:59 04/13/2008 02:02:29 [id number] Radiology , [facility] [address] [place] [address] 06/16/2002 00:00:00 04/13/2008 02:02:29 [id number] FP, [facility], [address] [place] [address] 08/12/2002 08:44:07 04/13/2008 02:02:29 [id number] FP, [facility], [address] [place] [address] 12/20/2002 10:02:49 12/21/2002 16:35:21 [id number] FP, [facility], [address] [place] [address] 02/20/2003 09:56:09 02/21/2003 08:07:34 [id number] FP, [facility], [address] [place] [address] 02/23/2003 15:19:09 02/24/2003 10:11:13 [id number] FP, [facility], [address] [place] [address] 02/24/2003 16:50:44 02/25/2003 11:08:10 [id number] FP, [place], [address] [place] [address] 02/25/2003 14:36:49 02/26/2003 13:20:43 [id number] FP, [place], [address] [place] [address] 03/01/2003 15:16:50 03/02/2003 11:40:57 [id number] FP, [facility], [address] [place] [address] 03/09/2003 15:07:34 03/10/2003 15:14:05 [id number] FP, [facility], OFFICE [address] [address] 11/23/2003 08:59:28 11/24/2003 08:20:00 [id number] LAB - [facility] [address] [place] [address] 11/23/2003 09:31:17 11/23/2003 09:31:46 [id number] LAB - [facility] [address] [place] [address] 03/02/2004 09:11:11 03/02/2004 09:11:31 [id number] FP, [facility], OFFICE [address] [address] 03/02/2004 08:31:09 03/05/2004 08:57:08 [id number] Radiology , [facility] [address] [place] [address] 03/19/2004 07:50:09 03/20/2004 09:25:00 [id number] [facility], OFFICE [address] [place] [address] 04/20/2004 13:54:37 04/21/2004 11:27:08 [id number] [facility], [facility] [address] [place] [address] 05/04/2004 12:37:15 05/07/2004 16:25:47 [id number] , [facility], OFFICE [address] [place] [address] 07/25/2004 15:47:57 07/25/2004 17:49:15 [id number] , [facility], OFFICE [address] [place] [address] 06/19/2005 09:00:31 06/20/2005 09:02:43 [id number] Radiology , [facility] [address] [facility] [place] [address] 06/19/2005 09:37:26 04/13/2008 02:02:29 [id number] FP, [facility], OFFICE [address] [place] [address] 07/28/2006 11:28:43 07/29/2006 09:27:39 [id number] [facility] - [facility] [address] [place] [address] 07/28/2006 12:11:30 07/28/2006 12:11:39 [id number] [facility], [address] [place] [address] 08/11/2006 08:12:10 08/13/2006 12:21:28 [id number] [facility], [address] [address] 08/10/2007 11:19:46 08/11/2007 08:32:25 [id number] Dangelo Camacho MD [facility], [address] [address] 12/14/2015 09:31:50 12/14/2015 12:30:24 [id number] Sandra Lilly RN [facility], [address] [address] 03/05/2021 09:50:27 03/05/2021 12:56:23 Health Concerns Section Related Observation LastModified by Organization Detai ls LastModified Time None Recorded Concern Status LastModified by Organization Details LastModified Time None Recorded Advance Directives Directive None Recorded Payers Encounter Date Sequence Insurance Name Policy Number Policy Kelley Covered Member ID Kelley Member ID Guarantor Name 07/28/2006 1 [facility] [id number] Michelle Thapa [id number] Michelle Thapa 08/11/2006 1 [facility] [id number] Michelle Thapa [id number] Michelle Thapa 08/10/2007 1 [facility] [id number] Michelle Thapa [id number] Michelle Thapa 12/14/2015 1 [facility] [id number] Michelle Thapa [id number] Michelle Thapa 03/05/2021 1 [facility] [id number] Michelle Thapa [id number] Michelle Thapa OBGyn Episode No OBEpisode recorded.
--- OUTSIDE RECORDS SUMMARY | 2024-04-22 14:25 | XMS_ITS | Encounter Summary ---
Author Organization [facility] Address [phone] [facility] [employer] [place] [address] Care Team Providers Care Dedicated Intermodal Truck Driver Name Role Phone Cady Chino SPACE AND MISSILE OPERATIONS Unavailable Markos Martin MD Unavailable [phone] Maddy Kan MD Unavailable Anabel Evans BILLING COORDINATOR Unavailable Lillian Duran MD Unavailable Lis Zhang MD Unavailable Vanessa Pena LINUX SYSTEMS ADMINISTRATOR Unavailable [phone] Umair Elizabeth SPACE AND MISSILE OPERATIONS Unavailable Selma Duran MD Unavailable Maddy Kan MD Primary Care Provider Encounter Details Date Type Department Care Team (Late st Contact Info) Description 10/10/2017 Procedure Pass OR Admitting Dept - Virtual Department [address] [place] [address] Social History Tobacco Use Types Packs/Day Years [...] documented as of this encounter Care Teams Dedicated Intermodal Truck Driver Relationship Specialty Start Date End Date Maddy Kan MD [address] [place] [address], [address] [place] [address] PCP - General Internal Medicine 06/11/17 Cady Chino CNP [address], [address] [place] [address] Historical LMR Provider 01/06/17 03/31/21 Markos Martin MD [address] [place] [address], [address] [place] [address] Historical LMR Provider 01/06/17 03/31/21 Maddy Kan MD [address] [place] [address] Historical LMR Provider 01/06/17 Anabel Evans FNP [address], [address] [place] [address] Historical LMR Provider 01/06/17 03/31/21 Lillian Duran MD [address], [address] [place] [address] Historical LMR Provider 01/06/17 03/31/21 Lis Zhang MD [address] [address] Historical LMR Provider 01/06/17 Vanessa Pena, LINUX SYSTEMS ADMINISTRATOR [address] [place] [address] Historical LMR Provider 01/06/17 03/31/21 Umair Elizabeth, SPACE AND MISSILE OPERATIONS [address] [address] Historical LMR Provider 01/06/17 Selma Duran MD [address] [place] [address] Orthopedics & Sports Medicine, [place] [address] Historical LMR Provider 01/06/17 documented as of this encounter Additional Source Comments The information contained in this document represents components of the legal health record. It is not the complete legal health record.[facility]
--- OUTSIDE RECORDS SUMMARY | 2024-04-22 14:25 | XMS_ITS | Encounter Summary ---
Author Organization [facility] Address [phone] [facility] [place] [address] Care Team Providers Care Cash Shortage Investigator Name Role Phone Maddy Kan MD Unavailable [phone] Umair Elizabeth SEMICONDUCTOR WAFER INSPECTOR Unavailable [phone] Maddy Kan MD Primary Care Provider [phone] Encounter Details Date Type Department Care Team (Late st Contact Info) Description 04/20/2024 Orders Only [facility] Medicine [address] [place] [address] Provider, MD [place] [address] [place] [address] Social History Tobacco Use Types Packs/Day Years [...] on file documented as of this encounter Procedures Procedure Name Priority Date/Time Associated Diagnosis Comments COMPREHENSIVE METABOLIC PANEL Routine 04/20/2024 1:13 PM EST C-REACTIVE PROTEIN Routine 04/20/2024 1: 13 PM EST documented in this encounter Results * Comprehensive metabolic panel (04/20/2024 1:13 PM EST) Historical Provider LAB BLOOD ORDERAB LES * C-Reactive Protein (04/20/2024 1:13 PM EST) Historical Provider LAB BLOOD ORDERAB LES documented in this encounter Visit Diagnoses Not on filedocumented in this encounter Additional Health Concerns Assessment Noted Time PHQ-2 Depression Total Score: 0 12/24/19 24 7:31 AM EDT documented as of this encounter Care Teams Cash Shortage Investigator Relationship Specialty Start Date End Date Maddy Kan MD [address] [place] [address] PCP - General Internal Medicine 06/11/17 Maddy Kan MD [address] [place] [address] Historical LMR Provider 01/06/17 Umair Elizabeth CNP [address] [address] Historical LMR Provider 01/06/17 documented as of this encounter Additional Source Comments The information contained in this document represents components of the legal health record. It is not the complete legal health record.[facility]
--- OUTSIDE RECORDS SUMMARY | 2024-04-22 14:25 | XMS_ITS | Encounter Summary ---
Author Organization [facility] Address [phone] [facility] [place] [address] Care Team Providers Care Paralegal Internship Name Role Phone Maddy Kna MD Unavailable [phone] Umair Elizabeth COMBO WELDER Unavailable [phone] Maddy Kan MD Primary Care Provider [phone] Encounter Details Date Type Department Care Team (Late st Contact Info) Description 04/02/2023 Procedure Pass [facility] [address] [place] [address] Social History Tobacco Use Types Packs/Day Years [...] high school, GED, job training, learning the Russian language, technical skills, or developing parenting skills)? [...] documented as of this encounter Care Teams Paralegal Internship Relationship Specialty Start Date End Date Maddy Kan MD [address] [place] [address] PCP - General Internal Medicine 06/11/17 Maddy Kan MD [address] [place] [address] Historical LMR Provider 01/06/17 Umair Eilzabeth CNP [address] [address] [email or web address] Historical LMR Provider 01/06/17 documented as of this encounter Additional Source Comments The information contained in this document represents components of the legal health record. It is not the complete legal health record.[facility]
--- OUTSIDE RECORDS SUMMARY | 2024-04-22 14:25 | XMS_ITS | Clinical Summary ---
Author Organization [facility] Address [phone] [facility] [place] [address] Care Team Providers Care Residential Insurance Inspector Name Role Phone Maddy Kan MD Unavailable [phone] Umair Elizabeth CNP Unavailable Maddy Kan MD Primary Care Provider Allergies [...] Plan (04/02/2023 1:03 PM EST): Followed by [facility] rheumatology, most recent note reviewed (01/15/23). Has [...] Encounters Date Type Department Care Team Description 04/20/2024 Orders Only [address] [place] [address] ProviderEagle MD 03/22/2024 8:30 AM EST Office Visit [facility] [address] [place] [address] Selma Duran MD Primary localized osteoarthritis of left knee (Primary Dx); Trochanteric bursitis of left hip; Primary localized osteoarthritis of right knee; Effusion of left knee 02/06/2024 Orders Only [address] [place] [address] Malika Abel NP from Last 3 Months Immunizations Name Administration [...] PROTEIN Routine 04/20/2024 1: 13 PM EST HM MAMMOGRAPHY Routine 02/06/2024 2:28 PM EST LIPID PANEL Routine 12/24/2023 12:45 PM EDT Encounter for general adult medical examination with abnormal findings HM COLONOSCOPY FOR RESULT ENTRY ONLY Routine 03/05/2021 BD DXA AXIAL (SPINE) WITH HIP Routine 05/21/2017 8:44 AM EST On corticosteroid therapy from Last 3 Months or Most Recently Relevant to Health Maintenance Results * Comprehensive metabolic panel (04/20/2024 1:13 PM EST) Historical Provider MD LAB BLOOD ORDERAB LES * C-Reactive Protein (04/20/2024 1:13 PM EST) Historical Provider MD LAB BLOOD ORDERAB LES * HM MAMMOGRAPHY FOR RESULT ENTRY ONLY (02/06/2024 2:28 PM EST) Malika Abel NP HEALTH MAINTENANCE * (ABNORMAL) Lipid panel (12/24/2023 12:45 PM EDT) HDL 80 mg/dL [facility] Comment: ? Interpretation <40 mg/dL: Low HDL cholesterol (major risk factor for CHD) Greater than or equal to 60 mg/dL: High HDL cholesterol ( negative risk factor for CHD) HDL - cholesterol is affected by a number of factors, e.g. smoking, excerise, hormones, sex and age. CHOLESTEROL 210 0 - 240 mg/dL [facility] TRIGLYCERIDES 104 30 - 160 mg/dL [facility] LDL 109 50 - 129 mg/dL [facility] Comment: LDL levels in terms of risk for coronary heart disease: <100 mg/dL: Optimal 100-129 mg/dL: Near or above optimal 130-159 mg/dL: Borderline high 160-189 mg/dL: High >190 mg/dL: Very High CARDIAC RISK RATIO 2.6(L) 3.3 - 4.4 C [facility] Blood 12/24/2023 12:4 5 PM EDT 12/24/2023 12:50 PM EDT Maddy Kan MD LAB BLOOD ORDERABLE S [address] [address] * COLONOSCOPY FOR RESULT ENTRY ONLY (03/05/2021) Historical Provider MD WILSON Morin * TONY DXA AXIAL (SPINE) WITH HIP (05/21/2017 8:44 [...] to progressive endplate sclerotic changes. POS - [id number] Narrative 05/21/2017 8:57 AM EST COMPARISON: 09/22/2013, [...] the right hip was calculated at 0.974 gm/wg0icvz a T-score of 0.3 falling within the WHO classification of normal.Z-score of 1.4. 4.3% loss of bone mineral density since the baseline examand 3.0% loss since the previous exam, both of which are statisticallysignificant at the 95% confidence level. Total bone mineral density in the left hip was calculated at 1.009 gm/zn3tyrs a T-score of 0.5 falling within the [...] to progressive endplate sclerotic changes. POS - [id number] Vanessa PARIKH BD BONE DENSITY DEXA from Last 3 Months or Most Recently Relevant to Health Maintenance Advance Directives * Full Code (Presumed) (Latest Code Status on File) Date Activated Date Inactivated Comments 10/10/2017 8:21 AM 10/10/2017 5:50 PM Care Teams Residential Insurance Inspector Relationship Specialty Start Date End Date Maddy Kan MD [address] [place] [address] PCP - General Internal Medicine 06/11/17 Maddy Kan MD [address] [place] [address] Historical LMR Provider 01/06/17 Umair Elizabeth MANAGER FLIGHT [address] [address] Historical LMR Provider 01/06/17 Additional Source Comments The information contained in this document represents components of the legal health record. It is not the complete legal health record.[facility]
== END 2024-04-22 11:15 | disposition home or self-care (01) ==
PROVIDERS: PCP Internal Medicine; Visit Provider Student in an Organized Health Care Education/Training Program
DX: M05.79 Rheumatoid arthritis with rheumatoid factor of multiple sites without organ or systems involvement (principal); M35.3 Polymyalgia rheumatica; Z13.820 Encounter for screening for osteoporosis; Z79.899 Other long term (current) drug therapy; Z51.81 Encounter for therapeutic drug level monitoring; Z79.69 Long term (current) use of other immunomodulators and immunosuppressants
CPT/HCPCS: 99214; G2211

== ENCOUNTER 2024-07-20 08:09 | Outpatient (REF) | payer OTHER, SELFPAY ==
--- NOTE | ~2024-07-20 | MM_ITS ---
EXAMINATION: DXA BONE DENSITY AXIAL HISTORY: M81.0 - Age-related osteoporosis without current pathological fracture TECHNIQUE: [employer] Dual energy absorptiometry (DEXA) of the lumbar spine, total left hip, and femoral neck was performed. COMPARISON: Comparison is made with the prior examination dated 09/11/2021. FINDINGS: The bone mineral density of the lumbar spine is 1.293 with a T-score of 0.9, and a Z-score of 2.4. This is indicative of normal bone mineral density. This represents a BMD change of 2.3% compared to the prior exam. This is statistically significant. The bone mineral density of the left total hip is 1.026 with a T-score of 0.1, and a Z-score of 1.5. This is indicative of normal bone mineral density. This represents a BMD change of 1.7% compared to the prior exam. This is not statistically significant. The bone mineral density of the left femoral neck is 0.940 with a T-score of -0.7, and a Z-score of 0.9. This is indicative of normal bone mineral density. This represents a BMD change of 4.2% compared to the prior exam. FRACTURE RISK: The FRAX index suggests a ten year probability of major osteoporotic fracture of 16.7%, and of hip fracture 1.9%. MM/XR DEXA axial skeleton IMPRESSION: Based on bone mineral density, and according to World Health Organization (WHO) criteria, the diagnosis is consistent with normal bone mineral density. All bone density values are in grams per centimeter squared (g/cm2). Statistically, 68% of repeat scans fall within 1 SD (+/- 0.010 g/cm2 for AP spine L1-L4) and 1 SD (+/- 0.012 g/cm2 for femur total) FRAX is a trademark of the [employer] Met[employer], a World Health Organization (WHO) Collaborating Center. Electronically signed by: Shaun Henry MD 07/21/2024 10:22 AM EDT
--- OUTSIDE RECORDS SUMMARY | 2024-07-20 08:21 | XMS_ITS | Data Portability ---
Author Organization [place] - [facility], , [facility] Address [address] [place] [address] Assessment No assessment recorded. Plan of Treatment [...] LastModifiedTime 07/29/19 07 07/29/2006 CBC WBC 6.6 K/?L 4.6-10 .2 Not Available [address], [address], 04/17/2008 20:15:01 07/29/19 07 07/29/2006 CBC lymph # 2.3 K/?L 0.6-3. 4 Not Available [address], [address], 04/17/2008 20:15:01 07/29/19 07 07/29/2006 CBC mid # 0.4 K/?L 0.0-1. 8 Not Available [address], [address], 04/17/2008 20:15:01 07/29/19 07 07/29/2006 CBC gran # 4.0 K/?L 2.0-6. 9 Not Available [address], [address], 04/17/2008 20:15:01 07/29/19 07 07/29/2006 CBC lymph % 34.2 % 10.0-5 0.0 Not Available [address], [address], 04/17/2008 20:15:01 07/29/19 07 07/29/2006 CBC mid % 5.4 % 0.1-24 .0 Not Available [address], [address], 04/17/2008 20:15:01 07/29/19 07 07/29/2006 CBC gran % 60.4 % 37.0-8 0.0 Not Available [address], [address], 04/17/2008 20:15:01 07/29/19 07 07/29/2006 CBC RBC 4.60 M/?L 4.04-5 .48 Not Available [address], [address], 04/17/2008 20:15:01 07/29/19 07 07/29/2006 CBC HGB 14.0 g/dL 12.2-1 6.2 Not Available [address], [address], 04/17/2008 20:15:01 07/29/19 07 07/29/2006 CBC HCT 40.6 % 37.7-4 7.9 Not Available [address], [address], 04/17/2008 20:15:01 07/29/19 07 07/29/2006 CBC MCV 88.2 ?L 80.0-9 7.0 Not Available [address], [address], 04/17/2008 20:15:01 07/29/19 07 07/29/2006 CBC MCH 30.4 pg 27.0-3 1.2 Not Available [address] [place], [address], 04/17/2008 20:15:01 07/29/19 07 07/29/2006 CBC MCHC 34.5 g/dL 31.8-3 5.4 Not Available [address], [address], 04/17/2008 20:15:01 07/29/19 07 07/29/2006 CBC plt 284.0 K/?L 142.0- 424.0 Not Available [address], [address], 04/17/2008 20:15:01 07/29/19 07 07/29/2006 CBC RDW 13.9 % 11.6-1 4.8 Not Available [address], [address], 04/17/2008 20:15:01 07/29/19 07 07/29/2006 CBC _MPV 0.0 Not Available [address], [address], 04/17/2008 20:15:01 Result Notes None recorded. 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 Active 2001 Not Available [facility] 3 03:09:34 Postmenopa usal bleeding 93008789 Active 2001 Not Available [facility] 3 03:09:34 Inflammato ry disorder of breast 050052416 Active 2002 Not Available [facility] 3 03:09:34 Lymphadeno analia 26536934 Completed 200602/10/2013 Not Available [facility] 3 02:03:13 Primary malignant neoplasm of female breast 16568631 Active 2002 Not Available [facility] 3 03:09:34 Insect bite, nonvenomou s, of face 831475947 Active 2000 Not Available [facility] 3 03:09:34 Disorder of intestine 02887776 Active 2007 Not Available [facility] 3 03:09:34 Pure hyperchole sterolemia 759377367 Active 2003 [facility] Available [facility] 3 03:09:34 Finding by method 863361637 Completed 200202/10/2013 Not Available [facility] 3 02:01:54 Breathing painful 98839913 Completed 200202/10/2013 Not Available [facility] 3 02:02:56 Neoplasm of uncertain behavior of skin 49510039 Completed 200402/10/2013 Not Available [facility] 3 02:01:51 Common cold 41829862 Completed 200202/10/2013 Not Available [facility] 3 02:00:26 Cardiovasc ular system problem 968168474 Active 2006 Not Available [facility] 3 03:09:34 Benign neoplasm of large intestine 28458084 Active 2004 Not Available [facility] 3 03:09:34 Inflamed seborrheic keratosis 504922846 Completed 200002/10/2013 Not Available [facility] 3 02:03:38 Menopausal symptom 49723126 Completed 200302/10/2013 Not Available [facility] 3 02:01:29 Problem Notes None recorded. Procedures Surgical History Date Name Laterality Status Provider Name and Address Organization Details Recorded Time 03/05/20 21 Janice - Colonoscopy completed Dangelo Camacho MD [address] [place] [address], [address], [facility] 03/05/2021 11:22:33 12/14/19 16 Janice - Colonoscopy completed Dangelo Camacho MD [address] [place] [address], [address], [facility] 12/14/2015 11:19:57 08/10/19 08 completed Not Available [facility] 06:05:52 08/10/19 08 completed Not Available [facility] 06:05:52 05/04/19 05 Lesion removal colonoscopy completed Not Available [facility] 02/07/2011 06:05:52 Imaging Results None recorded. Procedure Notes None recorded. Medical Equipment None Reported. Allergies Allergen ID Allergen Name Allergen Category Reaction Reaction Severity Criticality Documentation Date Start Date Code Code System Note Provider Name and Address Organization Details Recorded Time 486484 Taxol medicatio n hives Not available Not available 03/05/2021 6 RxNorm Liliya Gonzalez RN [facility], [facility] 10:10:59 Medications Name Sig Start Date Stop [...] SNOMED-CT Code Diagnosis ICD10 Code Diagnosis Note [id number] [facility], [address]ICE [address] [place] [address] 07/30/2000 16:45:00 04/13/2008 02:02:29 [id number] [facility], [address] [place] [address] 12/12/2000 08:30:00 04/13/2008 02:02:29 [id number] FP, MIC, [address] [place] [address] 12/25/2000 08:00:00 04/13/2008 02:02:29 [id number] FP, [facility], [address] [place] [address] 09/01/2001 10:15:25 04/13/2008 02:02:29 [id number] Radiology , [facility] [address] [place] [address] 09/04/2001 07:20:07 04/13/2008 02:02:29 [id number] FP, [facility], [address] [place] [address] 06/16/2002 10:50:39 04/13/2008 02:02:29 [id number] Radiology , [facility] [address] [place] [address] 06/16/2002 11:30:59 04/13/2008 02:02:29 [id number] Radiology , [facility] [address] [place] [address] 06/16/2002 00:00:00 04/13/2008 02:02:29 [id number] FP, MIC, [address] [place] [address] 08/12/2002 08:44:07 04/13/2008 02:02:29 [id number] FP, MIC, [address] [place] [address] 12/20/2002 10:02:49 12/21/2002 16:35:21 [id number] FP, MIC, [address] [place] [address] 02/20/2003 09:56:09 02/21/2003 08:07:34 [id number] FP, MIC, [address] [place] [address] 02/23/2003 15:19:09 02/24/2003 10:11:13 [id number] FP, MIC, [address] [place] [address] 02/24/2003 16:50:44 02/25/2003 11:08:10 [id number] FP, MIC, [address] [place] [address] 02/25/2003 14:36:49 02/26/2003 13:20:43 [id number] FP, [facility], OFFICE [address] [facility] [address] 03/01/2003 15:16:50 03/02/2003 11:40:57 [id number] , [facility], OFFICE [address] [place] [address] 03/09/2003 15:07:34 03/10/2003 15:14:05 [id number] [facility], OFFICE [address] [place] [address] 11/23/2003 08:59:28 11/24/2003 08:20:00 [id number] LAB - [facility] [address] [place] [address] 11/23/2003 09:31:17 11/23/2003 09:31:46 [id number] LAB - [facility] [address] [facility] Timothy [place] [address] 03/02/2004 09:11:11 03/02/2004 09:11:31 [id number] [facility], [address] [place] [address] 03/02/2004 08:31:09 03/05/2004 08:57:08 [id number] Radiology , [facility] [address] [place] [address] 03/19/2004 07:50:09 03/20/2004 09:25:00 [id number] [facility], [address] [place] [address] 04/20/2004 13:54:37 04/21/2004 11:27:08 [id number] [facility], [facility] [address] [place] [address] 05/04/2004 12:37:15 05/07/2004 16:25:47 [id number] , [facility], [address] [place] [address] 07/25/2004 15:47:57 07/25/2004 17:49:15 [id number] , [facility], [address] [place] [address] 06/19/2005 09:00:31 06/20/2005 09:02:43 [id number] Radiology , [facility] [address] [place] [address] 06/19/2005 09:37:26 04/13/2008 02:02:29 [id number] , [facility], [address] [place] [address] 07/28/2006 11:28:43 07/29/2006 09:27:39 [id number] LAB - [facility] [address] [place] [address] 07/28/2006 12:11:30 07/28/2006 12:11:39 [id number] [facility], [address] [place] [address] 08/11/2006 08:12:10 08/13/2006 12:21:28 [id number] [facility], [address] [address] 08/10/2007 11:19:46 08/11/2007 08:32:25 [id number] Dangelo Camacho MD [facility], [address] [address] 12/14/2015 09:31:50 12/14/2015 12:30:24 [id number] Sandra Lilly RN [facility], [address] [address] 03/05/2021 09:50:27 03/05/2021 12:56:23 Health Concerns Section Related Observation LastModified by Organization Detai ls LastModified Time None Recorded Concern Status LastModified by Organization Details LastModified Time None Recorded Advance Directives Directive None Recorded Payers Encounter Date Sequence Insurance Name Policy Number Policy Kelley Covered Member ID Kelley Member ID Guarantor Name 07/28/2006 1 [id number] Michelle Thapa [id number] Michelle Thapa 08/11/2006 1 [employer] [id number] Michelle Thapa [id number] 1 Michelle Thapa 08/10/2007 1 [employer] [id number] Michelle Thapa [id number] Michelle Thapa 12/14/2015 1 [employer] [id number] Michelle Thapa [id number] Michelle Thapa 03/05/2021 1 [employer] [id number] Michelle Thapa [id number] Michelle Thapa OBGyn Episode No OBEpisode recorded.
== END 2024-07-20 08:10 | disposition home or self-care (01) ==
LOC: HO.MAMMO 08:09
PROVIDERS: PCP Internal Medicine; Visit Provider Student in an Organized Health Care Education/Training Program
DX: M81.0 Age-related osteoporosis without current pathological fracture (principal)
CPT/HCPCS: 77080

== ENCOUNTER → 2024-07-20 08:15 | Outpatient (BNV) | payer OTHER, SELFPAY | PROVIDERS: PCP Internal Medicine; Visit Provider Radiology Diagnostic Radiology | DX: E28.39 Other primary ovarian failure (principal) | CPT/HCPCS: 77080 ==

== ENCOUNTER 2024-08-19 07:28 | Outpatient (AMB) | payer OTHER, SELFPAY ==
--- OUTSIDE RECORDS SUMMARY | 2024-08-19 07:30 | XMS_ITS | Data Portability ---
Author Organization [place] - [facility], , [facility] Address [address] [place] [address] Assessment No assessment recorded. Plan of Treatment [...] WBC 6.6 K/?L 4.6-10 .2 Not Available [address], [address], 04/17/2008 20:15:01 07/29/19 07 07/29/2006 CBC lymph # 2.3 K/?L 0.6-3. 4 Not Available [address], [address], 04/17/2008 20:15:01 07/29/19 07 07/29/2006 CBC mid # 0.4 K/?L 0.0-1. 8 Not Available [address], [address], 04/17/2008 20:15:01 07/29/19 07 07/29/2006 CBC gran # 4.0 K/?L 2.0-6. 9 Not Available [address], [address], 04/17/2008 20:15:01 07/29/19 07 07/29/2006 CBC lymph % 34.2 % 10.0-5 0.0 Not Available [address], [address], 04/17/2008 20:15:01 07/29/19 07 07/29/2006 CBC mid % 5.4 % 0.1-24 .0 Not Available [address], [address], 04/17/2008 20:15:01 07/29/19 07 07/29/2006 CBC gran % 60.4 % 37.0-8 0.0 Not Available [address], [address], 04/17/2008 20:15:01 07/29/19 07 07/29/2006 CBC RBC 4.60 M/?L 4.04-5 .48 Not Available [address], [address], 04/17/2008 20:15:01 07/29/19 07 07/29/2006 CBC HGB 14.0 g/dL 12.2-1 6.2 Not Available [address], [address], 04/17/2008 20:15:01 07/29/19 07 07/29/2006 CBC HCT 40.6 % 37.7-4 7.9 Not Available [address], [address], 04/17/2008 20:15:01 07/29/19 07 07/29/2006 CBC MCV 88.2 ?L 80.0-9 7.0 Not Available [address], [address], 04/17/2008 20:15:01 07/29/19 07 07/29/2006 CBC MCH 30.4 pg 27.0-3 1.2 Not Available [address] [place], [address], 04/17/2008 20:15:01 07/29/19 07 07/29/2006 CBC MCHC 34.5 g/dL 31.8-3 5.4 Not Available [address], [address], 04/17/2008 20:15:01 07/29/19 07 07/29/2006 CBC plt 284.0 K/?L 142.0- 424.0 Not Available [address], [address], 04/17/2008 20:15:01 07/29/19 07 07/29/2006 CBC RDW 13.9 % 11.6-1 4.8 Not Available [address], [address], 04/17/2008 20:15:01 07/29/19 07 07/29/2006 CBC _MPV 0.0 Not Available [address], [address], 04/17/2008 20:15:01 Result Notes None recorded. Problems Name Problem SNOMED Code Status Onset Date Resolution Date Notes Provider Name and Address Organization Details Recorded Time Nervous system symptoms Completed 200302/10/2013 Not Available [facility] 3 02:03:49 Anorectal abscess 39231150 Completed 200402/10/2013 Not Available [facility] 3 02:04:24 Uterine leiomyoma 07048949 Active 2001 Not Available [facility] 3 03:09:34 Cellulitis and abscess of face 490893059 Completed 200002/10/2013 Not Available [facility] 3 02:03:46 Submucous leiomyoma of uterus 61729602 Active 2001 Not Available [facility] 3 03:09:34 Postmenopa usal bleeding 23555092 Active 2001 Not Available [facility] 3 03:09:34 Inflammato ry disorder of breast 294084734 Active 2002 Not Available [facility] 3 03:09:34 Lymphadeno analia 41982760 Completed 200602/10/2013 Not Available [facility] 3 02:03:13 Primary malignant neoplasm of female breast 47099904 Active 2002 Not Available [facility] 3 03:09:34 Insect bite, nonvenomou s, of face 722906212 Active 2000 Not Available [facility] 3 03:09:34 Disorder of intestine 95580472 Active 2007 Not Available [facility] 3 03:09:34 Pure hyperchole sterolemia 225285693 Active 2003 Not Available [facility] 3 03:09:34 Finding by method 261808652 Completed 200202/10/2013 Not Available [facility] 3 02:01:54 Breathing painful 45996016 Completed 200202/10/2013 Not Available [facility] 3 02:02:56 Neoplasm of uncertain behavior of skin 49164835 Completed 200402/10/2013 Not Available [facility] 3 02:01:51 Common cold 55260032 Completed 200202/10/2013 Not Available [facility] 3 02:00:26 Cardiovasc ular system problem 761650458 Active 2006 Not Available [facility] 3 03:09:34 Benign neoplasm of large intestine 88145891 Active 2004 Not Available [facility] 3 03:09:34 Inflamed seborrheic keratosis 157392282 Completed 200002/10/2013 Not Available [facility] 3 02:03:38 Menopausal symptom 02630619 Completed 200302/10/2013 Not Available [facility] 3 02:01:29 Problem Notes None recorded. Procedures Surgical History Date Name Laterality Status Provider Name and Address Organization Details Recorded Time 03/05/20 21 Janice - Colonoscopy completed Dangelo Camacho MD [address] [place] [address], [phone], [facility] 03/05/2021 11:22:33 12/14/19 16 Janice - Colonoscopy completed Dangelo Camacho MD [address] [place] [address], [phone], [facility] 12/14/2015 11:19:57 08/10/19 08 completed Not Available [facility] 06:05:52 08/10/19 08 completed Not Available [facility] 06:05:52 05/04/19 05 Lesion removal colonoscopy completed Not Available [facility] 02/07/2011 06:05:52 Imaging Results None recorded. Procedure Notes None recorded. Medical Equipment None Reported. Allergies Allergen ID Allergen Name Allergen Category Reaction Reaction Severity Criticality Documentation Date Start Date Code Code System Note Provider Name and Address Organization Details Recorded Time 935830 Taxol medicatio n hives Not available Not available 03/05/2021 6 RxNorm Liliya Gonzalez RN [facility], [facility] 10:10:59 Medications Name Sig Start [...] SNOMED-CT Code Diagnosis ICD10 Code Diagnosis Note [id number] Yazan Bergeron. , [facility], [address] [place] [address] 07/30/2000 16:45:00 04/13/2008 02:02:29 [id number] Taya Camarillo MD , [facility], [address] [place] [address] 12/12/2000 08:30:00 04/13/2008 02:02:29 [id number] Taya Camarillo MD , [facility], [address] [place] [address] 12/25/2000 08:00:00 04/13/2008 02:02:29 [id number] Taya Camarillo MD , [facility], [address] [place] [address] 09/01/2001 10:15:25 04/13/2008 02:02:29 [id number] [facility] , [facility] [address] [place] [address] 09/04/2001 07:20:07 04/13/2008 02:02:29 [id number] Taya Camarillo MD , [facility], [address] [place] [address] 06/16/2002 10:50:39 04/13/2008 02:02:29 [id number] [facility] RADIOLOGY [employer] [facility] , [facility] [address] [place] [address] 06/16/2002 11:30:59 04/13/2008 02:02:29 [id number] [facility] RADIOLOGY [employer] [facility] , [facility] [address] [place] [address] 06/16/2002 00:00:00 04/13/2008 02:02:29 [id number] Molina Amado MD , [facility], [address] [place] [address] 08/12/2002 08:44:07 04/13/2008 02:02:29 [id number] MD EMA Villanueva, [facility], [address] [place] [address] 12/20/2002 10:02:49 12/21/2002 16:35:21 [id number] MD EMA Ferguson, [facility], [address] [place] [address] 02/20/2003 09:56:09 02/21/2003 08:07:34 [id number] MD EMA Villanueva, [facility], [address] [place] [address] 02/23/2003 15:19:09 02/24/2003 10:11:13 [id number] FP TREATMENT NURSE [facility], [facility], [address] [place] [address] 02/24/2003 16:50:44 02/25/2003 11:08:10 [id number] Taya Camarillo MD , [facility], [address] [place] [address] 02/25/2003 14:36:49 02/26/2003 13:20:43 [id number] Taya Camarillo MD , [facility], [address] [place] [address] 03/01/2003 15:16:50 03/02/2003 11:40:57 [id number] Taya Camarillo MD , [facility], [address] [place] [address] 03/09/2003 15:07:34 03/10/2003 15:14:05 [id number] TREATMENT NURSE [facility], [facility], [address] [place] [address] 11/23/2003 08:59:28 11/24/2003 08:20:00 [id number] [facility] - [address] [address] 11/23/2003 09:31:17 11/23/2003 09:31:46 [id number] [facility] - [facility] [address] [place] [address] 03/02/2004 09:11:11 03/02/2004 09:11:31 [id number] Taya Camarillo MD , [facility], [address] [place] [address] 03/02/2004 08:31:09 03/05/2004 08:57:08 [id number] [facility] BONE DENSITY TECH Radiology , [facility] [address] [place] [address] 03/19/2004 07:50:09 03/20/2004 09:25:00 [id number] Taya Camarillo MD , [facility], [address] [place] [address] 04/20/2004 13:54:37 04/21/2004 11:27:08 [id number] [facility], RIZWAN YUNG MD ASP, [address] [address] 05/04/2004 12:37:15 05/07/2004 16:25:47 [id number] GRIFFIN Kan, [facility], [address] [place] [address] 07/25/2004 15:47:57 07/25/2004 17:49:15 [id number] Taya Camarillo MD , [facility], [address] [place] [address] 06/19/2005 09:00:31 06/20/2005 09:02:43 [id number] [facility] RADIOLOGY Technolog[facility] st Radiology , [facility] [address] [place] [address] 06/19/2005 09:37:26 04/13/2008 02:02:29 [id number] Taya Camarillo MD , [facility], [address] [place] [address] 07/28/2006 11:28:43 07/29/2006 09:27:39 [id number] [facility] - [facility] [address] [place] [address] 07/28/2006 12:11:30 07/28/2006 12:11:39 [id number] Taya Camarillo MD , [facility], [address] [place] [address] 08/11/2006 08:12:10 08/13/2006 12:21:28 [id number] [facility], RIZWAN YUNG MD [facility], [address] [address] 08/10/2007 11:19:46 08/11/2007 08:32:25 [id number] Dangelo Camacho MD [facility], [address] [address] 12/14/2015 09:31:50 12/14/2015 12:30:24 [id number] Dangelo Camacho MD [facility], [address] [address] 03/05/2021 09:50:27 03/05/2021 12:56:23 Health Concerns Section Related Observation LastModified by Organization Detai ls LastModified Time None Recorded Concern Status LastModified by Organization Details LastModified Time None Recorded Advance Directives Directive None Recorded Payers Encounter Date Sequence Insurance Name Policy Number Policy Kelley Covered Member ID Kelley Member ID Guarantor Name 07/28/2006 1 [facility] [id number] 1 Michelle Thapa 08/11/2006 1 [facility] Michelle Baugher [id number] 1 Michelle Elier 08/10/[address] [facility] [id number] Michelle Elier [id number] 1 Michelle Elier 12/14/2015 1 [facility] [id number] Michelle Elier [id number] Michelle Elier 03/05/2021 1 [facility] [id number] Michelle Elier [id number] 1 Michelle Thapa OBGyn Episode No OBEpisode recorded.
--- NOTE | 2024-08-19 07:33 | A.OFFVIS_ITS ---
Vital Signs 08/19/24 07:38 Height 5 ft 3 in Weight 165 lb 9.074 oz BMI 29.3 BP 130/80 Blood Pressure Location Rt brachial Position Sitting Pulse 79 Pulse Source Pulse Oximeter Pulse Oximetry (%) 96 Oxygen Delivery Method Room Air Intake Visit Reasons: RA Intake Note: Patient presents for RA follow up. Allergies Taxol Allergy (Severe, Uncoded 08/27/23 08:44) Vomiting Medication List - Last Reconciled 08/19/24 by Celia Weiss MD cholecalciferol (vitamin D3) 25 mcg PO DAILY Kevzara (sarilumab) 200 mg (1.14 mL) subcut Q2W NS leflunomide 20 mg PO DAILY multivitamin 1 tab PO DAILY sennosides (senna) 8.6 mg PO DAILY HPI Comments Details: Patient is a 68-year-old female with seropositive rheumatoid arthritis, polymyalgia rheumatica and polyarticular osteoarthritis (involving hands and knees) who is here today for follow up Interval History: Patient last seen 04/22/24 with me. At that time she was on Kevzara and leflunomide experiencing much better results in terms of her joint pain. Today, Patient continues to feel well on her current therapies Rheumatologic History: Initially diagnosed with PMR: Prednisone: [id number] Relapse in 2019 Leflunomide (2020 - ): started in September 2020 as patient was symptomatic with PMR on 9mg of prednsione daily. Previously had bilateral temporal artery biopsies for GCA which were negative. Tapered prednisone January patient has been off Prednisone: Start treating as +CCP RA: Increase LEF to 20mg QD Kevzara 12/2023 due to persistent RA and PMR sx. (Now in remission) Current Rheumatology Medication(s): Leflunomide 20 mg daily Kevzara 200 mg SC every 2 weeks [facility] Medical History (Updated 04/22/24 @ 12:19 by Celia Weiss MD) Encounter for monitoring leflunomide therapy Screening examination for infectious disease Swelling of right middle finger Seropositive rheumatoid arthritis Constipation Actinic keratosis History of left breast cancer Polymyalgia rheumatica Family History Father Stroke Mother Arthritis COPD (chronic obstructive pulmonary disease) Social History (Updated 08/19/24 @ 07:38 by DAYLIN Mcgarry) Household Members: None Housing: House Alcohol intake: current Alcohol intake frequency: a few times a week Alcohol type: wine Patient Tobacco Use Status: Never used Tobacco e-Cigarette/Vaping Use: Never Used Review of Systems Const Details: Review of Systems Constitutional: Denies fever, chills, weight loss ENT: Denies vision changes, eye pain or eye redness, dental caries, dry mouth GI: Denies nausea, vomiting, diarrhea, abdominal pain, change in BM Pulm: Denies SOB, JARAMILLO, hemoptysis, wheezing Cards: Denies chest pain, palpitations Skin: Denies Raynaud's, rash, nail changes, photosensitivity, [employer] HE[employer] C[employer] SOCIAL WORKER: 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 Well appearing and in no apparent painful distress HEENT Conjunctiva and sclera clear. ?Pupils equal round and reactive to light. ?No lymphadenopathy. ? CHEST/RESPIRATORY SYSTEM Normal respiratory effort and able to speak in complete sentences. ?Clear to auscultation bilaterally. ?No crackles, rales, rhonchi, wheezes heard. CARDIAC SYSTEM Regular rate and rhythm. ?S1 and S2 heard no murmurs. ?Radial pulses intact bilaterally MSK Hands: ?Good fiberglass grinder strength bilaterally. No deformities noted. ?No synovitis noted to the MCPs, PIPs or DIPs. ?No tenderness to palpation of these joints. Resolution of the swelling to the bilateral 3rd PIPs Wrists: ?Full range of motion at the wrists without pain. ?No tenderness to palpation or synovitis noted to the wrists. Elbows: Full range of motion without pain. No tenderness, weakness, swelling, increased warmth or erythema. Shoulders: Full range of motion without pain. No tenderness, weakness, swelling, increased warmth or erythema. Hips: Full range of motion without pain. Hip bursa: No tenderness to palpation Knees: ?Full range of motion. ?No tenderness, swelling, increased warmth or erythema.?No effusion or crepitations Ankles: Full range of motion. ?No tenderness, swelling, increased warmth or erythema.? Feet: ?Negative squeeze test. ?No tenderness to palpation or swelling of the MTPs. Tender points:?No tenderness to palpation of the bilateral trapezius, supraspinatus, greater trochanters, anterior costochondral junctions, bilateral gluteal areas, bilateral suboccipital muscle insertions SKIN Skin intact without rashes. Results Reviewed Results Reviewed: Laboratory Tests 08/21/23 12/29/23 04/19/24 09:28 09:48 17:05 WBC 3.3 L RBC 4.59 Hgb 13.4 Hct 41.1 Plt Count 219 D ESR 3 Sodium 141 Potassium 4.4 Chloride 109 H Carbon Dioxide 26 BUN 18 H Creatinine 0.78 Calcium 9.1 D Total Bilirubin 0.6 AST 30 ALT 10 Alkaline Phosphatase 52 C-Reactive Protein < 0.04 Rheumatoid Factor < 13.0 Cycl Citrul Peptide IgG 20 H Hepatitis A IgM Ab Nonreactive Hep Bs Antigen Negative Hep Bs Antibody NONREACTIVE Hep B Core Total Ab Nonreactive Hepatitis C Ab (EIA) Nonreactive TB Test (T-Spot) Com Negative XR Right Knee 10/2022 FINDINGS: No fracture or joint effusion. Alignment is anatomic. Joint spaces are maintained. There is mild subchondral sclerosis and marginal spurring in the lateral patellofemoral compartment. No bony erosive changes are seen. No abnormal soft tissue calcification. XR Bilateral Hands 10/2022 FINDINGS (right hand): Mineralization is normal. There is no fracture or dislocation. There is moderate narrowing of the DIP joints with mild marginal osteophyte consistent with osteoarthritis. The other joint spaces are preserved. No bony erosive changes are seen. There is no soft tissue swelling. FINDINGS (left hand): Mineralization is normal. There is no fracture or dislocation. There is moderate narrowing of the DIP joints with mild marginal osteophyte consistent with osteoarthritis. The other joint spaces are preserved. No bony erosive changes are seen. There is no soft tissue swelling. DEXA 06/2024 FINDINGS: The bone mineral density of the lumbar spine is 1.293 with a T-score of 0.9, and a Z-score of 2.4. This is indicative of normal bone mineral density. This represents a BMD change of 2.3% compared to the prior exam. This is statistically significant. The bone mineral density of the left total hip is 1.026 with a T-score of 0.1, and a Z-score of 1.5. This is indicative of normal bone mineral density. This represents a BMD change of 1.7% compared to the prior exam. This is not statistically significant. The bone mineral density of the left femoral neck is 0.940 with a T-score of -0.7, and a Z-score of 0.9. This is indicative of normal bone mineral density. This represents a BMD change of 4.2% compared to the prior exam. Assessment & Plan Assessment & Plan (1) Seropositive rheumatoid arthritis: Comment: -RF, +CCP Leflunomide since 2020 Kevzara since 03/2024 Code(s): M05.9 - Rheumatoid arthritis with rheumatoid factor, unspecified Category: Medical Plan: #Seropositive rheumatoid arthritis Patient is a 68-year-old female with seropositive rheumatoid arthritis here today for follow up. Currently in remission. Decrease leflunomide Plan - Leflunomide 10mg daily - Kevzara 200mg SC every other week - Labs today: CBC, CMP, ESR, CRP, Lipid panel - RTC 4 months - Labs prior to visit: CBC, CMP, ESR, CRP, Lipid panel (2) Polymyalgia rheumatica: Comment: Initially diagnosed as PMR: Prednisone: 2016-November 2021 for PMR Leflunomide: 2020 - present started in September 2020 as patient was symptomatic with PMR on 9mg of prednsione daily. Previously had bilateral temporal artery biopsies for GCA which were negative. Has been on prednisone since 2016, then off for 1 month in December with recurrence of pain in bilateral shoulders and hips and elevated inflammatory markers in January 2022. Continues to taper prednisone. Apr 2022 patient has been off Prednisone: Start treating as +CCP RA: Increase LEF to 20mg QD Code(s): M35.3 - Polymyalgia rheumatica Category: Medical Plan: #PMR Currently in remission on Kevzara Off prednisone Plan - Kevzara 200mg SC every other week - Continue Kevzara (3) Screening for osteoporosis: Code(s): Z13.820 - Encounter for screening for osteoporosis Plan: #Osteoporosis screening Patient with a history of prolonged prednisone use Last DEXA scan 06/2024. Normal bone density Plan - Continue Vitamin D supplementation (4) senior living current use of immunosuppressive drug: Code(s): Z79.899 - Other intermodal customer service (current) drug therapy Category: Medical Plan: #Long-term Use of Sarilumab Discussed the risks and benefits of Sarilumab with the management of this pat ient's rheumatic condition. ? Benefits include decreased pain, improved mortality, improved quality of life Risks include LFT abnormalities, elevated triglycerides, GI perforations Contraindicated in a patient with history of diverticulitis Monitoring: ?CBC, CMP, triglycerides (5) Encounter for monitoring leflunomide therapy: Code(s): Z51.81 - Encounter for therapeutic drug level monitoring; Z79.69 - senior living (current) use of other immunomodulators and immunosuppressants Category: Medical Plan: #Long-term leflunomide Discussed with patient the benefits and risks of leflunomide for managing the rheumatic condition Benefits include: - Reduced pain, maintenance of remission and reduction of flares Risks include: - GI upset especially diarrhea, skin rash, cytopenias, hepatotoxicity, weight loss, neuropathy Monitoring: ?CBC, BMP, LFTs, hepatitis B and C serologies Plan I spent 20 minutes reviewing the record and labs, taking a history, examining the patient, discussing the treatment plan and documenting in the medical record Medications: New leflunomide 10 mg PO DAILY 90 tabs 1RF M05.9 - Rheumatoid arthritis with rheumatoid factor, unspecified Refilled Kevzara (sarilumab) 200 mg (1.14 mL) subcut Q2W 2 mL 5RF NS M35.3 - Polymyalgia rheumatica Discontinued leflunomide Discontinued Reason: Doctor's Order 20 mg PO DAILY 90 tabs 1RF M05.9 - Rh eumatoid arthritis with rheumatoid factor, unspecified Coding Level of Care Code Est Pt Level 3 (97567) Complex EM visit Add On G2211 Diagnoses Seropositive rheumatoid arthritis M05.9 Polymyalgia rheumatica M35.3 Screening for osteoporosis 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
[2024-08-19 07:38] VITALS: BP 130/80; PULSE 79; O2SAT 96; BMI 29.3
== END 2024-08-19 07:53 | disposition home or self-care (01) ==
LOC: HO.RHE 07:29
PROVIDERS: PCP Internal Medicine; Visit Provider Student in an Organized Health Care Education/Training Program
DX: M05.79 Rheumatoid arthritis with rheumatoid factor of multiple sites without organ or systems involvement (principal); M35.3 Polymyalgia rheumatica; Z13.820 Encounter for screening for osteoporosis; Z79.899 Other long term (current) drug therapy; Z51.81 Encounter for therapeutic drug level monitoring; Z79.69 Long term (current) use of other immunomodulators and immunosuppressants
CPT/HCPCS: 99214; G2211

== ENCOUNTER → 2024-08-19 07:28 | Outpatient (BNVA) | payer OTHER, SELFPAY | PROVIDERS: PCP Internal Medicine; Visit Provider Student in an Organized Health Care Education/Training Program | DX: M81.0 Age-related osteoporosis without current pathological fracture (principal); M05.9 Rheumatoid arthritis with rheumatoid factor, unspecified; Z79.899 Other long term (current) drug therapy; E55.9 Vitamin D deficiency, unspecified; M35.3 Polymyalgia rheumatica ==

== ENCOUNTER 2024-08-19 07:55 | Outpatient (REF) | payer OTHER, SELFPAY ==
[2024-08-19 10:11] LABS: Basophils Percent Auto 1.1 % (0-2); Eosinophils Absolute Auto 0.1 X10*3/uL (0.0-0.4); Hematocrit 41.9 % (37.0-47.0); Lymphocytes Absolute Auto 1.4 X10*3/uL (1.2-4.9); Lymphocytes Percent Auto 51.9 % (20-40); MANUAL DIFF FLAG SCAN; Mean Corpuscular HGB Conc 33.4 g/dl (31.0-35.0); Mean Corpuscular Volume 92.9 fL (80.0-98.0); Mean Platelet Volume 11.2 fL (9.4-12.3); Monocytes Absolute Auto 0.4 X10*3/uL (0.1-1.2); Monocytes Percent Auto 14.2 % (2-11); Neutrophils Absolute Auto 0.8 x10*3/uL (2.0-8.3); Neutrophils Percent Auto 29.8 % (45-73); Platelet Count 199 X10*3/uL (160-400); Red Blood Count 4.51 X10*6/uL (4.20-5.50); SCAN SMEAR FLAG 1; White Blood Count 2.7 X10*3/uL (4.8-10.8)
[2024-08-19 10:27] LABS: Alanine Aminotransferase 11 U/L (0-31); Albumin Level 4.3 g/dL (3.5-5.0); Alkaline Phosphatase 49 U/L (39-117); Anion Gap 14 (12-20); Aspartate Amino Transferase 37 U/L (5-31); Bilirubin Total 0.7 mg/dL (0.0-1.0); Blood Urea Nitrogen 15 mg/dL (9-16); C Reactive Protein < 0.04 mg/dL (< or = 0.50); Calcium 9.5 mg/dL (8.4-10.2); Carbon Dioxide 26 mmol/L (22-29); Chloride 108 mmol/L (96-108); Cholesterol 278 mg/dL (<200); Estimated Glomerular Filt Rate > 60; Glucose Random 82 mg/dL (60-115); HDL Cholesterol 79 mg/dL (>40); LDL Cholesterol Calculated 178 mg/dL (<100); Potassium 4.7 mmol/L (3.3-5.1); Sodium 143 mmol/L (135-145); Total Protein 6.8 g/dL (6.5-8.0); Triglycerides 108 mg/dL (<150)
[2024-08-19 11:00] LABS: Erythrocyte Sedimentation Rate 3 MM/HR (0-20)
[2024-08-19 11:07] LABS: SLIDE REVIEW VERIFIED
[2024-08-23 16:33] LABS: Vitamin D 25-OH, D2 <4 ng/mL; Vitamin D 25-OH, D3 52 ng/mL; Vitamin D 25-OH, Total 52 ng/mL (30-100)
== END 2024-08-19 07:56 | disposition home or self-care (01) ==
LOC: HO.10HDL 07:55
PROVIDERS: Visit Provider Student in an Organized Health Care Education/Training Program
DX: M05.9 Rheumatoid arthritis with rheumatoid factor, unspecified (principal); Z79.899 Other long term (current) drug therapy; E55.9 Vitamin D deficiency, unspecified
CPT/HCPCS: 36415; 80053; 80061; 82306; 85025; 85652; 86140

== ENCOUNTER 2024-12-14 08:27 | Outpatient (REF) | payer OTHER, SELFPAY | END 2024-12-14 08:28 | disposition home or self-care (01) | LOC: HO.LAB 08:27 | PROVIDERS: PCP Internal Medicine; Visit Provider Student in an Organized Health Care Education/Training Program | DX: M35.3 Polymyalgia rheumatica (principal); Z13.6 Encounter for screening for cardiovascular disorders | CPT/HCPCS: 36415; 80053; 80061; 85025; 85652; 86140 ==

== ENCOUNTER 2024-12-17 07:40 | Outpatient (AMB) | payer OTHER, SELFPAY ==
--- OUTSIDE RECORDS SUMMARY | 2024-12-17 07:42 | XMS_ITS | Encounter Summary ---
Author Organization [facility] Address [address] [facility] [address] [place] [address] Phone Care Team Providers Care Burner Tender Name Role Phone Cady Chino ELECTRONIC SERVICE TECHNICIAN Unavailable Markos Martin MD Unavailable [phone] Maddy Kan MD Unavailable Anabel Evans MINE SUPERINTENDENT Unavailable Lillian Duran MD Unavailable Lis Zhang MD Unavailable Vanessa Pena ELECTRONIC SERVICE TECHNICIAN Unavailable [phone] Umair Elizabeth BENDER MACHINE OPERATOR Unavailable Selma Duran MD Unavailable [phone] Maddy Kan MD Primary Care Provider Encounter Details Date Type Department Care Team (Late st Contact Info) Description 10/10/2017 Procedure Pass OR Admitting Dept - Virtual Department [address] [place] [address] Social History Tobacco Use Types Packs/Day Years Used Date Smoking Tobacco: Never Smokeless Tobacco: Never Alcohol Use Standard Drinks/Week Comments Yes 7 (1 standard drink = 0.6 oz pur e alcohol) Comments Unknown Sex and Gender Information Value Date Recorded Sex Assigned at Female 08/02/2022 9:03 AM EDT Legal Sex Female 9:57 PM EDT Gender Identity Female 08/02/2022 9:03 AM EDT Sexual Orientation Lesbian or Cervantes 08/02/2022 9: 03 AM EDT 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 [employer] Not on kaity e Not on file Not on file documented as of this encounter Plan of Treatment Upcoming Encounters Date Type Department Care Team (Late st Contact Info) Description 01/24/2025 11:00 AM EST Office Visit [facility] [address] [place] [address] Unknown, Unknown, MD Camacho, Dangelo Meyer MD [address] [address] 12/09/2025 10:30 AM EDT Office Visit [facility] [address] [place] [address] [place] [address] Maddy Kan MD [address] [place] [address], [address] [place] [address] documented as of this encounter Visit Diagnoses Not on filedocumented in this encounter Additional Health Concerns Infection Onset Date Last Indicated Resolved Time CoV-Presumed 08/11/2021 08/11/2021 09/01/2021 1:21 AM EDT documented as of this encounter Care Teams Burner Tender Relationship Specialty Start Date End Date Maddy Kan MD [address] [place] [address], [address] [place] [address] PCP - General Internal Medicine 06/11/17 Cady Chino NP [address] [place] [address] [email or web address] Historical LMR Provider 01/06/17 Markos Martin MD [address] [facility] [place] [address] Historical LMR Provider 01/06/17 03/31/21 Maddy Kan MD [address] [place] [address], [address] [place] [address] Historical LMR Provider 01/06/17 Anabel Evans FNP [address] [facility] [place] [address] Historical LMR Provider 01/06/17 03/31/21 Lillian Duran MD [address] [facility] [address] [place] [address] Historical LMR Provider 01/06/17 03/31/21 Lis Zhang MD [address] [place] [address] Historical LMR Provider 01/06/17 Vanessa Pena, ELECTRONIC SERVICE TECHNICIAN [address] [place] [address] 6 [place] [address] Historical LMR Provider 01/06/17 03/31/21 Umair Elizabeth, BENDER MACHINE OPERATOR [address] [address] Historical LMR Provider 01/06/17 Selma Duran MD [address] [place] [address] Orthopedics & Sports Medicine, [facility] [place] [address] [email or web address] Historical LMR Provider 01/06/17 documented as of this encounter Additional Source Comments The information contained in this document represents components of the legal health record. It is not the complete legal health record.[facility]
--- OUTSIDE RECORDS SUMMARY | 2024-12-17 07:42 | XMS_ITS | Encounter Summary ---
Author Organization [facility] Address [address] [place] [address] Phone Care Team Providers Care Cad Administrator Name Role Phone Maddy Kan MD Unavailable [phone] Umair Elizabeth CHANGE RELEASE MANAGER Unavailable [phone] Maddy Kan MD Primary Care Provider [phone] Encounter Details Date Type Department Care Team (Late st Contact Info) Description 04/02/2023 Procedure Pass [facility] [address] [place] [address] Social History Tobacco Use Types Packs/Day Years [...] high school, GED, job training, learning the Turkmen language, technical skills, or developing parenting skills)? [...] housing situation today? I have [place] 08/02/2022 How many times have you move [...] computer) with a working camera? Yes 08/02/2022 Comments Unknown Sex and Gender Information Value Date Recorded Sex Assigned at Female 08/02/2022 9:03 AM EDT Legal Sex Female 9:57 PM EDT Gender Identity Female 08/02/2022 9:03 AM EDT Sexual Orientation Lesbian or Cervantes 08/02/2022 9: 03 AM EDT Occupation Industry Job Start Date Job End Date Research computer network and systems engineer of [employer] Not on kaity e Not on file Not on file documented as of this encounter Plan of Treatment Upcoming Encounters Date Type Department Care Team (Late st Contact Info) Description 01/24/2025 11:00 AM EST Office Visit [facility] Gastro[facility]ology Clinic [address] [place] [address] Unknown, Unknown, Dangelo Benitez MD [address] [place] [address] 12/09/2025 10:30 AM EDT Office Visit [facility] [address] [place] [address] [place] [address] Maddy Kan MD [address] [place] [address], [address] [place] [address] documented as of this encounter Visit Diagnoses Not on filedocumented in this encounter Additional Health Concerns Assessment Noted Time PHQ-2 Depression Total Score: 0 08/03/19 23 9:07 AM EDT documented as of this encounter Care Teams Cad Administrator Relationship Specialty Start Date End Date Maddy Kan MD [address] [place] [address] PCP - General Internal Medicine 06/11/17 Maddy Kan MD [address] [place] [address] Historical LMR Provider 01/06/17 Umair Elizabeth CNP [address] [place] [address] Historical LMR Provider 01/06/17 documented as of this encounter Additional Source Comments The information contained in this document represents components of the legal health record. It is not the complete legal health record.[facility]
--- OUTSIDE RECORDS SUMMARY | 2024-12-17 07:42 | XMS_ITS | Encounter Summary ---
Author Organization [facility] Address [address] [place] [address] Phone Care Team Providers Care Rail Transportation Operator Name Role Phone Maddy Kan MD Unavailable [phone] Umair Elizabeth PROPAGATION WORKER Unavailable [phone] Maddy Kan MD Primary Care Provider [phone] Encounter Details Date Type Department Care Team (Late st Contact Info) Description 12/15/2024 Orders Only [facility] [address] [place] [address] Provider, MD [facility] [address] [place] [address] Social History Tobacco Use Types Packs/Day [...] or tries to control you? No 12/24/2023 Comments Unknown Sex and Gender Information Value Date Recorded Sex Assigned at Female 08/02/2022 9:03 AM EDT Legal Sex Female 9:57 PM EDT Gender Identity Female 08/02/2022 9:03 AM EDT Sexual Orientation Lesbian or Cervantes 08/02/2022 9: 03 AM EDT Occupation Industry Job Start Date Job End Date Research project development engineer of [employer] Not on kaity e Not on file Not on file documented as of this encounter Plan of Treatment Upcoming Encounters Date Type Department Care Team (Late st Contact Info) Description 01/24/2025 11:00 AM EST Office Visit [facility] G[facility] Clinic [address] [place] [address] Unknown, Unknown, MD Camacho, Dangelo Meyer MD [address] [address] 12/09/2025 10:30 AM EDT Office Visit [facility] [address] [place] [address] [place] [address] Maddy Kan MD [address] [place] [address] documented as of this encounter Procedures Procedure Name Priority Date/Time Associated Diagnosis Comments OUTSIDE LAB Routine 12/14/2024 4:47 PM EDT documented in this encounter Results * Outside Lab (12/14/2024 4:47 PM EDT) us Historical Provider LAB BLOOD ORDERABLES Edit ed Result - Final documented in this encounter Visit Diagnoses Not on filedocumented in this encounter Additional Health Concerns Assessment Noted Time PHQ-2 Depression Total Score: 0 12/06/19 25 9:36 AM EDT documented as of this encounter Care Teams Rail Transportation Operator Relationship Specialty Start Date End Date Maddy Kan MD [address] [place] [address] PCP - General Internal Medicine 06/11/17 Maddy Kan MD [address] [place] [address] Historical LMR Provider 01/06/17 Umair Elizabeth PROPAGATION WORKER [address] [address] Historical LMR Provider 01/06/17 documented as of this encounter Additional Source Comments The information contained in this document represents components of the legal health record. It is not the complete legal health record.[facility]
--- NOTE | 2024-12-17 07:50 | A.OFFVIS_ITS ---
Vital Signs 12/17/24 07:56 Height 5 ft 3 in Weight 166 lb 6 oz BMI 29.5 BP 132/74 Blood Pressure Location Lt brachial Position Sitting Pulse 87 Pulse Source Pulse Oximeter Pulse Oximetry (%) 98 Oxygen Delivery Method Room Air Intake Visit Reasons: RA Intake Note: Patient presents for RA follow. Allergies Taxol Allergy (Severe, Uncoded 08/27/23 08:44) Vomiting HPI Comments Details: Patient is a 69-year-old female with seropositive rheumatoid arthritis, polymyalgia rheumatica and polyarticular osteoarthritis (involving hands and knees) who is here today for follow up Interval History: Patient last seen 08/19/24 with me. - On Kevzara 200mg SC every 2 weeks and Leflunomide 20mg daily - Patient continues to feel well on her current therapies - Leflunomide decreased to 10mg Today - On Kevzara 200mg SC every 2 weeks and Leflunomide 10mg daily - Patient continues to feel well on her current therapies - Had questions about nodules in the hands Rheumatologic History: Initially diagnosed with PMR: Prednisone: [id number] Relapse in 2019 Leflunomide (2020 - present): started in September 2020 as patient was symptomatic with PMR on 9mg of prednsione daily. Previously had bilateral temporal artery biopsies for GCA which were negative. Tapered prednisone January patient has been off Prednisone: Start treating as +CCP RA: Increase LEF to 20mg QD Kevzara 12/2023 due to persistent RA and PMR sx. (Now in remission) Current Rheumatology Medication(s): Leflunomide 10 mg daily Kevzara 200 mg SC every 2 weeks [facility] Medical History (Updated 04/22/24 @ 12:19 by Celia Weiss MD) Encounter for monitoring leflunomide therapy Screening examination for infectious disease Swelling of right middle finger Seropositive rheumatoid arthritis Constipation Actinic keratosis History of left breast cancer Polymyalgia rheumatica Family History Father Stroke Mother Arthritis COPD (chronic obstructive pulmonary disease) Social History Household Members: None Housing: House Alcohol intake: current Alcohol intake frequency: a few times a week Alcohol type: wine Patient Tobacco Use Status: Never used Tobacco e-Cigarette/Vaping Use: Never Used Review of Systems Const Details: Review of Systems Constitutional: Denies fever, chills, weight loss ENT: Denies vision changes, eye pain or eye redness, dental caries, dry mouth GI: Denies nausea, vomiting, diarrhea, abdominal pain, change in BM Pulm: Denies SOB, JARAMILLO, hemoptysis, wheezing Cards: Denies chest pain, palpitations Skin: Denies Raynaud's, rash, nail changes, photosensitivity, PROMOTIONS OFFICER: Denies headaches, weakness, paresthesias, recurrent falls MSK: as per HPI All other systems reviewed and are unremarkable except noted above Physical Exam Exam Exam: Vital signs reviewed Physical Examination CONSTITUITIONAL Patient alert and cooperative. Well appearing and in no apparent painful distress MSK Hands * Right Hand: Able to make a fist. No swelling or tenderness to palpation of the MCPs, PIPs or DIPs. * Left Hand: Able to make a fist. No swelling or tenderness to palpation of the MCPs, PIPs or DIPs. 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 More fibrosis than contractures at this time Wrists * Right Wrist: Full ROM to flexion and extension. No swelling or TTP * Left Wrist: Full ROM to flexion and extension. No swelling or TTP Elbows * Right Elbow: Full ROM. No swelling or TTP. No TTP of the medial epicondyle. No TTP of the lateral epicondyle * Left Elbow: Full ROM. No swelling or TTP. No TTP of the medial epicondyle. No TTP of the lateral epicondyle Shoulders * Right shoulder: Full ROM. No swelling noted. No TTP of the AC joint. No TTP of the subacromial bursa. No TTP of the posterior shoulder * Left shoulder: Full ROM. No swelling noted. No TTP of the AC joint. No TTP of the subacromial bursa. No TTP of the posterior shoulder Knees * Right knee: Full ROM. No swelling noted. No TTP of the knee joint line. TTP of pes anserine bursa * Left knee: Full ROM. No swelling noted. No TTP of the knee joint line. TTP of pes anserine bursa * Crepitations felt bilaterally Ankles * Right ankle: Good ankle dorsiflexion and plantar flexion. No swelling. No TTP of the ankle joint * Left ankle: Good ankle dorsiflexion and plantar flexion. No swelling. No TTP of the ankle joint Feet * Right foot: Negative squeeze test * Left foot: Negative squeeze test Tender points? * No tenderness to palpation of the bilateral trapezius, supraspinatus, anterior costochondral junctions, bilateral suboccipital muscle insertions SKIN No rashes Vital Signs: Last Vital Signs Pulse 87 12/17/24 07:56 BP 132/74 12/17/24 07:56 Pulse Ox 98 12/17/24 07:56 Oxygen Delivery Method Room Air 12/17/24 07:56 BMI result Body Mass Index 29.5 Results Reviewed Results Reviewed: Laboratory Tests 12/14/24 08:43 WBC 2.7 L RBC 4.48 Hgb 13.8 Hct 41.4 Plt Count 215 ESR 6 Sodium 143 Potassium 4.8 Chloride 108 Carbon Dioxide 28 BUN 10 Creatinine 0.64 AST 36 H ALT 16 C-Reactive Protein < 0.04 Triglycerides 180 H Cholesterol 275 H LDL Cholesterol, Calc 156 H DEXA 06/2024 FINDINGS: The bone mineral density of the lumbar spine is 1.293 with a T-score of 0.9, and a Z-score of 2.4. This is indicative of normal bone mineral density. This represents a BMD change of 2.3% compared to the prior exam. This is statistically significant. The bone mineral density of the left total hip is 1.026 with a T-score of 0.1, and a Z-score of 1.5. This is indicative of normal bone mineral density. This represents a BMD change of 1.7% compared to the prior exam. This is not statistically significant. The bone mineral density of the left femoral neck is 0.940 with a T-score of -0.7, and a Z-score of 0.9. This is indicative of normal bone mineral density. This represents a BMD change of 4.2% compared to the prior exam. Assessment & Plan Assessment & Plan (1) Seropositive rheumatoid arthritis: Comment: -RF, +CCP Leflunomide since 2020 Kevzara since 03/2024 Code(s): M05.9 - Rheumatoid arthritis with rheumatoid factor, unspecified Category: Medical Plan: #Seropositive rheumatoid arthritis Patient is a 69-year-old female with seropositive rheumatoid arthritis here today for follow up. Currently in remission. Stop leflunomide Note made of worsening TGs. Will continue to monitor. Plan - Stop Leflunomide - Kevzara 200mg SC every other week - RTC 6 months - Labs prior to visit: CBC, CMP, ESR, CRP, Lipid panel (2) Polymyalgia rheumatica: Comment: Initially diagnosed as PMR: Prednisone: 2016-November 2021 for PMR Leflunomide: 2020 - present started in September 2020 as patient was symptomatic with PMR on 9mg of prednsione daily. Previously had bilateral temporal artery biopsies for GCA which were negative. Has been on prednisone since 2016, then off for 1 month in December with recurrence of pain in bilateral shoulders and hips and elevated inflammatory markers in January 2022. Continues to taper prednisone. Apr 2022 patient has been off Prednisone: Start treating as +CCP RA: Increase LEF to 20mg QD Code(s): M35.3 - Polymyalgia rheumatica Category: Medical Plan: #PMR Currently in remission on Kevzara Off prednisone Plan - Kevzara 200mg SC every other week - Continue Kevzara (3) Screening for osteoporosis: Code(s): Z13.820 - Encounter for screening for osteoporosis Plan: #Osteoporosis screening Patient with a history of prolonged prednisone use Last DEXA scan 06/2024. 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 ? Benefits include decreased pain, improved mortality, improved quality of life Risks include LFT abnormalities, elevated triglycerides, GI perforations Contraindicated in a patient with history of diverticulitis Monitoring: ?CBC, CMP, triglycerides Plan I spent 30 minutes reviewing the record and labs, taking a history, examining the patient, discussing the treatment plan and documenting in the medical record Coding Level of Care Code Est Pt Level 4 (46067) Complex EM visit Add On G2211 Diagnoses Seropositive rheumatoid arthritis M05.9 Polymyalgia rheumatica M35.3 Screening for osteoporosis Z13.820 terminal make up operator current use of immunosuppressive drug Z79.899
[2024-12-17 07:56] VITALS: BP 132/74; PULSE 87; O2SAT 98; BMI 29.5
== END 2024-12-17 08:17 | disposition home or self-care (01) ==
LOC: HO.RHES 07:41
PROVIDERS: PCP Internal Medicine; Visit Provider Student in an Organized Health Care Education/Training Program
DX: M05.9 Rheumatoid arthritis with rheumatoid factor, unspecified (principal); M35.3 Polymyalgia rheumatica; Z13.820 Encounter for screening for osteoporosis; Z79.899 Other long term (current) drug therapy
CPT/HCPCS: 99214; G2211